=== PATIENT | female | born 1955 | race Caucasian/White ===

== ENCOUNTER 2016-04-04 18:03 | Inpatient (IN) | payer MEDICAID, OTHER ==
[2016-04-04] MEDS ORDERED: DUONEB 0.5-3 MG/3 ml Neb IH ONE ×2 (18:18→18:20)
[2016-04-04] MEDS ORDERED: solu-MEDROL 125 MG IV ONE (18:18)
--- NOTE | 2016-04-04 18:23 | ERPHSYRPT ---
- History of Present Illness Source: patient, family Timing/Duration: day(s) (few) Severity: severe Hx Tetanus, Diphtheria Vaccination/Date Given: Yes Hx Influenza Vaccination/Date Given: Yes Hx Pneumococcal Vaccination/Date Given: No <DELON JIANG - Last Filed: 04/04/16 19:21> <GARYEMANUEL BARNETTSH - Last Filed: 04/04/16 20:11> - History of Present Illness Time Seen by Provider: 04/04/16 18:12 Physician History: CC: short of air Hx: 60 y/o patient of dr Pawan Givens and Munir Benitez. She has couple day hx of increased dyspnea. Some cough. No fever or chills. She has hx of COPD. No hx of thromboembolic disease. No hx of CA or recent travel. Denies chest pain. Dyspnea worsened so came to ER. She used to use oxygen at home but no longer. 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 (DELON JIANG) Allergies/Adverse Reactions: No Known Drug Allergies Allergy (Verified 12/20/15 09:43) Home Medications: Escitalopram Oxalate 10 mg [Lexapro 10 MG] 10 mg PO DAILY 03/01/15 [History] Gabapentin 300 mg PO BID 03/01/15 [History] Simethicone 80 mg [Mylicon 80MG] 80 mg PO QID 03/01/15 [History] Amlodipine Besylate 10 mg [Norvasc 10 MG] 10 mg PO DAILY 09/26/15 [History] Budesonide/Formoterol Fumarate [Symbicort 160-4.5 Mcg Inhaler] 6 gm IH BID 09/25 [History] Ergocalciferol (Vitamin D2) [Vitamin D] 50,000 unit PO DAILY 09/26/15 [History] Ferrous Sulfate 325 mg PO BID 09/26/15 [History] Furosemide [Lasix] 40 mg PO DAILY 09/26/15 [History] Lisinopril [Zestril] 40 mg PO DAILY 09/26/15 [History] Omeprazole 20 MG [Prilosec 20 mg] 20 mg PO DAILY 09/26/15 [History] - Review of Systems Constitutional: Fatigue, Malaise, Weakness, No Fever, No Chills Eyes: No Symptoms Ears, Nose, & Throat: No Symptoms Respiratory: Cough, Dyspnea, Dyspnea on Exertion (AGARWAL) Cardiac: No Chest Pain, No Edema Abdominal/Gastrointestinal: No Abdominal Pain, No Nausea, No Vomiting Genitourinary Symptoms: No Dysuria Musculoskeletal: No Back Pain Skin: No Rash Neurological: No Headache All Other Systems: Reviewed and Negative <DELON JIANG Last Filed: 04/04/16 19:21> - Past Medical History Pertinent Past Medical History: Yes Neurological History: Seizures ENT History: No Pertinent History Cardiac History: No Pertinent History, Hypertension Respiratory History: COPD Endocrine Medical History: No Pertinent History Musculoskeletal History: Osteoarthritis GI Medical History: Gallbladder Disease, Hernia, Other History: Renal Disease Psycho-Social History: Anxiety, Depression Female Reproductive Disorders: No Pertinent History Other Medical History: PERF BOWEL 06/2013. pt states she had a seizure because she ran out of xanax, pt states she does not remember it, [facility] Pt states that her kidneys leak protein. - Past Surgical History Past Surgical History: Yes Neuro Surgical History: No Pertinent History Cardiac: No Pertinent History Respiratory: No Pertinent History Gastrointestinal: Cholecystectomy, Colon Resection Genitourinary: No Pertinent History Musculoskeletal: No Pertinent History Female Surgical History: No Pertinent History - Social History Smoking Status: Former smoker How long have you smoked: 30 Exposure to second hand smoke: No Drug Use: none Patient Lives Alone: No - Female History Hx Now: No <JIANGDELON Last Filed: 04/04/16 19:21> - Physical Exam General Appearance: alert, obese, other (dyspneic) Eye Exam: PERRL/EOMI Ears, Nose, Throat Exam: normal ENT inspection, moist mucous membranes Neck Exam: normal inspection, non-tender, supple Respiratory Exam: diminished breath sounds, wheezing (rare) Cardiovascular Exam: regular rate/rhythm, No murmur Gastrointestinal/Abdomen Exam: soft, other (ventral hernia), No tenderness, No distention Back Exam: normal inspection Extremity Exam: normal inspection, normal range of motion, No calf tenderness, No pedal edema Neurologic Exam: alert, oriented x 3, cooperative Skin Exam: warm, dry, No rash SpO2 Interpretation: hypoxic, ABG ordered, O2 applied SpO2: 77 Oxygen Delivery: Room Air <JIANGDELONDEVAUGHN - Last Filed: 04/04/16 19:21> - Course Nursing assessment & vital signs reviewed: Yes EKG Interpreted by Me: RATE (75), Sinus Rhythm, NORMAL AXIS, NORMAL INTERVALS ( QTc 331), Non-specific ST Changes <DELON JIANG - Last Filed: 04/04/16 19:21> <DELON JIANG - Last Filed: 04/04/16 19:21> - Progress Progress: improved Discussed with .: Delon Will see patient in: hospital (observation) Counseled pt/family regarding: lab results, diagnosis, need for follow-up, rad results <FREDI VEGA - Last Filed: 04/04/16 20:11> - Progress Progress Note: 04/04/16 19:21 Pt improved. She is weaning oxygen. She will have CTA to rule out PE. Cultures sent. Nebs, steroids and abtx given. Reported to Dr Vega for further care and disposition. (DELON JIANG) <DELON JIANG - Last Filed: 04/04/16 19:21> - Departure Time of Disposition: 20:09 Departure Disposition: In-patient Admission Critical Care Time: Yes Critical Care Time(excluding separately billable procedures): 30-74 minutes <FREDI VEGA - Last Filed: 04/04/16 20:11> - Departure Clinical Impression: Acute exacerbation of chronic obstructive airways disease, Acute on chronic respiratory failure with hypoxemia Pneumonia Qualifiers: Pneumonia type: due to other aerobic Gram-negative bacteria Laterality: bilateral Lung location: lower lobe of lung Qualified Code(s): J15.6 - Pneumonia due to other aerobic Gram-negative bacteria Condition: Fair Referrals: NIKKI GIVENS [Primary Care Provider] - Instructions: Chronic Obstructive Pulmonary Disease
[2016-04-04] MEDS ORDERED: solu-MEDROL 125 MG ONE (18:29)
[2016-04-04 18:33] LABS: A-aADO2 212; ALLEN TEST OK? YES; ARTERIAL BLD GAS O2 SATURATION 93.9 % (95-100); ARTERIAL BLOOD GAS FIO2 50 %; ARTERIAL BLOOD GAS PO2 66 mmHg (75-100); ARTERIAL BLOOD GAS pH 7.37 (7.35-7.45); Lactic Acid 0.8 (0.4-2.0)
[2016-04-04 18:34] LABS: Mean Cell Volume 98.3 fl (78-100); Mean Platelet Volume 9.8 fl (6-9.5); Platelet Count 395 K/mm3 (150-450); Red Cell Distribution Width 14.4 % (11.5-14.0); White Blood Count 16.2 K/mm3 (4.0-10.5)
[2016-04-04 18:40] LABS: Mean Corpuscular Hemoglobin 29.7 pg (26-32)
[2016-04-04 18:46] LABS: INR 0.98 (0.8-3.0)
[2016-04-04 18:48] LABS: PTT 31.8 SECONDS (25.3-37.0)
[2016-04-04] MEDS ORDERED: ROCEPHIN 1 Gm-D5w 50 ml Bag** 50 ML IV ONE ×2 (18:52→19:11)
[2016-04-04] MEDS ORDERED: Zithromax 500 MG/ 250 ML NaCl Premix 250 ML IV ONE ×2 (18:52→20:17)
[2016-04-04 18:57] LABS: ALBUMIN 3.2 g/dL (3.4-5.0); ALKALINE PHOSPHATASE 130 U/L (46-116); ANION GAP 6.6 MEQ/L (5-15); BILIRUBIN,TOTAL 0.4 mg/dL (0.2-1.0); BLOOD UREA NITROGEN 8 mg/dL (9-20); CHLORIDE 98 mEq/L (98-107); Carbon Dioxide 34.3 mEq/L (21-32); Glucose 150 MG/DL (70-110); Potassium 3.2 mEq/L (3.5-5.1); SGOT/AST 17 U/L (15-37); SGPT/ALT 21 U/L (12-78); SODIUM 136 mEq/L (136-145); Total Protein 7.8 gm/dL (6.4-8.2)
[2016-04-04 19:02] LABS: TROPONIN < 0.017 ng/ml (0.000-0.056)
[2016-04-04 19:12] LABS: Eosinophil 1 % (0.00-3.0); Platelet Estimate NORMAL (NORMAL); Total Cells Counted 100
--- NOTE | 2016-04-04 20:02 | XRAY ---
Indication: Dyspnea. Comparison: July 07, 2013 Portable chest again markedly limited by patient body habitus. Lungs are also less inflated accentuating the cardiopulmonary structures. Diffuse bilateral hazy opacities either infiltrates versus atelectasis that should be correlated clinically. No pneumothorax. CT may yield further information if clinically warranted.
[2016-04-04] MEDS: XANAX 1 MG PO SCH (23:28)
[2016-04-05] MEDS ORDERED: DUONEB 0.5-3 MG/3 ml Neb IH ONE (00:45)
[2016-04-05] MEDS: DUONEB 0.5-3 MG/3 ml Neb IH SCH ×4 (01:28→19:10)
[2016-04-05] MEDS: Advair Hfa 230/21 Mcg COMMON CANISTER IH SCH ×2 (07:08→19:11)
--- NOTE | 2016-04-05 08:50 | XRAY ---
Indication: Short of breath, cough, and elevated WBC. Elevated d-dimer. Multiple contiguous axial images obtained through the chest using 80 cc Isovue-370 contrast and PE protocol. Comparison: Conventional CT chest with contrast exam of February 28, 2015. There is adequate opacification of the pulmonary arteries. Evaluation for pulmonary embolus distal to the lobar branches limited due to body habitus. No filling defect or pulmonary embolus in the more central pulmonary arteries. The heart is now enlarged. No pericardial effusion/thickening. Aorta again minimally calcified without aneurysm/dissection. Again a few small mediastinal nodes, largest right subcarinal measuring 11 x 21 mm. Examination of the lung parenchyma demonstrates increasing small bilateral effusions and bibasilar dependent atelectasis. Also new diffuse infiltrates throughout the left upper and left lower lobes with lesser degree in the right upper lobe. Bony thorax intact with minimal degenerative changes throughout the spine and old right rib fractures. Limited upper abdomen again demonstrates fatty liver and 12 cm splenomegaly. Impression: 1. Pulmonary embolus evaluation limited due to body habitus. No central pulmonary embolus. 2. New cardiomegaly with bilateral pleural effusions. Rule out cardiac decompensation. 3. New bilateral infiltrates, left greater than right favoring pneumonia. 4. Stable fatty liver and splenomegaly. CTDI 23.69
[2016-04-05] MEDS: XANAX 1 MG PO SCH ×3 (09:44→21:35)
--- NOTE | 2016-04-05 09:50 | PCM.HP ---
History of Present Illness - Chief Complaint Chief Complaint: Shortness of Breath History of Present Illness: is a 60 year old female who presented with shortness of breath, she hasn't had much cough, no fever, no swelling in her extremities. She has a history of copd, ct scan showed pneumonia in ER, no PE. - Review of Systems Constitutional: No Fever, No Chills Respiratory: Short Of Breath, No Cough Cardiac: No Chest Pain, No Edema, No Syncope Abdominal/Gastrointestinal: No Abdominal Pain, No Nausea, No Vomiting, No Diarrhea All Other Systems: Reviewed and Negative Medications & Allergies Home Medications: Home Medication List Escitalopram Oxalate 10 mg [Lexapro 10 MG] 10 mg PO DAILY 03/01/15 [History Confirmed 12/20/15] Gabapentin 300 mg PO BID 03/01/15 [History Confirmed 12/20/15] Simethicone 80 mg [Mylicon 80MG] 80 mg PO QID 03/01/15 [History Confirmed 12/20/15] Alprazolam 1 mg [Xanax 1 mg] 1 mg PO TID #90 tablet 03/02/15 [Rx Confirmed 12/20/15] Amlodipine Besylate 10 mg [Norvasc 10 MG] 10 mg PO DAILY 09/26/15 [History Confirmed 12/20/15] Budesonide/Formoterol Fumarate [Symbicort 160-4.5 Mcg Inhaler] 6 gm IH BID 09/25 [History Confirmed 12/20/15] Ergocalciferol (Vitamin D2) [Vitamin D] 50,000 unit PO DAILY 09/26/15 [History Confirmed 12/20/15] Ferrous Sulfate 325 mg PO BID 09/26/15 [History Confirmed 12/20/15] Furosemide [Lasix] 40 mg PO DAILY 09/26/15 [History Confirmed 12/20/15] Lisinopril [Zestril] 40 mg PO DAILY 09/26/15 [History Confirmed 12/20/15] Omeprazole 20 MG [Prilosec 20 mg] 20 mg PO DAILY 09/26/15 [History Confirmed 08/29] Potassium Chloride 10 Meq Tab* [Klor Con 10 MEQ] 10 meq PO QID #120 [Rx Confirmed 09/26/15] Allergies/Adverse Reactions: Allergies Allergy/AdvReac Type Severity Reaction Status Date / Time No Known Drug Allergies Allergy Verified 12/20/15 09:43 - Past Medical History Past Medical History: Yes Neurological History: Seizures ENT History: No Pertinent History Cardiac History: No Pertinent History, Hypertension Respiratory History: COPD Endocrine Medical History: No Pertinent History Musculoskelatal History: Osteoarthritis GI Medical History: Gallbladder Disease, Hernia, Other History: Renal Disease Pyscho-Social History: Anxiety, Depression Reproductive Disorders: No Pertinent History Comment: PERF BOWEL 06/2013. pt states she had a seizure because she ran out of xanax, pt states she does not remember it, [facility] Pt states that her kidneys leak protein. - Female History Are you now?: No - Past Surgical History Past Surgical History: Yes Neuro Surgical History: No Pertinent History Cardiac History: No Pertinent History Respiratory Surgery: No Pertinent History GI Surgical History: Cholecystectomy, Colon Resection Genitourinary Surgical Hx: No Pertinent History Musculskeletal Surgical Hx: No Pertinent History Female Surgical History: No Pertinent History - Social History Smoking Status: Former smoker How long have you smoked: 30 Exposure to second hand smoke: No Alcohol: None Drug Use: none - Physical Exam Vital Signs: Vital Signs - 24 hr Temp Pulse Resp BP Pulse Ox 04/05/16 07:23 98.7 F 80 20 128/74 96 04/05/16 07:00 84 24 83 L 04/05/16 04:00 98.8 F 76 20 131/77 92 L 04/05/16 01:32 73 24 92 L 04/05/16 00:00 98.6 F 88 24 141/76 93 L 04/04/16 22:00 98.3 F 82 24 156/71 92 L 04/04/16 21:58 72 22 92 L 04/04/16 20:15 75 22 152/130 92 L 04/04/16 19:22 77 L 04/04/16 19:18 75 26 H 137/59 93 L 04/04/16 18:34 76 28 H 92 L 04/04/16 18:25 77 L 04/04/16 18:11 90 28 H 126/62 94 L Oxygen-Last 24 hours O2 Percentage 5 Liters = 40% O2 Percentage 5 Liters = 40% O2 Percentage 5 Liters = 40% O2 Percentage 5 Liters = 40% O2 Percentage 5 Liters = 40% O2 Percentage 35% O2 Percentage 50% O2 Percentage 50% General Appearance: no apparent distress, alert, obese Respiratory Exam: crackles/rales Cardiovascular Exam: regular rate/rhythm, normal heart sounds, normal peripheral pulses Gastrointestinal/Abdomen Exam: soft, normal bowel sounds, No tenderness, No mass Extremity Exam: normal inspection, normal range of motion, pedal edema, swelling Skin Exam: normal color, warm, dry, No rash Results - Other Procedures and Tests Respiratory Therapy 04/04/16 22:18 Oxygen NASAL CANNULA 2 lpm 04/04/16 22:19 Respiratory MDI BID 04/04/16 22:20 neb [Respiratory Nebulizer] Q6H Assessment/Plan (1) Acute exacerbation of chronic obstructive airways disease Current Visit: Yes Status: Acute Assessment & Plan: continue IV steroids and rocephin/zithromax Code(s): J44.1 - CHRONIC OBSTRUCTIVE PULMONARY DISEASE W (ACUTE) EXACERBATION (2) Pneumonia Current Visit: Yes Status: Acute Qualifiers: Pneumonia type: due to other aerobic Gram-negative bacteria Laterality: bilateral Lung location: lower lobe of lung Qualified Code(s): J15.6 - Pneumonia due to other aerobic Gram-negative bacteria Assessment & Plan: continue rocephin and zithromax Code(s): J18.9 - PNEUMONIA, UNSPECIFIED ORGANISM
[2016-04-05] MEDS: solu-MEDROL 125 MG IV SCH ×2 (10:10→16:11)
[2016-04-05] MEDS: ENOXAPARIN SODIUM SQ SCH (10:10)
[2016-04-05] MEDS: TYLENOL 325 MG PO PRN ×2 (10:10→21:35)
[2016-04-05] MEDS: NEURONTIN 300 MG PO SCH ×2 (16:10→21:35)
[2016-04-05] MEDS: NORVASC 5 MG PO SCH (16:10)
[2016-04-05] MEDS: Zestril 20 MG PO SCH (16:10)
[2016-04-05] MEDS: Lexapro 10 MG PO SCH (16:10)
[2016-04-05] MEDS: Mylicon 80MG PO SCH ×2 (16:10→21:34)
[2016-04-05] MEDS: FEOSOL 325 MG PO SCH (21:34)
[2016-04-05] MEDS: ROCEPHIN 1 Gm-D5w 50 ml Bag** 50 ML IV SCH (21:35)
[2016-04-05] MEDS: Sodium Chloride 0.9% 10 ML FLUSH Syringe IV SCH (21:36)
[2016-04-05] MEDS: Ambien 5 MG Tablet PO PRN (21:36)
[2016-04-05] MEDS ORDERED: NON-FORMULARY ITEM (Ferrous Sulfate [Ferrous Sulfate] 325 MG) PO SCH (22:00)
[2016-04-05] MEDS: Zithromax 500 MG/ 250 ML NaCl Premix 250 ML IV SCH (22:12)
[2016-04-06] MEDS: DUONEB 0.5-3 MG/3 ml Neb IH SCH ×4 (00:28→19:13)
[2016-04-06] MEDS: solu-MEDROL 125 MG IV SCH ×3 (01:01→17:07)
[2016-04-06] MEDS: Advair Hfa 230/21 Mcg COMMON CANISTER IH SCH ×2 (05:58→19:13)
[2016-04-06 06:00] LABS: Mean Cell Volume 100.6 fl (78-100); Mean Platelet Volume 9.7 fl (6-9.5); Platelet Count 401 K/mm3 (150-450); Red Blood Count 3.63 M/mm3 (4.1-5.4); Red Cell Distribution Width 14.5 % (11.5-14.0); White Blood Count 17.1 K/mm3 (4.0-10.5)
[2016-04-06 06:02] LABS: Mean Corpuscular Hemoglobin 29.4 pg (26-32)
[2016-04-06] MEDS: XANAX 1 MG PO SCH ×3 (06:13→21:30)
[2016-04-06] MEDS: Sodium Chloride 0.9% 10 ML FLUSH Syringe IV SCH ×3 (06:14→21:31)
[2016-04-06 06:25] LABS: ANION GAP 11.2 MEQ/L (5-15); Carbon Dioxide 32.1 mEq/L (21-32); Potassium 3.8 mEq/L (3.5-5.1)
--- NOTE | 2016-04-06 07:31 | PCM.NOTE ---
Date and Time: 04/06/16728 Subjective Assessment: patient feeling a little better, seems like right lung is opening up and she is bringing up more sputum. Objective Exam General Appearance: obese Skin Exam: normal color, warm, dry Respiratory Exam: prolonged expirations, crackles/rales Cardiovascular Exam: regular rate/rhythm, normal heart sounds Gastrointestinal/Abdomen Exam: soft, No tenderness, No mass Extremity Exam: normal inspection, normal range of motion OBJECTIVE DATA Vital Signs: Vital Signs - 24 hr Temp Pulse Resp BP Pulse Ox 04/06/16 07:15 97.8 F 81 22 106/58 96 04/06/16 05:59 82 24 93 L 04/06/16 04:00 97.6 F 83 26 H 123/58 95 04/06/16 00:31 80 20 94 L 04/06/16 00:00 97.8 F 80 20 100/51 97 04/05/16 20:00 98.1 F 85 22 129/73 95 04/05/16 19:00 85 22 95 04/05/16 15:44 97.8 F 70 18 118/68 94 L 04/05/16 13:00 73 18 95 04/05/16 12:18 97.7 F 78 22 115/63 96 Oxygen-Last 24 hours O2 Percentage 5 Liters = 40% O2 Percentage 5 Liters = 40% O2 Percentage 5 Liters = 40% O2 Percentage 5 Liters = 40% O2 Percentage 5 Liters = 40% Pain Assessment - Last Documented Pain Intensity 2 Pain Scale Used 0-10 Pain Scale Intake and Output: Intake & Output 04/03/16 04/04/16 04/05/16 04/06/16 11:59 11:59 11:59 11:59 Intake Total 1785 1740 Balance 1785 1740 Weight 117.843 kg Lab Results: Lab Results-Last 24 Hours 04/06/16 04/06/16 Range/Units 04:30 04:30 WBC 17.1 H (4.0-10.5) K/mm3 RBC 3.63 L (4.1-5.4) M/mm3 Hgb 10.7 L (12.0-16.0) gm/dl Hct 36.5 (35-47) % MCV 100.6 H (78-100) fl MCH 29.4 (26-32) pg MCHC 29.3 L (32-36) g/dl RDW 14.5 H (11.5-14.0) % Plt Count 401 (150-450) K/mm3 MPV 9.7 H (6-9.5) fl Sodium 138 (136-145) mEq/L Potassium 3.8 (3.5-5.1) mEq/L Chloride 98 (98-107) mEq/L Carbon Dioxide 32.1 H (21-32) mEq/L Anion Gap 11.2 (5-15) MEQ/L BUN 13 (9-20) mg/dL Creatinine 1.10 (0.55-1.30) mg/dl Estimated GFR 54 ML/MIN Glucose 332 H (70-110) MG/DL Calcium 8.5 (8.5-10.1) mg/dL NT-Pro-B Natriuret Pep 1886 H (0-125) pg/ml Multi-Disciplinary Progress Notes: Multi-Disciplinary Progress Notes 04/05/16 08:46 Case Management Note by Martha Carreon DISCHARGE PLAN REVIEWED. NORMALLY LIVES AT HOME WITH ONE GROWN CHILD IN THE HOME, INDEPENDENT OF ALL ADL'S. PT HAS A WALKER, NO OTHER DME'S. PLAN TO RETURN HOME TO PRE EPISODIC LEVEL OF FUNCTION. WILL CONTINUE TO MONITOR FOR ALL DISCHARGE NEEDS. Initialized on 04/05/16 08:46 - END OF NOTE Assessment/Plan (1) Acute exacerbation of chronic obstructive airways disease Current Visit: Yes Status: Acute Assessment & Plan: continue IV solu medrol and abx. improving at this time Code(s): J44.1 - CHRONIC OBSTRUCTIVE PULMONARY DISEASE W (ACUTE) EXACERBATION (2) Pneumonia Current Visit: Yes Status: Acute Qualifiers: Pneumonia type: due to other aerobic Gram-negative bacteria Laterality: bilateral Lung location: lower lobe of lung Qualified Code(s): J15.6 - Pneumonia due to other aerobic Gram-negative bacteria Code(s): J18.9 - PNEUMONIA, UNSPECIFIED ORGANISM
[2016-04-06] MEDS: ENOXAPARIN SODIUM SQ SCH (09:03)
[2016-04-06] MEDS: FEOSOL 325 MG PO SCH ×2 (09:04→21:30)
[2016-04-06] MEDS: NEURONTIN 300 MG PO SCH ×2 (09:04→21:30)
[2016-04-06] MEDS: Lexapro 10 MG PO SCH (09:04)
[2016-04-06] MEDS: NORVASC 5 MG PO SCH (09:04)
[2016-04-06] MEDS: Zestril 20 MG PO SCH (09:05)
[2016-04-06] MEDS: Mylicon 80MG PO SCH ×4 (09:07→21:30)
[2016-04-06 09:25] LABS: BAND 3 % (0.0-2.0); Platelet Estimate NORMAL (NORMAL); Total Cells Counted 100
[2016-04-06 09:27] LABS: Polychromasia 2+
[2016-04-06 09:28] LABS: Basophilic Stippling 2+
[2016-04-06] MEDS ORDERED: NON-FORMULARY ITEM (Amlodipine Besylate 10 Mg [Norvasc 10 Mg] 10 MG) PO SCH (10:00)
[2016-04-06] MEDS ORDERED: NON-FORMULARY ITEM (Lisinopril [Zestril] 40 MG) PO SCH (10:00)
[2016-04-06] MEDS: TYLENOL 325 MG PO PRN (19:57)
[2016-04-06] MEDS: ROCEPHIN 1 Gm-D5w 50 ml Bag** 50 ML IV SCH (21:29)
[2016-04-06] MEDS: Ambien 5 MG Tablet PO PRN (21:32)
[2016-04-06] MEDS: Zithromax 500 MG/ 250 ML NaCl Premix 250 ML IV SCH (22:08)
[2016-04-07] MEDS: solu-MEDROL 125 MG IV SCH (01:00)
[2016-04-07] MEDS: DUONEB 0.5-3 MG/3 ml Neb IH SCH ×4 (01:46→18:48)
[2016-04-07 05:48] LABS: Mean Cell Volume 101.4 fl (78-100); Mean Platelet Volume 9.8 fl (6-9.5); Platelet Count 352 K/mm3 (150-450); Red Blood Count 3.56 M/mm3 (4.1-5.4); Red Cell Distribution Width 14.7 % (11.5-14.0); White Blood Count 14.1 K/mm3 (4.0-10.5)
[2016-04-07 05:53] LABS: Mean Corpuscular Hemoglobin 29.7 pg (26-32)
[2016-04-07 06:04] LABS: ANION GAP 8.3 MEQ/L (5-15); Carbon Dioxide 35.3 mEq/L (21-32); Potassium 4.1 mEq/L (3.5-5.1)
[2016-04-07] MEDS: Advair Hfa 230/21 Mcg COMMON CANISTER IH SCH ×2 (06:17→18:48)
[2016-04-07] MEDS: Sodium Chloride 0.9% 10 ML FLUSH Syringe IV SCH ×3 (06:23→22:35)
[2016-04-07] MEDS: XANAX 1 MG PO SCH ×3 (06:24→21:34)
[2016-04-07] MEDS: TYLENOL 325 MG PO PRN ×2 (06:29→21:34)
[2016-04-07 06:38] LABS: Platelet Estimate NORMAL (NORMAL); Total Cells Counted 100
--- NOTE | 2016-04-07 08:18 | PCM.NOTE ---
Date and Time: 04/07/16812 Subjective Assessment: Very short of breath currently with just ambulating from the restroom. She reports no previous known heart disease but does state she was taking lasix prior to coming to the hospital every day. She was being treated for c. diff in the recent past as well. Objective Exam General Appearance: mild distress, obese, other (short of breath after ambulation) Neurologic Exam: alert, oriented x 3 Skin Exam: warm, dry Ears, Nose, Throat Exam: moist mucous membranes Neck Exam: non-tender, supple Respiratory Exam: other (limited by obesity no wheezing minimal rales throughout ) Cardiovascular Exam: regular rate/rhythm, other (limited by obesity) Gastrointestinal/Abdomen Exam: soft, normal bowel sounds, No tenderness Extremity Exam: No calf tenderness, No pedal edema OBJECTIVE DATA Vital Signs: Vital Signs - 24 hr Temp Pulse Resp BP Pulse Ox 04/07/16 07:15 97.7 F 76 19 99/49 96 04/07/16 06:18 84 18 93 L 04/07/16 04:00 98.4 F 86 18 115/59 93 L 04/07/16 01:46 75 22 94 L 04/06/16 23:42 98.5 F 82 24 123/58 95 04/06/16 20:00 97.8 F 78 24 136/64 94 L 04/06/16 19:14 75 18 93 L 04/06/16 16:18 98 F 70 20 132/66 96 04/06/16 12:41 97.7 F 90 20 130/60 94 L 04/06/16 11:00 88 20 97 Oxygen-Last 24 hours O2 Percentage 5 Liters = 40% O2 Percentage 5 Liters = 40% O2 Percentage 5 Liters = 40% O2 Percentage 5 Liters = 40% O2 Percentage 5 Liters = 40% O2 Percentage 5 Liters = 40% Pain Assessment - Last Documented Pain Intensity 5 Pain Scale Used FLACC Intake and Output: Intake & Output 04/04/16 04/05/16 04/06/16 04/07/16 11:59 11:59 11:59 11:59 Intake Total 1781979 1860 Output Total 200 Balance 1785 1780 1860 Weight 117.843 kg Lab Results: Lab Results-Last 24 Hours 04/06/16 04/07/16 04/07/16 Range/Units 04:30 05:40 05:40 WBC 17.1 H 14.1 H (4.0-10.5) K/mm3 RBC 3.63 L 3.56 L (4.1-5.4) M/mm3 Hgb 10.7 L 10.6 L (12.0-16.0) gm/dl Hct 36.5 36.1 (35-47) % MCV 100.6 H 101.4 H (78-100) fl MCH 29.4 29.7 (26-32) pg MCHC 29.3 L 29.4 L (32-36) g/dl RDW 14.5 H 14.7 H (11.5-14.0) % Plt Count 401 352 (150-450) K/mm3 MPV 9.7 H 9.8 H (6-9.5) fl Segmented Neutrophils 94 H 94 H (36.0-66.0) % Band Neutrophils 3 H (0.0-2.0) % Lymphocytes (Manual) 2 L 6 L (24-44) % Monocytes (Manual) 1 (0.0-12.0) % Differential Comment ABNORMAL NORMAL Platelet Estimate NORMAL NORMAL (NORMAL) Polychromasia 2+ Basophilic Stippling 2+ Sodium 138 (136-145) mEq/L Potassium 4.1 (3.5-5.1) mEq/L Chloride 98 (98-107) mEq/L Carbon Dioxide 35.3 H (21-32) mEq/L Anion Gap 8.3 (5-15) MEQ/L BUN 16 (9-20) mg/dL Creatinine 1.07 (0.55-1.30) mg/dl Estimated GFR 56 ML/MIN Glucose 370 H (70-110) MG/DL Calcium 8.2 L (8.5-10.1) mg/dL Radiology Exams: Radiology Procedures Category Date Time Status CHEST 1 VIEW (PORTABLE) Routine Exams 04/07/16 08:12 Ordered ECHO W/2D AND DOPPLER [US] Routine Exams 04/07/16 08:09 Ordered Assessment/Plan (1) Pneumonia Current Visit: Yes Status: Acute Qualifiers: Pneumonia type: due to other aerobic Gram-negative bacteria Laterality: bilateral Lung location: lower lobe of lung Qualified Code(s): J15.6 - Pneumonia due to other aerobic Gram-negative bacteria Assessment & Plan: weant the steroid add accucheck and sliding scale with the elevated sugars check echo with the cardiomegaly wean O2 as tolerated although still on 5L repeat cxr with the severe sob restart her lasix and potassium Code(s): J18.9 - PNEUMONIA, UNSPECIFIED ORGANISM (2) Acute on chronic respiratory failure with hypoxemia Current Visit: Yes Status: Acute Code(s): J96.21 - ACUTE AND CHRONIC RESPIRATORY FAILURE WITH HYPOXIA (3) Acute exacerbation of chronic obstructive airways disease Current Visit: Yes Status: Acute Code(s): J44.1 - CHRONIC OBSTRUCTIVE PULMONARY DISEASE W (ACUTE) EXACERBATION (4) Hypertension Current Visit: Yes Status: Chronic Assessment & Plan: hold amlodipine witht he lower pressures Code(s): I10 - ESSENTIAL (PRIMARY) HYPERTENSION (5) Anxiety Current Visit: Yes Status: Chronic Code(s): F41.9 - ANXIETY DISORDER, UNSPECIFIED (6) Anemia Current Visit: Yes Status: Acute Code(s): D64.9 - ANEMIA, UNSPECIFIED (7) Morbid obesity Current Visit: Yes Status: Chronic Code(s): E66.01 - MORBID (SEVERE) OBESITY DUE TO EXCESS CALORIES
[2016-04-07] MEDS: FEOSOL 325 MG PO SCH ×2 (08:33→21:34)
[2016-04-07] MEDS: ENOXAPARIN SODIUM SQ SCH (08:33)
[2016-04-07] MEDS: Lexapro 10 MG PO SCH (08:35)
[2016-04-07] MEDS: Lasix 40 MG PO SCH (08:35)
[2016-04-07] MEDS: Klor Con 10 MEQ PO SCH (08:35)
[2016-04-07] MEDS: Mylicon 80MG PO SCH ×4 (08:36→21:34)
[2016-04-07] MEDS: NEURONTIN 300 MG PO SCH ×2 (08:36→21:34)
[2016-04-07] MEDS: Zestril 20 MG PO SCH (08:36)
--- NOTE | 2016-04-07 09:03 | XRAY ---
Indication: Short of breath. Comparison: April 04, 2016 Portable chest again limited by body habitus and appears grossly unchanged with underinflated lungs, bilateral infiltrates/atelectasis/effusion, and borderline cardiomegaly. No new cardiopulmonary findings.
[2016-04-07] MEDS ORDERED: DELTASONE 20 MG PO SCH (10:00)
[2016-04-07] MEDS: NovoLOG Insulin SQ PRN ×3 (11:22→22:25)
[2016-04-07] MEDS: ROCEPHIN 1 Gm-D5w 50 ml Bag** 50 ML IV SCH (21:35)
[2016-04-07] MEDS: Ambien 5 MG Tablet PO PRN (21:43)
[2016-04-07] MEDS: Zithromax 500 MG/ 250 ML NaCl Premix 250 ML IV SCH (22:26)
[2016-04-08] MEDS: DUONEB 0.5-3 MG/3 ml Neb IH SCH ×4 (00:38→19:43)
[2016-04-08 05:47] LABS: Mean Cell Volume 99.7 fl (78-100); Mean Platelet Volume 9.7 fl (6-9.5); Platelet Count 342 K/mm3 (150-450); Red Blood Count 3.63 M/mm3 (4.1-5.4); Red Cell Distribution Width 14.6 % (11.5-14.0)
[2016-04-08 05:51] LABS: Mean Corpuscular Hemoglobin 29.4 pg (26-32)
[2016-04-08 06:09] LABS: ANION GAP 8.5 MEQ/L (5-15); Carbon Dioxide 37.9 mEq/L (21-32); Potassium 3.7 mEq/L (3.5-5.1)
[2016-04-08] MEDS: Advair Hfa 230/21 Mcg COMMON CANISTER IH SCH ×2 (06:49→19:43)
[2016-04-08] MEDS: XANAX 1 MG PO SCH ×3 (07:09→21:54)
[2016-04-08] MEDS ORDERED: Klor Con 10 MEQ PO ONE (07:41)
[2016-04-08] MEDS ORDERED: Lasix 20 MG/2 ML IV ONE (07:41)
--- NOTE | 2016-04-08 07:46 | PCM.NOTE ---
Date and Time: 04/08/1642 Subjective Assessment: still short of breath but slowly improving no new symptoms no swelling no pain Objective Exam General Appearance: obese Neurologic Exam: alert, oriented x 3, cooperative Skin Exam: warm, dry Eye Exam: No scleral icterus Ears, Nose, Throat Exam: moist mucous membranes Neck Exam: non-tender, supple Respiratory Exam: crackles/rales (bibasilar with mild rhonchi exam is limited by body habitus/extreme obesity) Cardiovascular Exam: regular rate/rhythm (distant heart sounds limited by obesity) Gastrointestinal/Abdomen Exam: soft, normal bowel sounds, No tenderness Extremity Exam: No calf tenderness, No pedal edema OBJECTIVE DATA Vital Signs: Vital Signs - 24 hr Temp Pulse Resp BP Pulse Ox 04/08/16 07:26 98.3 F 74 18 135/60 95 04/08/16 07:00 74 20 97 04/08/16 04:00 98.3 F 92 H 19 113/54 92 L 04/08/16 00:38 82 19 95 04/08/16 00:00 98.1 F 85 21 126/62 96 04/07/16 20:00 98.9 F 83 21 127/56 94 L 04/07/16 18:00 87 20 95 04/07/16 16:00 20 04/07/16 15:55 97.7 F 82 20 118/52 93 L 04/07/16 12:00 74 18 98 04/07/16 11:18 97.7 F 87 21 143/65 96 04/07/16 08:42 75 132/76 04/07/16 08:00 19 Oxygen-Last 24 hours O2 Percentage 3 Liters = 32% O2 Percentage 4 Liters = 36% O2 Percentage 4 Liters = 36% O2 Percentage 4 Liters = 36% O2 Percentage 5 Liters = 40% Pain Assessment - Last Documented Pain Intensity 5 Pain Scale Used 0-10 Pain Scale Intake and Output: Intake & Output 04/05/16 04/06/16 04/07/16 04/08/16 11:59 11:59 11:59 11:59 Intake Total 1784 1979 1859 1500 Output Total 200 Balance 1784 1779 1860 1500 Weight 117.843 kg 117.843 kg Lab Results: Accuchecks Date 04/07/16 Date 04/07/16 Date 04/07/16 Date 04/07/16 Time 16:30 Time 11:30 Time 11:22 Accucheck Value: 247 Accucheck Value: 234 Accucheck Value: 328 Accucheck Value: 328 Lab Results-Last 24 Hours 04/07/16 04/08/16 04/08/16 Range/Units 08:19 05:40 05:40 WBC 13.0 H (4.0-10.5) K/mm3 RBC 3.63 L (4.1-5.4) M/mm3 Hgb 10.7 L (12.0-16.0) gm/dl Hct 36.2 (35-47) % MCV 99.7 (78-100) fl MCH 29.4 (26-32) pg MCHC 29.6 L (32-36) g/dl RDW 14.6 H (11.5-14.0) % Plt Count 342 (150-450) K/mm3 MPV 9.7 H (6-9.5) fl Sodium 142 (136-145) mEq/L Potassium 3.7 (3.5-5.1) mEq/L Chloride 99 (98-107) mEq/L Carbon Dioxide 37.9 H (21-32) mEq/L Anion Gap 8.5 (5-15) MEQ/L BUN 19 (9-20) mg/dL Creatinine 1.08 (0.55-1.30) mg/dl Estimated GFR 55 ML/MIN Glucose 210 H (70-110) MG/DL Hemoglobin A1c 6.8 H (4.5-6.2) Calcium 8.4 L (8.5-10.1) mg/dL Radiology Exams: Radiology Procedures Category Date Time Status CHEST 1 VIEW (PORTABLE) Routine Exams 04/07/16 08:12 Completed ECHO W/2D AND DOPPLER [US] Routine Exams 04/07/16 08:09 Taken Assessment/Plan (1) Pneumonia Current Visit: Yes Status: Acute Qualifiers: Pneumonia type: due to other aerobic Gram-negative bacteria Laterality: bilateral Lung location: lower lobe of lung Qualified Code(s): J15.6 - Pneumonia due to other aerobic Gram-negative bacteria Assessment & Plan: continue the ceftriaxone/azithromycin oxygen requirement is improving was on 5L yesterday weaned to 3L today will give a dose of iv lasix with the effusions and rales. continue the po lasix per routine. wean the steroid sugar a little better on the lower dose plan for home tomorrow with or without oxygen will try to see if the requirement can wean a little more today. awaiting results of echocardiogram. Code(s): J18.9 - PNEUMONIA, UNSPECIFIED ORGANISM (2) Acute on chronic respiratory failure with hypoxemia Current Visit: Yes Status: Acute Code(s): J96.21 - ACUTE AND CHRONIC RESPIRATORY FAILURE WITH HYPOXIA (3) Acute exacerbation of chronic obstructive airways disease Current Visit: Yes Status: Acute Code(s): J44.1 - CHRONIC OBSTRUCTIVE PULMONARY DISEASE W (ACUTE) EXACERBATION (4) Hypertension Current Visit: Yes Status: Chronic Code(s): I10 - ESSENTIAL (PRIMARY) HYPERTENSION (5) Anxiety Current Visit: Yes Status: Chronic Code(s): F41.9 - ANXIETY DISORDER, UNSPECIFIED (6) Anemia Current Visit: Yes Status: Acute Code(s): D64.9 - ANEMIA, UNSPECIFIED (7) Morbid obesity Current Visit: Yes Status: Chronic Code(s): E66.01 - MORBID (SEVERE) OBESITY DUE TO EXCESS CALORIES (8) Pleural effusion Current Visit: Yes Status: Acute Code(s): J90 - PLEURAL EFFUSION, NOT ELSEWHERE CLASSIFIED
[2016-04-08] MEDS: NEURONTIN 300 MG PO SCH ×2 (08:16→21:40)
[2016-04-08] MEDS: Mylicon 80MG PO SCH ×4 (08:16→21:40)
[2016-04-08] MEDS: Lasix 40 MG PO SCH (08:16)
[2016-04-08] MEDS: Lexapro 10 MG PO SCH (08:17)
[2016-04-08] MEDS: DELTASONE 20 MG PO SCH (08:17)
[2016-04-08] MEDS: Zestril 20 MG PO SCH (08:17)
[2016-04-08] MEDS: FEOSOL 325 MG PO SCH ×2 (08:17→21:40)
[2016-04-08] MEDS: ENOXAPARIN SODIUM SQ SCH (08:18)
[2016-04-08] MEDS: Klor Con 10 MEQ PO SCH (08:18)
[2016-04-08] MEDS: Sodium Chloride 0.9% 10 ML FLUSH Syringe IV SCH ×3 (08:18→21:40)
[2016-04-08] MEDS: NovoLOG Insulin SQ PRN ×4 (08:18→21:42)
--- NOTE | 2016-04-08 12:01 | ECHO ---
Transthoracic echocardiographic examination and color Doppler was done on 04/07/2016. INDICATION: Shortness of breath, hypertension. The study is very limited because of limited acoustic window. The left ventricle was only partially visualized. The estimated global left ventricular ejection fraction is probably in the range of about 50%. The left atrium appears to be mildly dilated. The right ventricular systolic pressure is 26 mm of Mercury. The mitral, aortic, tricuspid and pulmonic valves are not well visualized. IMPRESSION: THIS IS A FAIRLY LIMITED STUDY WHICH PRECLUDES ADEQUATE ASSESSMENT OF THE INTRACARDIAC ANATOMY AND PHYSIOLOGY.
[2016-04-08] MEDS: TYLENOL 325 MG PO PRN ×2 (12:17→21:41)
[2016-04-08] MEDS: ROCEPHIN 1 Gm-D5w 50 ml Bag** 50 ML IV SCH (21:40)
[2016-04-08] MEDS: Ambien 5 MG Tablet PO PRN (21:42)
[2016-04-09] MEDS: Zithromax 500 MG/ 250 ML NaCl Premix 250 ML IV SCH (00:15)
[2016-04-09] MEDS: DUONEB 0.5-3 MG/3 ml Neb IH SCH ×4 (01:14→13:09)
[2016-04-09] MEDS: XANAX 1 MG PO SCH ×2 (06:06→13:04)
[2016-04-09] MEDS: Sodium Chloride 0.9% 10 ML FLUSH Syringe IV SCH ×2 (06:06→13:06)
[2016-04-09] MEDS: Advair Hfa 230/21 Mcg COMMON CANISTER IH SCH (07:00)
[2016-04-09] MEDS: NovoLOG Insulin SQ PRN ×3 (07:55→16:45)
--- NOTE | 2016-04-09 08:07 | PCM.DS ---
Discharge Summary Date of Admission: 04/04/16 21:19 Date of Discharge: 04/09/16 Admitting Physician: VERENICE ARREDONDO Primary Care Provider: NIKKI GIVENS Allergies Allergies No Known Drug Allergies Allergy (Verified 12/20/15 09:43) Hospital Summary - Hospital Course Hospital Course: Ms. Tavarez presented with acute COPD exacerbation with pneumonia. Her extreme obesity limits her evaluations and therapies. SHe had previously been on home oxygen. She refuses evaluation for cpap. She follows with pulmonology. She was treated with iv ceftriaxone and azithromycin and iv steroids weaned to po and tolerated this well with nebs. Her symptoms were improving. She initially had CT with no PE seen. She had echo but her obesity limited the windows available for assessment and it was felt it was at 50% for her LVEF. She was able to wean her O2 down but was qualifying for home O2 with pulmonary follow up and tapering dose of prednisone. She had hyperglycemia secondary to her steroids and was covered with insulin this improved with tapering insulin and A1c was at 6.8% and she will f/u with outpatient for discussion of further treatment of this. - Vitals & Intake/Output Vital Signs: Vital Signs Temperature 97.7 F 04/09/16 08:00 Pulse Rate 77 04/09/16 08:00 Respiratory Rate 22 04/09/16 08:00 Blood Pressure 141/63 04/09/16 08:00 O2 Sat by Pulse Oximetry 94 L 04/09/16 08:00 Oxygen-Last Documented O2 Percentage 4 Liters = 36% Intake & Output: Intake & Output 04/06/16 04/07/16 04/08/16 04/09/16 11:59 11:59 11:59 11:59 Intake Total 1980 1860 1500 2080 Output Total 200 Balance 1780 1860 1500 2080 Weight 117.843 kg - Lab Result Diagrams: 04/08/16 05:40 04/08/16 05:40 Lab Results-Last 24 Hrs: Accuchecks Date 04/08/16 Date 04/08/16 Time 16:30 Time 11:30 Accucheck Value: 180 Accucheck Value: 270 Accucheck Value: 176 Micro Results-Entire Visit: Accuchecks Date 04/08/16 Date 04/08/16 Time 16:30 Time 11:30 Accucheck Value: 180 Accucheck Value: 270 Accucheck Value: 176 - Radiology Exams Ordered Rad Exams-Entire Visit: Radiology Procedures Category Date Time Status CHEST 1 VIEW (PORTABLE) Routine Exams 04/07/16 08:12 Completed ECHO W/2D AND DOPPLER [US] Routine Exams 04/07/16 08:09 Completed Impressions Echocardiogram Ultrasound 04/07/16 08:09 IMPRESSION: THIS IS A FAIRLY LIMITED STUDY WHICH PRECLUDES ADEQUATE ASSESSMENT OF THE INTRACARDIAC ANATOMY AND PHYSIOLOGY. - Procedures and Test Procedures and Tests throughout Hospitalization: Therapy Orders & Screens 04/04/16 22:18 Oxygen NASAL CANNULA 2 lpm Comment: Diagnosis: Shortness of Breath 04/04/16 22:19 Respiratory MDI Q12H Comment: Diagnosis: Shortness of Breath 04/04/16 22:20 neb [Respiratory Nebulizer] Q6H Comment: Diagnosis: Shortness of Breath 04/04/16 22:57 RT Screen per Nursing Assess ONCE Comment: Protocol Order Physician Instructions: Greater than 3 points order RT Admission Screen Reason For Exam: Triggered on Admission Diagnosis: Shortness of Breath Diagnosis: Shortness of Breath Pneumonia: Yes Home O2: No Asthma: No CHF: No Home CPAP/BIPAP: No Home Nebs/MDI: Yes Total Points: 8 04/09/16 07:59 Qualify for Home Oxygen TODAY Comment: Diagnosis: PNEUMONIA Discharge Exam General Appearance: no apparent distress, obese Neurologic Exam: alert, oriented x 3, cooperative Skin Exam: warm, dry Eye Exam: No scleral icterus Ears, Nose, Throat Exam: dry mucous membranes Neck Exam: normal inspection, non-tender, supple Respiratory Exam: normal breath sounds, lungs clear, other (obesity limits exam) Cardiovascular Exam: regular rate/rhythm, other (obesity limits exam) Gastrointestinal/Abdomen Exam: soft, normal bowel sounds, No tenderness Extremity Exam: normal inspection, No ming's sign, No pedal edema Back Exam: normal inspection Final Diagnosis/Problem List - Final Discharge Diagnosis/Problem (1) Pneumonia Status: Acute (2) Acute on chronic respiratory failure with hypoxemia Status: Acute (3) Acute exacerbation of chronic obstructive airways disease Status: Acute (4) Hypertension Status: Chronic (5) Anxiety Status: Chronic (6) Anemia Status: Acute (7) Morbid obesity Status: Chronic (8) Pleural effusion Status: Acute - Discharge Discharge Date: 04/09/16 Disposition: Home, Self-Care Condition: Fair Prescriptions: New Prednisone 10 mg [Deltasone 10 mg] 10 mg PO DAILY #27 tablet Potassium Chloride 10 Meq Tab* [Klor Con 10 MEQ] 20 meq PO DAILY #0 tab Furosemide 40 mg [Lasix 40 MG] 40 mg PO DAILY #0 tablet Azithromycin 250 mg [Zithromax 250 MG TABLET] 250 mg PO DAILY #2 tablet Continue Gabapentin 300 mg PO BID Escitalopram Oxalate 10 mg [Lexapro 10 MG] 10 mg PO DAILY Simethicone 80 mg [Mylicon 80MG] 80 mg PO QID Alprazolam 1 mg [Xanax 1 mg] 1 mg PO TID #90 tablet Lisinopril [Zestril] 40 mg PO DAILY Ferrous Sulfate 325 mg PO BID Amlodipine Besylate 10 mg [Norvasc 10 MG] 10 mg PO DAILY Budesonide/Formoterol Fumarate [Symbicort 160-4.5 Mcg Inhaler] 6 gm IH BID Instructions: Chronic Obstructive Pulmonary Disease, Pneumonia -- Adult, Oxygen Therapy -- Adult, Perform Oxygen Therapy via Cannula Follow up with: ANANT PONCE [ACTIVE STAFF] - 04/16/16 3:30 pm ([place] office ) NIKKI GIVENS [Primary Care Provider] - 04/17/16 2:30 pm Forms: Discharge Instructions, Patient Portal Information
[2016-04-09] MEDS: Lasix 40 MG PO SCH (10:10)
[2016-04-09] MEDS: ENOXAPARIN SODIUM SQ SCH (10:10)
[2016-04-09] MEDS: FEOSOL 325 MG PO SCH (10:10)
[2016-04-09] MEDS: Lexapro 10 MG PO SCH (10:10)
[2016-04-09] MEDS: NEURONTIN 300 MG PO SCH (10:10)
[2016-04-09] MEDS: Mylicon 80MG PO SCH ×3 (10:10→16:45)
[2016-04-09] MEDS: Klor Con 10 MEQ PO SCH (10:10)
[2016-04-09] MEDS: DELTASONE 20 MG PO SCH (10:10)
[2016-04-09] MEDS: Zestril 20 MG PO SCH (10:10)
[2016-04-09 13:12] VITALS: O2SAT 95
[2016-04-09 16:29] VITALS: BP 138/63; PULSE 75
[2016-04-09] MEDS: TYLENOL 325 MG PO PRN (17:11)
== END 2016-04-09 18:00 | disposition home or self-care (01) | DRG 193 ==
LOC: ED 18:03 → MED SURG 21:19 → OBSVTOIN 21:19
PROVIDERS: ADMIT Family Medicine; ATTEND Family Medicine
DX: J18.9 Pneumonia, unspecified organism (principal); J96.21 Acute and chronic respiratory failure with hypoxia; J44.1 Chronic obstructive pulmonary disease with (acute) exacerbation; J90 Pleural effusion, not elsewhere classified; I10 Essential (primary) hypertension; F41.9 Anxiety disorder, unspecified; D64.9 Anemia, unspecified; E66.01 Morbid (severe) obesity due to excess calories; G40.909 Epilepsy, unspecified, not intractable, without status epilepticus; M19.90 Unspecified osteoarthritis, unspecified site; Z79.899 Other long term (current) drug therapy; N28.9 Disorder of kidney and ureter, unspecified; F32.9 Major depressive disorder, single episode, unspecified; Z90.49 Acquired absence of other specified parts of digestive tract
CPT/HCPCS: 36000; 36415; 36600; 71010; 71260; 80048; 80053; 82375; 82803; 82962; 83036; 83605; 83880; 84484; 85025; 85027; 85379; 85610; 85730; 87040; 93005; 93306; 94620; 94640; 94760; 96360; 96365; 96374; 99284; A9270; J0456; J0696; J1650; J1940; J2930

== ENCOUNTER 2016-04-28 13:40 | Observation (INO) | payer OTHER ==
[2016-04-28] MEDS ORDERED: Zofran 4 MG/2 ML VIAL IV PRN (14:05)
[2016-04-28 14:26] LABS: BASOPHIL % 0.4 % (0.0-0.4); Granulocytes % 84.9 % (36.0-66.0); Lymphocytes % 8.5 % (24.0-44.0); Mean Cell Volume 101.3 fl (78-100); Monocytes % 4.2 % (0.0-12.0); Platelet Count 323 K/mm3 (150-450); Red Blood Count 3.85 M/mm3 (4.1-5.4); Red Cell Distribution Width 14.2 % (11.5-14.0); White Blood Count 13.8 K/mm3 (4.0-10.5)
[2016-04-28 14:27] LABS: Mean Corpuscular Hemoglobin 29.8 pg (26-32)
[2016-04-28] MEDS: solu-MEDROL 125 MG IV SCH ×2 (14:44→21:55)
--- NOTE | 2016-04-28 14:50 | XRAY ---
Indication: Short of breath. Weakness. Comparison: April 07, 2016. PA/lateral chest again demonstrates cardiomegaly and bibasilar infiltrates/atelectasis/effusion concerning for cardiac decompensation. Superimposed pneumonia not completely excluded. No new findings.
[2016-04-28 15:02] LABS: ALBUMIN 3.1 g/dL (3.4-5.0); ALKALINE PHOSPHATASE 114 U/L (46-116); ANION GAP 9.2 MEQ/L (5-15); BILIRUBIN,TOTAL 0.4 mg/dL (0.2-1.0); BLOOD UREA NITROGEN 7 mg/dL (9-20); CHLORIDE 98 mEq/L (98-107); Carbon Dioxide 37.9 mEq/L (21-32); Glucose 157 MG/DL (70-110); Potassium 3.4 mEq/L (3.5-5.1); SGOT/AST 10 U/L (15-37); SGPT/ALT 20 U/L (12-78); SODIUM 142 mEq/L (136-145); Total Protein 7.3 gm/dL (6.4-8.2)
[2016-04-28] MEDS: NovoLOG Insulin SQ PRN ×2 (17:01→21:56)
[2016-04-28] MEDS ORDERED: PROVENTIL 2.5 MG/3 ML NEB IH PRN (18:00)
[2016-04-28] MEDS ORDERED: PROVENTIL 2.5 MG/3 ML NEB IH ONE (18:10)
[2016-04-28] MEDS ORDERED: Mylicon 80MG PO PRN (18:57)
[2016-04-28] MEDS: Advair Hfa 230/21 Mcg COMMON CANISTER IH SCH (20:00)
[2016-04-28] MEDS: TYLENOL 325 MG PO PRN (20:02)
[2016-04-28] MEDS: XANAX 1 MG PO SCH (21:55)
[2016-04-28] MEDS: Vibramycin 100 MG PO SCH (21:55)
[2016-04-28] MEDS: FEOSOL 325 MG PO SCH (21:55)
[2016-04-28] MEDS: NEURONTIN 300 MG PO SCH (21:55)
[2016-04-28] MEDS ORDERED: DUONEB 0.5-3 MG/3 ml Neb IH ONE (22:03)
[2016-04-28] MEDS ORDERED: DUONEB 0.5-3 MG/3 ml Neb IH SCH (23:28)
[2016-04-29] MEDS: TYLENOL 325 MG PO PRN ×2 (04:40→10:11)
[2016-04-29] MEDS: solu-MEDROL 125 MG IV SCH (06:23)
[2016-04-29] MEDS: DUONEB 0.5-3 MG/3 ml Neb IH SCH ×3 (07:05→14:33)
[2016-04-29] MEDS: Advair Hfa 230/21 Mcg COMMON CANISTER IH SCH (07:05)
[2016-04-29] MEDS: NovoLOG Insulin SQ PRN ×2 (07:54→11:18)
--- NOTE | 2016-04-29 08:25 | PCM.HP ---
History of Present Illness - Chief Complaint Chief Complaint: ex COPD Date: 04/29/16 History of Present Illness: is a 60 year old female. who presented for routine follow up in the clinic yesterday but had started to have increased shortness of breath for the previous 4 days she was using her home oxygen but had to increase it due to dyspnea in the waiting room form 3L to 4L despite that her sats were still in the 80 to 88 range at rest on this and she was dyspneic on this. She states he was not having any swelling so had stopped her lasix as she was using it as needed. She has not had any chest pain or palpitations and the shortness of breath is constant and worsening she was on the last day of her steroid taper. NO fevers. Since arrival her symptoms have improved markedly she is feeling much less short of breath she had no chest pain. She was given lasix and this seems to have improved her as well as the iv steroids and antibiotic and the breathing treatments. her Sats are doing well on her home O2 and she is up and active without more then her baseline shortness of breath now. - Review of Systems Constitutional: No Symptoms Eyes: No Symptoms Ears, Nose, & Throat: No Symptoms Respiratory: Cough, Short Of Breath Cardiac: No Chest Pain, No Edema, No Syncope Abdominal/Gastrointestinal: No Abdominal Pain, No Nausea, No Vomiting, No Diarrhea Genitourinary Symptoms: No Dysuria Musculoskeletal: No Back Pain, No Neck Pain Skin: No Rash Neurological: No Dizziness, No Focal Weakness, No Sensory Changes Psychological: No Symptoms Endocrine: No Symptoms Hematologic/Lymphatic: No Symptoms Immunological/Allergic: No Symptoms Medications & Allergies Home Medications: Home Medication List Escitalopram Oxalate 10 mg [Lexapro 10 MG] 10 mg PO DAILY 03/01/15 [History Confirmed 04/28/16] Gabapentin 300 mg PO BID 03/01/15 [History Confirmed 04/28/16] Simethicone 80 mg [Mylicon 80MG] 80 mg PO QID PRN 03/01/15 [History Confirmed 04/28/16] Alprazolam 1 mg [Xanax 1 mg] 1 mg PO TID #90 tablet 03/02/15 [Rx Confirmed 04/28/16] Amlodipine Besylate 10 mg [Norvasc 10 MG] 10 mg PO DAILY 09/26/15 [History Confirmed 04/28/16] Ferrous Sulfate 325 mg PO BID 09/26/15 [History Confirmed 04/28/16] Lisinopril [Zestril] 40 mg PO DAILY 09/26/15 [History Confirmed 04/28/16] Budesonide/Formoterol Fumarate [Symbicort 160-4.5 Mcg Inhaler] 6 gm IH BID 04/05 [History Confirmed 04/28/16] Furosemide 40 mg [Lasix 40 MG] 40 mg PO DAILY #0 tablet 04/09/16 [Rx Confirmed 04/28/16] Potassium Chloride 10 Meq Tab* [Klor Con 10 MEQ] 20 meq PO DAILY #0 tab 04/09 [Rx Confirmed 04/28/16] Doxycycline Hyclate 100 mg [Vibramycin 100 MG] 100 mg PO BID #10 tab 04/29 [Rx] Prednisone 20 mg [Deltasone 20 mg] 20 mg PO DAILY #5 tablet 04/29/16 [Rx] Allergies/Adverse Reactions: Allergies Allergy/AdvReac Type Severity Reaction Status Date / Time No Known Drug Allergies Allergy Verified 12/20/15 09:43 - Past Medical History Past Medical History: Yes Neurological History: Seizures ENT History: No Pertinent History Cardiac History: Hypertension Respiratory History: COPD, Pneumonia Endocrine Medical History: No Pertinent History Musculoskelatal History: Osteoarthritis GI Medical History: Gallbladder Disease, Hernia, Other History: Renal Disease Pyscho-Social History: Anxiety, Depression Reproductive Disorders: No Pertinent History Comment: PERF BOWEL 06/2013. pt states she had a seizure because she ran out of xanax, pt states she does not remember it, [facility] Pt states that her kidneys leak protein. - Female History Are you now?: No - Past Surgical History Past Surgical History: Yes Neuro Surgical History: No Pertinent History Cardiac History: No Pertinent History Respiratory Surgery: No Pertinent History GI Surgical History: Cholecystectomy, Colon Resection Genitourinary Surgical Hx: No Pertinent History Musculskeletal Surgical Hx: No Pertinent History Female Surgical History: No Pertinent History - Social History Smoking Status: Former smoker How long have you smoked: 30 Exposure to second hand smoke: No Alcohol: None Drug Use: none - Physical Exam Vital Signs: Vital Signs - 24 hr Temp Pulse Resp BP Pulse Ox 04/29/16 07:26 97.9 F 81 22 130/60 95 04/29/16 07:19 81 20 94 L 04/29/16 04:00 97.3 F 84 26 H 140/65 93 L 04/29/16 00:00 20 04/28/16 23:25 98.2 F 79 20 136/62 95 04/28/16 20:00 24 04/28/16 19:48 98.2 F 95 H 24 144/72 94 L 04/28/16 18:14 91 H 24 83 L 04/28/16 15:44 98.3 F 101 H 22 178/82 93 L 04/28/16 14:58 101 H 22 93 L 04/28/16 14:34 98.3 F 96 H 18 178/82 91 L 04/28/16 14:07 98.3 F 96 H 178/82 04/28/16 13:52 98.3 F 96 H 18 178/82 91 L Oxygen-Last 24 hours O2 Percentage 4 Liters = 36% O2 Percentage 4 Liters = 36% O2 Percentage 4 Liters = 36% O2 Percentage 4 Liters = 36% O2 Percentage 4 Liters = 36% General Appearance: no apparent distress, alert, obese Neurologic Exam: alert, oriented x 3, cooperative, normal mood/affect, nml cerebellar function, nml station & gait, sensation nml, No motor deficits Eye Exam: PERRL/EOMI, eyes nml inspection Ears, Nose, Throat Exam: normal ENT inspection, TMs normal, pharynx normal, moist mucous membranes Neck Exam: normal inspection, non-tender, supple, full range of motion Respiratory Exam: wheezing, No respiratory distress Cardiovascular Exam: regular rate/rhythm, normal heart sounds, normal peripheral pulses Gastrointestinal/Abdomen Exam: soft, normal bowel sounds, No tenderness, No mass Back Exam: normal inspection, normal range of motion, No CVA tenderness, No vertebral tenderness Extremity Exam: normal inspection, normal range of motion, pelvis stable Skin Exam: normal color, warm, dry, No rash Lymphatic Exam: No adenopathy Results - Labs Lab/Micro Results: Accuchecks Date 04/29/16 Date 04/28/16 Date 04/28/16 Time 07:30 Time 22:00 Time 17:00 Accucheck Value: 382 Accucheck Value: 345 Accucheck Value: 278 Lab Results-Last 24 Hours 04/28/16 04/28/16 Range/Units 14:21 14:21 WBC 13.8 H (4.0-10.5) K/mm3 RBC 3.85 L (4.1-5.4) M/mm3 Hgb 11.5 L (12.0-16.0) gm/dl Hct 39.0 (35-47) % MCV 101.3 H (78-100) fl MCH 29.8 (26-32) pg MCHC 29.5 L (32-36) g/dl RDW 14.2 H (11.5-14.0) % Plt Count 323 (150-450) K/mm3 MPV 9.0 (6-9.5) fl Gran % 84.9 H (36.0-66.0) % Lymphocytes % 8.5 L (24.0-44.0) % Monocytes % 4.2 (0.0-12.0) % Eosinophils % 2.0 (0.00-5.0) % Basophils % 0.4 (0.0-0.4) % Basophils # 0.06 (0-0.4) Sodium 142 (136-145) mEq/L Potassium 3.4 L (3.5-5.1) mEq/L Chloride 98 (98-107) mEq/L Carbon Dioxide 37.9 H (21-32) mEq/L Anion Gap 9.2 (5-15) MEQ/L BUN 7 L (9-20) mg/dL Creatinine 0.88 (0.55-1.30) mg/dl Estimated GFR > 60 ML/MIN Glucose 157 H (70-110) MG/DL Calcium 8.7 (8.5-10.1) mg/dL Total Bilirubin 0.4 (0.2-1.0) mg/dL AST 10 L (15-37) U/L ALT 20 (12-78) U/L Alkaline Phosphatase 114 (46-116) U/L NT-Pro-B Natriuret Pep 630 H (0-125) pg/ml Serum Total Protein 7.3 (6.4-8.2) gm/dL Albumin 3.1 L (3.4-5.0) g/dL Accuchecks Date 04/29/16 Date 04/28/16 Date 04/28/16 Time 07:30 Time 22:00 Time 17:00 Accucheck Value: 382 Accucheck Value: 345 Accucheck Value: 278 - Radiology Impressions Radiology Exams & Impressions: Radiology Procedures Category Date Time Status CHEST 2 VIEWS (PA AND LAT) Stat Exams 04/28/16 14:05 Completed - Other Procedures and Tests Respiratory Therapy 04/28/16 18:00 Respiratory Nebulizer PRN 04/28/16 19:00 Respiratory MDI BID Respiratory Nebulizer QID 04/28/16 21:37 Oxygen NASAL CANNULA 4 lpm Assessment/Plan (1) Acute exacerbation of chronic obstructive airways disease Current Visit: Yes Status: Acute Assessment & Plan: she had rapid improvement it was likely combination of persistent symptoms from previous copd exacerbation as well as some mild increased fluid that was improved with the iv steroids and the doxycycline will continue the steroid taper out an additional 5 days and finish the doxycycline and f/u with Dr. Benitez as well. Code(s): J44.1 - CHRONIC OBSTRUCTIVE PULMONARY DISEASE W (ACUTE) EXACERBATION (2) Acute on chronic respiratory failure with hypoxemia Current Visit: Yes Status: Acute Code(s): J96.21 - ACUTE AND CHRONIC RESPIRATORY FAILURE WITH HYPOXIA (3) Chronic congestive heart failure with left ventricular diastolic dysfunction Current Visit: Yes Status: Chronic Assessment & Plan: she had echo 3 weeks ago that was limited quality due to her obesity but ef was estimated at 50% restart the lasix daily with the potassium Code(s): I50.32 - CHRONIC DIASTOLIC (CONGESTIVE) HEART FAILURE (4) Hypertension Current Visit: No Status: Chronic Code(s): I10 - ESSENTIAL (PRIMARY) HYPERTENSION (5) Anxiety Current Visit: No Status: Chronic Code(s): F41.9 - ANXIETY DISORDER, UNSPECIFIED (6) Anemia Current Visit: No Status: Acute Code(s): D64.9 - ANEMIA, UNSPECIFIED (7) Morbid obesity Current Visit: No Status: Chronic Code(s): E66.01 - MORBID (SEVERE) OBESITY DUE TO EXCESS CALORIES
[2016-04-29] MEDS ORDERED: Lasix 20 MG/2 ML IV ONE (08:30)
[2016-04-29] MEDS ORDERED: Klor Con 10 MEQ PO ONE (08:30)
[2016-04-29] MEDS: FEOSOL 325 MG PO SCH (08:58)
[2016-04-29] MEDS: Vibramycin 100 MG PO SCH (08:59)
[2016-04-29] MEDS: XANAX 1 MG PO SCH ×2 (08:59→13:48)
[2016-04-29] MEDS: NEURONTIN 300 MG PO SCH (09:00)
[2016-04-29] MEDS ORDERED: NON-FORMULARY ITEM (Amlodipine Besylate 10 Mg [Norvasc 10 Mg] 10 MG) PO SCH (10:00)
[2016-04-29] MEDS ORDERED: NORVASC 5 MG PO SCH (10:00)
[2016-04-29] MEDS ORDERED: PNEUMOVAX 23 IM ONE (10:00)
[2016-04-29] MEDS ORDERED: NON-FORMULARY ITEM (Lisinopril [Zestril] 40 MG) PO SCH (10:00)
[2016-04-29] MEDS ORDERED: Lexapro 10 MG PO SCH (10:00)
[2016-04-29] MEDS ORDERED: DELTASONE 20 MG PO SCH (10:00)
[2016-04-29] MEDS ORDERED: Zestril 20 MG PO SCH (10:00)
[2016-04-29] MEDS ORDERED: Klor Con 10 MEQ PO SCH (10:00)
[2016-04-29] MEDS ORDERED: ENOXAPARIN SODIUM SQ SCH (10:00)
[2016-04-29] MEDS ORDERED: Lasix 40 MG PO SCH (10:00)
[2016-04-29 12:22] VITALS: O2SAT 94
--- NOTE | 2016-04-29 15:06 | PCM.DCORD ---
- Discharge Discharge Date: 04/29/16 Disposition: Home, Self-Care Condition: Stable Prescriptions: New Doxycycline Hyclate 100 mg [Vibramycin 100 MG] 100 mg PO BID #10 tab Continue Gabapentin 300 mg PO BID Escitalopram Oxalate 10 mg [Lexapro 10 MG] 10 mg PO DAILY Simethicone 80 mg [Mylicon 80MG] 80 mg PO QID PRN PRN Reason: Stomach Upset Alprazolam 1 mg [Xanax 1 mg] 1 mg PO TID #90 tablet Lisinopril [Zestril] 40 mg PO DAILY Ferrous Sulfate 325 mg PO BID Amlodipine Besylate 10 mg [Norvasc 10 MG] 10 mg PO DAILY Budesonide/Formoterol Fumarate [Symbicort 160-4.5 Mcg Inhaler] 6 gm IH BID Potassium Chloride 10 Meq Tab* [Klor Con 10 MEQ] 20 meq PO DAILY #0 tab Furosemide 40 mg [Lasix 40 MG] 40 mg PO DAILY #0 tablet Prednisone 20 mg [Deltasone 20 mg] 20 mg PO DAILY #5 tablet Follow up with: NIKKI GIVENS [Primary Care Provider] - 1 Week Forms: Patient Portal Information
[2016-04-29 16:17] VITALS: BP 123/58; PULSE 77
[2016-04-29] MEDS ORDERED: DUONEB 0.5-3 MG/3 ml Neb IH SCH (23:00)
== END 2016-04-29 16:35 | disposition home or self-care (01) ==
LOC: MED SURG 13:42
PROVIDERS: ADMIT Family Medicine; ATTEND Family Medicine
DX: J44.1 Chronic obstructive pulmonary disease with (acute) exacerbation (principal); J96.21 Acute and chronic respiratory failure with hypoxia; I50.32 Chronic diastolic (congestive) heart failure; I10 Essential (primary) hypertension; F41.8 Other specified anxiety disorders; D64.9 Anemia, unspecified; E66.01 Morbid (severe) obesity due to excess calories; M19.90 Unspecified osteoarthritis, unspecified site; N28.9 Disorder of kidney and ureter, unspecified; Z23 Encounter for immunization; Z79.899 Other long term (current) drug therapy
CPT/HCPCS: 36415; 71020; 80053; 82962; 83880; 85025; 90732; 93005; 94640; 94760; A9270; G0378; J1650; J1940; J2930

== ENCOUNTER 2016-05-13 19:14 | Emergency (ER) | payer OTHER ==
--- NOTE | 2016-05-13 20:49 | ERPHSYRPT ---
- History of Present Illness Time Seen by Provider: 05/13/16 20:37 Source: patient Exam Limitations: no limitations Physician History: TWO DAYS AGO PT INSERTED TOILET PAPER IN BOTH EARS AND IS HERE FOR REMOVAL; DENIES FEVER, CHILLS, VOMITING, CHEST PAIN, SORE THROAT. Allergies/Adverse Reactions: No Known Drug Allergies Allergy (Verified 05/13/16 20:44) Home Medications: Escitalopram Oxalate 10 mg [Lexapro 10 MG] 10 mg PO DAILY 03/01/15 [History] Gabapentin 300 mg PO BID 03/01/15 [History] Simethicone 80 mg [Mylicon 80MG] 80 mg PO QID PRN 03/01/15 [History] Amlodipine Besylate 10 mg [Norvasc 10 MG] 10 mg PO DAILY 09/26/15 [History] Ferrous Sulfate 325 mg PO BID 09/26/15 [History] Lisinopril [Zestril] 40 mg PO DAILY 09/26/15 [History] Budesonide/Formoterol Fumarate [Symbicort 160-4.5 Mcg Inhaler] 6 gm IH BID 04/05 [History] Hx Tetanus, Diphtheria Vaccination/Date Given: Yes Hx Influenza Vaccination/Date Given: Yes Hx Pneumococcal Vaccination/Date Given: No - Review of Systems Constitutional: No Fever Ears, Nose, & Throat: Other (TP IN BOTH EARS), No Throat Pain Respiratory: Dyspnea (CHRONIC) Cardiac: No Chest Pain Abdominal/Gastrointestinal: No Abdominal Pain, No Vomiting Endocrine: No Excessive Sweating All Other Systems: Reviewed and Negative - Past Medical History Pertinent Past Medical History: Yes Neurological History: Seizures ENT History: No Pertinent History Cardiac History: Hypertension Respiratory History: COPD, Pneumonia Endocrine Medical History: No Pertinent History Musculoskeletal History: Osteoarthritis GI Medical History: Gallbladder Disease, Hernia, Other History: Renal Disease Psycho-Social History: Anxiety, Depression Female Reproductive Disorders: No Pertinent History Other Medical History: PERF BOWEL 06/2013. pt states she had a seizure because she ran out of xanax, pt states she does not remember it, [facility] Pt states that her kidneys leak protein. - Past Surgical History Past Surgical History: Yes Neuro Surgical History: No Pertinent History Cardiac: No Pertinent History Respiratory: No Pertinent History Gastrointestinal: Cholecystectomy, Colon Resection Genitourinary: No Pertinent History Musculoskeletal: No Pertinent History Female Surgical History: No Pertinent History - Social History Smoking Status: Former smoker How long have you smoked: 30 Exposure to second hand smoke: No Drug Use: none Patient Lives Alone: No - Female History Hx Now: No - Nursing Vital Signs Nursing Vital Signs: Initial Vital Signs Temperature 98.0 F Temperature Source Oral Pulse Rate 94 Respiratory Rate 22 Blood Pressure [Right Arm] 140/73 Pain Intensity 4 - Physical Exam General Appearance: alert Eye Exam: bilateral eye: PERRL, EOMI Ear Exam: right ear: other (SMALL AMOUNT OF TOILET PAPER IN RIGHT EXTERNAL AUDITORY CANAL AND SOME CERUMEN ALSO PRESENT.), bilateral ear: TM normal Nasal Exam: normal inspection Throat Exam: pharynx normal, moist mucus membranes Neck Exam: normal inspection Cardiovascular/Respiratory Exam: normal breath sounds, heart sounds normal Neurologic Exam: alert, cooperative Skin Exam: warm, dry SpO2 Interpretation: borderline oxygenation SpO2: 91 Oxygen Delivery: Nasal Cannula - Course Nursing assessment & vital signs reviewed: Yes Ordered Tests: Active Orders 24 hr Category Date Time Status Ear Irrigation STAT Care 05/13/16 20:43 Active - Progress Progress Note: 05/13/16 21:39 F.B.(TOILET PAPER) REMOVED FROM RIGHT EAR BY IRRIGATION BY STAFF(MARI). I EXAMINED RIGHT TM POST REMOVAL AND IT IS NORMAL. - Departure Time of Disposition: 21:40 Departure Disposition: Home Clinical Impression: F.B.(TOILET PAPER) REMOVAL FROM RIGHT EAR Condition: Fair Critical Care Time: No Referrals: NIKKI GIVENS [Primary Care Provider] - Instructions: Removal of Foreign Body From Ear Additional Instructions: FOLLOW UP WITH PRIVATE DOCTOR TOMORROW.
[2016-05-13 21:56] VITALS: BP 147/70; PULSE 87; O2SAT 96
== END 2016-05-13 21:56 | disposition home or self-care (01) ==
LOC: ED 19:14
DX: T16.1XXA Foreign body in right ear, initial encounter (principal)
CPT/HCPCS: 69210; 99283

== ENCOUNTER 2017-10-03 16:49 | Inpatient (IN) | payer OTHER ==
[2017-10-03] MEDS ORDERED: DUONEB 0.5-3 MG/3 ml Neb IH ONE ×2 (16:57→17:06)
[2017-10-03] MEDS ORDERED: solu-MEDROL 125 MG IV ONE (17:06)
--- NOTE | 2017-10-03 17:07 | ERPHSYRPT ---
- History of Present Illness Time Seen by Provider: 10/03/17 17:03 Source: patient, family Exam Limitations: no limitations Patient Subjective Stated Complaint: Pt states "I have been short of breath for a week and today I cannot keep my oxygen up." Triage Nursing Assessment: Pt alert and oriented X 3, skin pwd. PT obese, with noted abdominal hernia. PT tachypneic. PT has raspy voice, speaks in two to three word sentences. Physician History: The patient is a 62-year-old obese female with her daughter complaining of increasing shortness of breath for one week. She has COPD and uses 4 L supplemental home oxygen. When she arrives to the ER her O2 saturation is 67%. Her past medical history significant for COPD, hypertension, and congestive heart failure. Timing/Duration: week(s) (1), gradual onset, worse Activities at Onset: activity Severity of Dyspnea-Max: severe Severity of Dyspnea-Current: severe Possible Cause: frequent episodes Modifying Factors: Improves With: activity, albuterol inhaler Associated Symptoms: cough, wheezing Allergies/Adverse Reactions: No Known Drug Allergies Allergy (Verified 05/13/16 20:44) Home Medications: Escitalopram Oxalate 10 mg [Lexapro 10 MG] 10 mg PO DAILY 03/01/15 [History] Gabapentin 300 mg PO BID 03/01/15 [History] Simethicone 80 mg [Mylicon 80MG] 80 mg PO QID PRN 03/01/15 [History] Amlodipine Besylate 10 mg [Norvasc 10 MG] 10 mg PO DAILY 09/26/15 [History] Ferrous Sulfate 325 mg PO BID 09/26/15 [History] Lisinopril [Zestril] 40 mg PO DAILY 09/26/15 [History] Budesonide/Formoterol Fumarate [Symbicort 160-4.5 Mcg Inhaler] 6 gm IH BID 04/05 [History] Hx Tetanus, Diphtheria Vaccination/Date Given: Yes Hx Influenza Vaccination/Date Given: Yes Hx Pneumococcal Vaccination/Date Given: No Immunizations Up to Date: Yes - Review of Systems Constitutional: No Fever, No Chills Eyes: No Symptoms Ears, Nose, & Throat: No Symptoms Respiratory: Cough, Dyspnea, Dyspnea on Exertion (AGARWAL) Cardiac: No Chest Pain, No Edema, No Syncope Abdominal/Gastrointestinal: No Abdominal Pain, No Nausea, No Vomiting, No Diarrhea Genitourinary Symptoms: No Dysuria Musculoskeletal: No Back Pain, No Neck Pain Skin: No Rash Neurological: No Dizziness, No Focal Weakness, No Sensory Changes Psychological: No Symptoms Endocrine: No Symptoms Hematologic/Lymphatic: No Symptoms Immunological/Allergic: No Symptoms All Other Systems: Reviewed and Negative - Past Medical History Pertinent Past Medical History: Yes Neurological History: Seizures ENT History: No Pertinent History Cardiac History: Hypertension Respiratory History: COPD, Pneumonia Endocrine Medical History: No Pertinent History Musculoskeletal History: Osteoarthritis GI Medical History: Gallbladder Disease, Hernia, Other History: Renal Disease Psycho-Social History: Anxiety, Depression Female Reproductive Disorders: No Pertinent History Other Medical History: PERF BOWEL 06/2013. pt states she had a seizure because she ran out of xanax, pt states she does not remember it, [facility]. Pt states that her kidneys leak protein. - Past Surgical History Past Surgical History: Yes Neuro Surgical History: No Pertinent History Cardiac: No Pertinent History Respiratory: No Pertinent History Gastrointestinal: Cholecystectomy, Colon Resection Genitourinary: No Pertinent History Musculoskeletal: No Pertinent History Female Surgical History: No Pertinent History - Social History Smoking Status: Former smoker How long have you smoked: 30 Exposure to second hand smoke: Yes Drug Use: none Patient Lives Alone: Yes - Female History Hx Now: No - Nursing Vital Signs Nursing Vital Signs: Initial Vital Signs Temperature 98.8 F 10/03/17 16:56 Pulse Rate 86 10/03/17 16:56 Respiratory Rate 26 H 10/03/17 16:56 Blood Pressure 137/66 10/03/17 16:56 O2 Sat by Pulse Oximetry 67 L 10/03/17 16:56 Pain Scale Pain Intensity 8 - Physical Exam General Appearance: moderate distress, obese Eye Exam: PERRL/EOMI Ears, Nose, Throat Exam: hearing grossly normal Neck Exam: normal inspection, supple Respiratory Exam: wheezing Cardiovascular/Chest Exam: normal heart sounds, regular rate/rhythm Abdominal/Gastrointestinal Exam: soft, No tenderness, No distention, No mass Rectal Exam: not done Extremity Exam: non-tender, normal range of motion, normal inspection, no calf tenderness, no pedal edema Neurologic Exam: alert, oriented x 3, cooperative, audit associate II-XII nml as tested, sensation nml, No motor deficits Skin Exam: normal color, warm, No dry SpO2 Interpretation: hypoxic, O2 applied SpO2: 97 Oxygen Delivery: Non-rebreather - Course EKG Interpreted by Me: RATE, Sinus Rhythm, NORMAL AXIS, NORMAL INTERVALS, NORMAL QRS, NORMAL ST-T - Radiology Exams Chest X-ray Interpretation: Interpreted by me, Infiltrates (diffuse bilateral infiltrates. comp 2v cxr 04/28/16.) Ordered Tests: Active Orders 24 hr Category Date Time Status Wool Sacker STAT Care 10/03/17 17:21 Active EKG-ER Only STAT Care 10/03/17 17:06 Active IV Insertion STAT Care 10/03/17 17:06 Active Oxygen-ED Only NON-REBREATHER 100% Care 10/03/17 17:06 Active CHEST 2 VIEWS (PA AND LAT) Routine Exams 10/03/17 18:51 Taken ARTERIAL BLOOD GASES Stat Lab 10/03/17 17:18 Completed CBC W DIFF Stat Lab 10/03/17 17:15 Completed CMP Stat Lab 10/03/17 17:15 Completed D-DIMER QUANTITATION Stat Lab 10/03/17 17:15 Completed Lactic Acid Stat Lab 10/03/17 17:18 Completed Manual Differential NC Stat Lab 10/03/17 17:15 Completed NT PRO BNP Stat Lab 10/03/17 17:15 Completed TROPONIN Q3H Lab 10/03/17 17:15 Completed TROPONIN Q3H Lab 10/03/17 20:15 Ordered TROPONIN Q3H Lab 10/03/17 23:15 Ordered TROPONIN Q3H Lab 10/04/17 02:15 Ordered TROPONIN Q3H Lab 10/04/17 05:15 Ordered Respiratory Nebulizer STAT RT 10/03/17 17:08 Completed Medication Summary Discontinued Medications Generic Name Dose Route Start Last Admin Trade Name Freq PRN Reason Stop Dose Admin Albuterol/Ipratropium Confirm 10/03/17 16:57 Duoneb 0.5-3 Mg/3 Ml Neb Administered 10/03/17 16:58 Dose 3 ml IH .STK-MED ONE Albuterol/Ipratropium 3 ml 10/03/17 17:06 10/03/17 17:05 Duoneb 0.5-3 Mg/3 Ml Neb IH 10/03/17 17:07 3 ml STAT ONE Administration Methylprednisolone Sodium Succinate 125 mg 10/03/17 17:06 10/03/17 17:19 Solu-Medrol 125 Mg IV 10/03/17 17:07 125 mg STAT ONE Administration Methylprednisolone Sodium Succinate Confirm 10/03/17 17:18 Solu-Medrol 125 Mg Administered 10/03/17 17:19 Dose 125 mg .ROUTE .STK-MED ONE Lab/Rad Data: Laboratory Result Diagrams 10/03/17 17:15 10/03/17 17:15 Laboratory Results 10/03/17 10/03/17 10/03/17 Range/Units 17:18 17:15 17:15 WBC (4.0-10.5) K/mm3 RBC (4.1-5.4) M/mm3 Hgb (12.0-16.0) gm/dl Hct (35-47) % MCV (78-100) fl MCH (26-32) pg MCHC (32-36) g/dl RDW (11.5-14.0) % Plt Count (150-450) K/mm3 MPV (6-9.5) fl Absolute Granulocytes (1.4-6.9) D-Dimer 845 H* (215-500) ng/mL Puncture Site LEFT RADIAL pCO2 67 H* (35-45) mmHg pO2 73 L (75-100) mmHg Base Excess 8.7 H (-2.0-2.0) O2 Saturation 93.8 L (94-100) g/dF ABG pH 7.34 L (7.35-7.45) ABG HCO3 36.1 H* (22-28) ABG O2 Sat (Measured) 96.9 (95-100) % Marco Test YES A-a Gradient 271 a/A Ratio 0.21 Hemoglobin 9.3 Carboxyhemoglobin 2.2 (0.0-6.9) % THgb Methemoglobin 1.0 L (1.4-1.5) % Temperature 37.0 C POC O2 Flow Rate 60 % Sodium (137-145) mmol/L Potassium 5.2 H (3.5-5.1) mmol/L Chloride (98-107) mmol/L Carbon Dioxide (22-30) mmol/L Anion Gap (5-15) MEQ/L BUN (7-17) mg/dL Creatinine (0.52-1.04) mg/dL Estimated GFR ML/MIN Glucose (74-106) mg/dL Lactic Acid 1.8 (0.4-2.0) Calcium (8.4-10.2) mg/dL Total Bilirubin (0.2-1.3) mg/dL AST (14-36) U/L ALT (0-35) U/L Alkaline Phosphatase (38-126) U/L Troponin I < 0.012 (0.000-0.034) ng/mL NT-Pro-B Natriuret Pep (0-900) pg/mL Serum Total Protein (6.3-8.2) g/dL Albumin (3.5-5.0) g/dL 10/03/17 10/03/17 Range/Units 17:15 17:15 WBC 19.2 H (4.0-10.5) K/mm3 RBC 3.10 L (4.1-5.4) M/mm3 Hgb 9.2 L (12.0-16.0) gm/dl Hct 30.6 L (35-47) % MCV 98.7 (78-100) fl MCH 29.6 (26-32) pg MCHC 30.1 L (32-36) g/dl RDW 14.9 H (11.5-14.0) % Plt Count 502 H (150-450) K/mm3 MPV 8.8 (6-9.5) fl Absolute Granulocytes 17.79 H (1.4-6.9) D-Dimer (215-500) ng/mL Puncture Site pCO2 (35-45) mmHg pO2 (75-100) mmHg Base Excess (-2.0-2.0) O2 Saturation (94-100) g/dF ABG pH (7.35-7.45) ABG HCO3 (22-28) ABG O2 Sat (Measured) (95-100) % Marco Test A-a Gradient a/A Ratio Hemoglobin Carboxyhemoglobin (0.0-6.9) % THgb Methemoglobin (1.4-1.5) % Temperature C POC O2 Flow Rate % Sodium 128 L (137-145) mmol/L Potassium 5.6 H (3.5-5.1) mmol/L Chloride 86 L (98-107) mmol/L Carbon Dioxide 33 H (22-30) mmol/L Anion Gap 13.7 (5-15) MEQ/L BUN 10 (7-17) mg/dL Creatinine 0.91 (0.52-1.04) mg/dL Estimated GFR > 60.0 ML/MIN Glucose 138 H (74-106) mg/dL Lactic Acid (0.4-2.0) Calcium 9.0 (8.4-10.2) mg/dL Total Bilirubin 0.30 (0.2-1.3) mg/dL AST 15 (14-36) U/L ALT 15 (0-35) U/L Alkaline Phosphatase 152 H (38-126) U/L Troponin I (0.000-0.034) ng/mL NT-Pro-B Natriuret Pep 1020 H (0-900) pg/mL Serum Total Protein 7.5 (6.3-8.2) g/dL Albumin 4.0 (3.5-5.0) g/dL - Progress Progress: improved Air Movement: fair Blood Culture(s) Obtained: Yes Antibiotics given: Yes Discussed with : Delon Will see patient in: hospital (full admit) Counseled pt/family regarding: lab results, diagnosis, rad results - Departure Time of Disposition: 19:40 Departure Disposition: In-patient Admission (ICU per Dr Jernigan) Clinical Impression: Dyspnea and respiratory abnormalities, Hyponatremia, Hyperkalemia Condition: Stable Critical Care Time: No Referrals: NIKKI GIVENS [Primary Care Provider] -
[2017-10-03] MEDS ORDERED: solu-MEDROL 125 MG ONE (17:18)
[2017-10-03 17:27] LABS: A-aADO2 271; ABG HEMOGLOBIN 9.3; ABG POTASSIUM 5.2 (3.5-5.1); ARTERIAL BLD GAS O2 SATURATION 96.9 % (95-100); ARTERIAL BLOOD GAS BASE EXCESS 8.7 (-2.0-2.0); ARTERIAL BLOOD GAS FIO2 60 %; ARTERIAL BLOOD GAS PCO2 67 mmHg (35-45); ARTERIAL BLOOD GAS PO2 73 mmHg (75-100); ARTERIAL BLOOD GAS pH 7.34 (7.35-7.45); CARBOXYHEMOGLOBIN 2.2 % THgb (0.0-6.9); HCO3- 36.1 (22-28); HGB O2 SAT 93.8 g/dF (94-100); Lactic Acid 1.8 (0.4-2.0); paO2 pAO1 0.21
[2017-10-03 17:28] LABS: ABG SITE LEFT RADIAL; ALLEN TEST OK? YES
[2017-10-03 17:28] LABS: Granulocyte Absolute (ANC) 17.79 (1.4-6.9); Hematocrit 30.6 % (35-47); Hemoglobin 9.2 gm/dl (12.0-16.0); Mean Cell Volume 98.7 fl (78-100); Mean Corpuscular Hemoglobin 29.6 pg (26-32); Mean Corpuscular Hgb Concent. 30.1 g/dl (32-36); Mean Platelet Volume 8.8 fl (6-9.5); Platelet Count 502 K/mm3 (150-450); Red Cell Distribution Width 14.9 % (11.5-14.0); White Blood Count 19.2 K/mm3 (4.0-10.5)
[2017-10-03 19:00] LABS: ALKALINE PHOSPHATASE 152 U/L (38-126); ANION GAP 13.7 MEQ/L (5-15); BLOOD UREA NITROGEN 10 mg/dL (7-17); CHLORIDE 86 mmol/L (98-107); Carbon Dioxide 33 mmol/L (22-30); Creatinine 1 0.91 mg/dL (0.52-1.04); Glucose 138 mg/dL (74-106); Potassium 5.6 mmol/L (3.5-5.1); SGOT/AST 15 U/L (14-36); SGPT/ALT 15 U/L (0-35); SODIUM 128 mmol/L (137-145); Total Protein 7.5 g/dL (6.3-8.2)
[2017-10-03 19:09] LABS: NT PRO BNP 1020 pg/mL (0-900)
[2017-10-03] MEDS ORDERED: ROCEPHIN 1 Gm-D5w 50 ml Bag** 1 G/50 ML IVPB IV STA (19:39)
[2017-10-03] MEDS ORDERED: ROCEPHIN 1 Gm-D5w 50 ml Bag** 1 G/50 ML IVPB IV ONE (19:48)
[2017-10-03] MEDS: Advair Hfa 230/21 Mcg COMMON CANISTER IH SCH (20:45)
[2017-10-03] MEDS ORDERED: TYLENOL 325 MG PO PRN (21:00)
[2017-10-03] MEDS ORDERED: Zofran 4 MG/2 ML VIAL IV PRN (21:00)
[2017-10-03] MEDS ORDERED: DUONEB 0.5-3 MG/3 ml Neb IH PRN (21:00)
[2017-10-03] MEDS ORDERED: PROVENTIL 2.5 MG/3 ML NEB IH PRN (21:00)
[2017-10-03] MEDS: Sodium Chloride 0.9% 1000 ML 1,000 ML IV SCH (21:06)
[2017-10-03] MEDS ORDERED: Zithromax 500 MG/ 250 ML NaCl Premix 500 MG/250 ML IVPB IV ONE (21:28)
[2017-10-03] MEDS ORDERED: Seroquel 25 MG ONE (22:52)
[2017-10-03] MEDS: XANAX 1 MG PO SCH ×2 (22:55→23:02)
[2017-10-04] MEDS ORDERED: ENOXAPARIN SODIUM SQ SCH ×2 (01:00→22:00)
[2017-10-04 06:00] LABS: A-aADO2 199; ABG HEMOGLOBIN 8.7; ABG POTASSIUM 5.9 (3.5-5.1); ARTERIAL BLD GAS O2 SATURATION 93.4 % (95-100); ARTERIAL BLOOD GAS BASE EXCESS 7.4 (-2.0-2.0); ARTERIAL BLOOD GAS FIO2 50 %; ARTERIAL BLOOD GAS PO2 63 mmHg (75-100); ARTERIAL BLOOD GAS pH 7.28 (7.35-7.45); CARBOXYHEMOGLOBIN 1.8 % THgb (0.0-6.9); HCO3- 35.7 (22-28); HGB O2 SAT 90.7 g/dF (94-100); Methhemoglobin 1.1 % (1.4-1.5); paO2 pAO1 0.24
[2017-10-04 06:01] LABS: ABG SITE RIGHT BRACHIAL; ARTERIAL BLOOD GAS PCO2 76 mmHg (35-45)
[2017-10-04 06:22] LABS: ALBUMIN 3.5 g/dL (3.5-5.0); ALKALINE PHOSPHATASE 120 U/L (38-126); ANION GAP 10.6 MEQ/L (5-15); BLOOD UREA NITROGEN 13 mg/dL (7-17); CHLORIDE 88 mmol/L (98-107); Calcium 8.2 mg/dL (8.4-10.2); Carbon Dioxide 32 mmol/L (22-30); Creatinine 1 0.91 mg/dL (0.52-1.04); Glucose 221 mg/dL (74-106); Potassium 5.8 mmol/L (3.5-5.1); SGOT/AST 9 U/L (14-36); SGPT/ALT 13 U/L (0-35); SODIUM 126 mmol/L (137-145); Total Protein 6.7 g/dL (6.3-8.2)
[2017-10-04 06:28] LABS: A-aADO2 172; ABG HEMOGLOBIN 8.9; ARTERIAL BLD GAS O2 SATURATION 96.3 % (95-100); ARTERIAL BLOOD GAS BASE EXCESS 7.7 (-2.0-2.0); ARTERIAL BLOOD GAS FIO2 50 %; ARTERIAL BLOOD GAS PCO2 86 mmHg (35-45); ARTERIAL BLOOD GAS PO2 77 mmHg (75-100); ARTERIAL BLOOD GAS VENT MODE BiPAP; ARTERIAL BLOOD GAS pH 7.24 (7.35-7.45); CARBOXYHEMOGLOBIN 2.1 % THgb (0.0-6.9); HCO3- 36.9 (22-28); HGB O2 SAT 93.4 g/dF (94-100); paO2 pAO1 0.31
[2017-10-04 06:41] LABS: ABG SITE LEFT RADIAL
[2017-10-04] MEDS: Advair Hfa 230/21 Mcg COMMON CANISTER IH SCH (07:30)
[2017-10-04 08:06] VITALS: PULSE 58
--- NOTE | 2017-10-04 08:07 | PCM.SSS ---
History of Present Illness - Chief Complaint Chief Complaint: Respiratory abnormalities, hyponatremia, high K+ History of Present Illness: is a 62 year old female who presented to the ER last night with shortness of breath, cough and low oxygen saturation. Most of the history is taken from nursing report and ER records due to her clinical condition. She had an oxygen saturation of 67% when she arrived on 4L oxygen, workup has revealed bilateral diffuse infiltrates. 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 - Review of Systems Constitutional: No Fever, No Chills Respiratory: Cough, Short Of Breath Cardiac: No Symptoms Abdominal/Gastrointestinal: No Abdominal Pain, No Nausea, No Vomiting, No Diarrhea Musculoskeletal: No Back Pain, No Neck Pain Skin: No Rash Neurological: No Dizziness, No Focal Weakness, No Sensory Changes All Other Systems: Unable due to condition Medications & Allergies Home Medications: Home Medication List Escitalopram Oxalate 10 mg [Lexapro 10 MG] 20 mg PO DAILY 03/01/15 [History Confirmed 10/03/17] Gabapentin 300 mg PO BID 03/01/15 [History Confirmed 10/03/17] Simethicone 80 mg [Mylicon 80MG] 80 mg PO QID PRN 03/01/15 [History Confirmed 10/03/17] Alprazolam 1 mg [Xanax 1 mg] 1 mg PO TID #90 tablet 03/02/15 [Rx Confirmed 10/03/17] Amlodipine Besylate 10 mg [Norvasc 10 MG] 10 mg PO DAILY 09/26/15 [History Confirmed 10/03/17] Ferrous Sulfate 325 mg PO BID 09/26/15 [History Confirmed 10/03/17] Lisinopril [Zestril] 40 mg PO DAILY 09/26/15 [History Confirmed 10/03/17] Budesonide/Formoterol Fumarate [Symbicort 160-4.5 Mcg Inhaler] 6 gm IH BID 04/05 [History Confirmed 10/03/17] Hydrochlorothiazide 25 mg [hydroDIURIL 25 MG] 25 mg PO DAILY 10/03/17 [ History Confirmed 10/03/17] Metformin HCl 500 mg [Glucophage 500 MG] 500 mg PO BID 10/03/17 [History Confirmed 10/03/17] Potassium Chloride 10 Meq Tab* [Klor Con 10 MEQ] 20 meq PO BID 10/03/17 [ History Confirmed 10/03/17] Quetiapine Fumarate 25 mg [Seroquel 25 MG] 25 mg PO HS 10/03/17 [History Confirmed 10/03/17] Ranitidine HCl [Zantac] 300 mg PO DAILY 10/03/17 [History Confirmed 10/03/17] Allergies/Adverse Reactions: Allergies Allergy/AdvReac Type Severity Reaction Status Date / Time No Known Drug Allergies Allergy Verified 05/13/16 20:44 - Past Medical History Past Medical History: Yes Neurological History: Seizures ENT History: No Pertinent History Cardiac History: Hypertension Respiratory History: COPD, Pneumonia Endocrine Medical History: No Pertinent History Musculoskelatal History: Osteoarthritis GI Medical History: Gallbladder Disease, Hernia, Other History: Renal Disease Pyscho-Social History: Anxiety, Depression Reproductive Disorders: No Pertinent History Comment: PERF BOWEL 06/2013. pt states she had a seizure because she ran out of xanax, pt states she does not remember it, [facility] Pt states that her kidneys leak protein. - Female History Are you now?: No - Past Surgical History Past Surgical History: Yes Neuro Surgical History: No Pertinent History Cardiac History: No Pertinent History Respiratory Surgery: No Pertinent History GI Surgical History: Cholecystectomy, Colon Resection Genitourinary Surgical Hx: No Pertinent History Musculskeletal Surgical Hx: No Pertinent History Female Surgical History: No Pertinent History - Social History Smoking Status: Former smoker How long have you smoked: 35 Exposure to second hand smoke: No Alcohol: None Drug Use: none - Physical Exam Vital Signs: Vital Signs - 24 hr Temp Pulse Resp BP Pulse Ox 10/04/17 07:37 97.8 F 62 20 106/56 95 10/04/17 04:00 67 17 114/58 91 L 10/04/17 00:01 78 10/04/17 00:00 98.5 F 78 20 128/56 94 L 10/03/17 23:55 93 L 10/03/17 22:00 99.0 F 76 19 127/63 96 10/03/17 20:45 81 19 97 10/03/17 19:56 80 20 152/75 95 10/03/17 19:47 97 10/03/17 18:52 86 20 128/66 94 L 10/03/17 17:52 84 24 125/68 95 10/03/17 17:43 98.6 F 84 22 136/86 89 L 10/03/17 17:08 82 24 97 10/03/17 16:56 98.8 F 86 26 H 137/66 97 Oxygen-Last 24 hours O2 Percentage 50% O2 Percentage 80% O2 Percentage 50% O2 Percentage 50% O2 Percentage 50% O2 Percentage 100% O2 Percentage 4 Liters = 36% Oxygen Flowrate (L/min)-RT 10 Oxygen Flowrate (L/min)-RT 8 General Appearance: obese, other (sleepy but arousable) Neurologic Exam: cooperative, No alert Eye Exam: PERRL/EOMI Respiratory Exam: crackles/rales, rhonchi Cardiovascular Exam: regular rate/rhythm, normal heart sounds, normal peripheral pulses Gastrointestinal/Abdomen Exam: soft, normal bowel sounds, No tenderness, No mass Extremity Exam: normal inspection, normal range of motion, pelvis stable Skin Exam: normal color, warm, dry, No rash Results - Labs Lab/Micro Results: Lab Results-Last 24 Hours 10/03/17 10/03/17 10/03/17 Range/Units 17:15 17:15 17:15 WBC 19.2 H (4.0-10.5) K/mm3 RBC 3.10 L (4.1-5.4) M/mm3 Hgb 9.2 L (12.0-16.0) gm/dl Hct 30.6 L (35-47) % MCV 98.7 (78-100) fl MCH 29.6 (26-32) pg MCHC 30.1 L (32-36) g/dl RDW 14.9 H (11.5-14.0) % Plt Count 502 H (150-450) K/mm3 MPV 8.8 (6-9.5) fl Absolute Granulocytes 17.79 H (1.4-6.9) D-Dimer 845 H* (215-500) ng/mL Puncture Site pCO2 (35-45) mmHg pO2 (75-100) mmHg Base Excess (-2.0-2.0) O2 Saturation (94-100) g/dF ABG pH (7.35-7.45) ABG HCO3 (22-28) ABG O2 Sat (Measured) (95-100) % Marco Test A-a Gradient a/A Ratio Hemoglobin Carboxyhemoglobin (0.0-6.9) % THgb Methemoglobin (1.4-1.5) % Temperature C POC O2 Flow Rate % Vent Mode Inspiratory BiPAP Expiratory BiPAP Sodium 128 L (137-145) mmol/L Potassium 5.6 H (3.5-5.1) mmol/L Chloride 86 L (98-107) mmol/L Carbon Dioxide 33 H (22-30) mmol/L Anion Gap 13.7 (5-15) MEQ/L BUN 10 (7-17) mg/dL Creatinine 0.91 (0.52-1.04) mg/dL Estimated GFR > 60.0 ML/MIN Glucose 138 H (74-106) mg/dL Lactic Acid (0.4-2.0) Calcium 9.0 (8.4-10.2) mg/dL Total Bilirubin 0.30 (0.2-1.3) mg/dL AST 15 (14-36) U/L ALT 15 (0-35) U/L Alkaline Phosphatase 152 H (38-126) U/L Troponin I (0.000-0.034) ng/mL NT-Pro-B Natriuret Pep 1020 H (0-900) pg/mL Serum Total Protein 7.5 (6.3-8.2) g/dL Albumin 4.0 (3.5-5.0) g/dL 10/03/17 10/03/17 10/03/17 Range/Units 17:15 17:18 20:15 WBC (4.0-10.5) K/mm3 RBC (4.1-5.4) M/mm3 Hgb (12.0-16.0) gm/dl Hct (35-47) % MCV (78-100) fl MCH (26-32) pg MCHC (32-36) g/dl RDW (11.5-14.0) % Plt Count (150-450) K/mm3 MPV (6-9.5) fl Absolute Granulocytes (1.4-6.9) D-Dimer (215-500) ng/mL Puncture Site LEFT RADIAL pCO2 67 H* (35-45) mmHg pO2 73 L (75-100) mmHg Base Excess 8.7 H (-2.0-2.0) O2 Saturation 93.8 L (94-100) g/dF ABG pH 7.34 L (7.35-7.45) ABG HCO3 36.1 H* (22-28) ABG O2 Sat (Measured) 96.9 (95-100) % Marco Test YES A-a Gradient 271 a/A Ratio 0.21 Hemoglobin 9.3 Carboxyhemoglobin 2.2 (0.0-6.9) % THgb Methemoglobin 1.0 L (1.4-1.5) % Temperature 37.0 C POC O2 Flow Rate 60 % Vent Mode Inspiratory BiPAP Expiratory BiPAP Sodium (137-145) mmol/L Potassium 5.2 H (3.5-5.1) mmol/L Chloride (98-107) mmol/L Carbon Dioxide (22-30) mmol/L Anion Gap (5-15) MEQ/L BUN (7-17) mg/dL Creatinine (0.52-1.04) mg/dL Estimated GFR ML/MIN Glucose (74-106) mg/dL Lactic Acid 1.8 (0.4-2.0) Calcium (8.4-10.2) mg/dL Total Bilirubin (0.2-1.3) mg/dL AST (14-36) U/L ALT (0-35) U/L Alkaline Phosphatase (38-126) U/L Troponin I < 0.012 < 0.012 (0.000-0.034) ng/mL NT-Pro-B Natriuret Pep (0-900) pg/mL Serum Total Protein (6.3-8.2) g/dL Albumin (3.5-5.0) g/dL 10/03/17 10/04/17 10/04/17 Range/Units 23:15 02:15 04:57 WBC (4.0-10.5) K/mm3 RBC (4.1-5.4) M/mm3 Hgb (12.0-16.0) gm/dl Hct (35-47) % MCV (78-100) fl MCH (26-32) pg MCHC (32-36) g/dl RDW (11.5-14.0) % Plt Count (150-450) K/mm3 MPV (6-9.5) fl Absolute Granulocytes (1.4-6.9) D-Dimer (215-500) ng/mL Puncture Site RIGHT BRACHIAL pCO2 76 H* (35-45) mmHg pO2 63 L (75-100) mmHg Base Excess 7.4 H (-2.0-2.0) O2 Saturation 90.7 L (94-100) g/dF ABG pH 7.28 L (7.35-7.45) ABG HCO3 35.7 H* (22-28) ABG O2 Sat (Measured) 93.4 L (95-100) % Marco Test NOT APPLICABLE A-a Gradient 199 a/A Ratio 0.24 Hemoglobin 8.7 Carboxyhemoglobin 1.8 (0.0-6.9) % THgb Methemoglobin 1.1 L (1.4-1.5) % Temperature 37.0 C POC O2 Flow Rate 50 % Vent Mode Inspiratory BiPAP Expiratory BiPAP Sodium (137-145) mmol/L Potassium 5.9 H (3.5-5.1) mmol/L Chloride (98-107) mmol/L Carbon Dioxide (22-30) mmol/L Anion Gap (5-15) MEQ/L BUN (7-17) mg/dL Creatinine (0.52-1.04) mg/dL Estimated GFR ML/MIN Glucose (74-106) mg/dL Lactic Acid (0.4-2.0) Calcium (8.4-10.2) mg/dL Total Bilirubin (0.2-1.3) mg/dL AST (14-36) U/L ALT (0-35) U/L Alkaline Phosphatase (38-126) U/L Troponin I < 0.012 < 0.012 (0.000-0.034) ng/mL NT-Pro-B Natriuret Pep (0-900) pg/mL Serum Total Protein (6.3-8.2) g/dL Albumin (3.5-5.0) g/dL 10/04/17 10/04/17 10/04/17 Range/Units 05:38 05:38 06:24 WBC (4.0-10.5) K/mm3 RBC (4.1-5.4) M/mm3 Hgb (12.0-16.0) gm/dl Hct (35-47) % MCV (78-100) fl MCH (26-32) pg MCHC (32-36) g/dl RDW (11.5-14.0) % Plt Count (150-450) K/mm3 MPV (6-9.5) fl Absolute Granulocytes (1.4-6.9) D-Dimer (215-500) ng/mL Puncture Site LEFT RADIAL pCO2 86 H* (35-45) mmHg pO2 77 (75-100) mmHg Base Excess 7.7 H (-2.0-2.0) O2 Saturation 93.4 L (94-100) g/dF ABG pH 7.24 L* (7.35-7.45) ABG HCO3 36.9 H* (22-28) ABG O2 Sat (Measured) 96.3 (95-100) % Marco Test NOT APPLICABLE A-a Gradient 172 a/A Ratio 0.31 Hemoglobin 8.9 Carboxyhemoglobin 2.1 (0.0-6.9) % THgb Methemoglobin 1.0 L (1.4-1.5) % Temperature 37.0 C POC O2 Flow Rate 50 % Vent Mode BiPAP Inspiratory BiPAP 14 Expiratory BiPAP 6 Sodium 126 L (137-145) mmol/L Potassium 5.8 H 6.0 H (3.5-5.1) mmol/L Chloride 88 L (98-107) mmol/L Carbon Dioxide 32 H (22-30) mmol/L Anion Gap 10.6 (5-15) MEQ/L BUN 13 (7-17) mg/dL Creatinine 0.91 (0.52-1.04) mg/dL Estimated GFR > 60.0 ML/MIN Glucose 221 H (74-106) mg/dL Lactic Acid (0.4-2.0) Calcium 8.2 L (8.4-10.2) mg/dL Total Bilirubin 0.10 L (0.2-1.3) mg/dL AST 9 L (14-36) U/L ALT 13 (0-35) U/L Alkaline Phosphatase 120 (38-126) U/L Troponin I < 0.012 (0.000-0.034) ng/mL NT-Pro-B Natriuret Pep (0-900) pg/mL Serum Total Protein 6.7 (6.3-8.2) g/dL Albumin 3.5 (3.5-5.0) g/dL - Radiology Impressions Radiology Exams & Impressions: Radiology Procedures Category Date Time Status CHEST 2 VIEWS (PA AND LAT) Routine Exams 10/03/17 18:51 Taken CHEST WITH CONTRAST [CT] Stat Exams 10/03/17 21:00 Taken - Other Procedures and Tests Respiratory Therapy 10/03/17 19:00 Respiratory MDI BID 10/03/17 21:39 Respiratory Nebulizer PRN Respiratory Nebulizer PRN 10/03/17 23:56 Oxygen OXYMIZER-LPM 9% 10/04/17 05:05 BiPap/CPAP STAT Assessment/Plan (1) Acute on chronic respiratory failure Current Visit: Yes Status: Acute Assessment & Plan: spoke with Dr Chivo Bales at [facility] hospitalist service who agrees to accept patient in transfer to [facility] ICU, will send on bipap as patient's clinical condition has improved since initiation of bipap and she is currently hemodynamically stable Code(s): J96.20 - ACUTE AND CHR RESP FAILURE, UNSP W HYPOXIA OR HYPERCAPNIA (2) Pneumonia Current Visit: No Status: Acute Qualifiers: Pneumonia type: due to other aerobic Gram-negative bacteria Laterality: bilateral Lung location: lower lobe of lung Qualified Code(s): J15.6 - Pneumonia due to other Gram-negative bacteria Code(s): J18.9 - PNEUMONIA, UNSPECIFIED ORGANISM Hospital Summary - Vitals & Intake/Output Vital Signs: Vital Signs Temperature 97.8 F 10/04/17 07:37 Pulse Rate 62 10/04/17 07:37 Respiratory Rate 20 10/04/17 07:37 Blood Pressure 106/56 10/04/17 07:37 O2 Sat by Pulse Oximetry 95 10/04/17 07:37 Oxygen-Last Documented O2 Percentage 50% Intake & Output: Intake & Output 10/01/17 10/02/17 10/03/17 10/04/17 11:59 11:59 11:59 11:59 Intake Total 1115 Balance 1115 Weight 116.8 kg - Lab Result Diagrams: 10/03/17 17:15 10/04/17 05:38 Lab Results-Last 24 Hrs: Lab Results-Last 24 Hours 10/03/17 10/03/17 10/03/17 Range/Units 17:15 17:15 17:15 WBC 19.2 H (4.0-10.5) K/mm3 RBC 3.10 L (4.1-5.4) M/mm3 Hgb 9.2 L (12.0-16.0) gm/dl Hct 30.6 L (35-47) % MCV 98.7 (78-100) fl MCH 29.6 (26-32) pg MCHC 30.1 L (32-36) g/dl RDW 14.9 H (11.5-14.0) % Plt Count 502 H (150-450) K/mm3 MPV 8.8 (6-9.5) fl Absolute Granulocytes 17.79 H (1.4-6.9) D-Dimer 845 H* (215-500) ng/mL Puncture Site pCO2 (35-45) mmHg pO2 (75-100) mmHg Base Excess (-2.0-2.0) O2 Saturation (94-100) g/dF ABG pH (7.35-7.45) ABG HCO3 (22-28) ABG O2 Sat (Measured) (95-100) % Marco Test A-a Gradient a/A Ratio Hemoglobin Carboxyhemoglobin (0.0-6.9) % THgb Methemoglobin (1.4-1.5) % Temperature C POC O2 Flow Rate % Vent Mode Inspiratory BiPAP Expiratory BiPAP Sodium 128 L (137-145) mmol/L Potassium 5.6 H (3.5-5.1) mmol/L Chloride 86 L (98-107) mmol/L Carbon Dioxide 33 H (22-30) mmol/L Anion Gap 13.7 (5-15) MEQ/L BUN 10 (7-17) mg/dL Creatinine 0.91 (0.52-1.04) mg/dL Estimated GFR > 60.0 ML/MIN Glucose 138 H (74-106) mg/dL Lactic Acid (0.4-2.0) Calcium 9.0 (8.4-10.2) mg/dL Total Bilirubin 0.30 (0.2-1.3) mg/dL AST 15 (14-36) U/L ALT 15 (0-35) U/L Alkaline Phosphatase 152 H (38-126) U/L Troponin I (0.000-0.034) ng/mL NT-Pro-B Natriuret Pep 1020 H (0-900) pg/mL Serum Total Protein 7.5 (6.3-8.2) g/dL Albumin 4.0 (3.5-5.0) g/dL 10/03/17 10/03/17 10/03/17 Range/Units 17:15 17:18 20:15 WBC (4.0-10.5) K/mm3 RBC (4.1-5.4) M/mm3 Hgb (12.0-16.0) gm/dl Hct (35-47) % MCV (78-100) fl MCH (26-32) pg MCHC (32-36) g/dl RDW (11.5-14.0) % Plt Count (150-450) K/mm3 MPV (6-9.5) fl Absolute Granulocytes (1.4-6.9) D-Dimer (215-500) ng/mL Puncture Site LEFT RADIAL pCO2 67 H* (35-45) mmHg pO2 73 L (75-100) mmHg Base Excess 8.7 H (-2.0-2.0) O2 Saturation 93.8 L (94-100) g/dF ABG pH 7.34 L (7.35-7.45) ABG HCO3 36.1 H* (22-28) ABG O2 Sat (Measured) 96.9 (95-100) % Marco Test YES A-a Gradient 271 a/A Ratio 0.21 Hemoglobin 9.3 Carboxyhemoglobin 2.2 (0.0-6.9) % THgb Methemoglobin 1.0 L (1.4-1.5) % Temperature 37.0 C POC O2 Flow Rate 60 % Vent Mode Inspiratory BiPAP Expiratory BiPAP Sodium (137-145) mmol/L Potassium 5.2 H (3.5-5.1) mmol/L Chloride (98-107) mmol/L Carbon Dioxide (22-30) mmol/L Anion Gap (5-15) MEQ/L BUN (7-17) mg/dL Creatinine (0.52-1.04) mg/dL Estimated GFR ML/MIN Glucose (74-106) mg/dL Lactic Acid 1.8 (0.4-2.0) Calcium (8.4-10.2) mg/dL Total Bilirubin (0.2-1.3) mg/dL AST (14-36) U/L ALT (0-35) U/L Alkaline Phosphatase (38-126) U/L Troponin I < 0.012 < 0.012 (0.000-0.034) ng/mL NT-Pro-B Natriuret Pep (0-900) pg/mL Serum Total Protein (6.3-8.2) g/dL Albumin (3.5-5.0) g/dL 10/03/17 10/04/17 10/04/17 Range/Units 23:15 02:15 04:57 WBC (4.0-10.5) K/mm3 RBC (4.1-5.4) M/mm3 Hgb (12.0-16.0) gm/dl Hct (35-47) % MCV (78-100) fl MCH (26-32) pg MCHC (32-36) g/dl RDW (11.5-14.0) % Plt Count (150-450) K/mm3 MPV (6-9.5) fl Absolute Granulocytes (1.4-6.9) D-Dimer (215-500) ng/mL Puncture Site RIGHT BRACHIAL pCO2 76 H* (35-45) mmHg pO2 63 L (75-100) mmHg Base Excess 7.4 H (-2.0-2.0) O2 Saturation 90.7 L (94-100) g/dF ABG pH 7.28 L (7.35-7.45) ABG HCO3 35.7 H* (22-28) ABG O2 Sat (Measured) 93.4 L (95-100) % Marco Test NOT APPLICABLE A-a Gradient 199 a/A Ratio 0.24 Hemoglobin 8.7 Carboxyhemoglobin 1.8 (0.0-6.9) % THgb Methemoglobin 1.1 L (1.4-1.5) % Temperature 37.0 C POC O2 Flow Rate 50 % Vent Mode Inspiratory BiPAP Expiratory BiPAP Sodium (137-145) mmol/L Potassium 5.9 H (3.5-5.1) mmol/L Chloride (98-107) mmol/L Carbon Dioxide (22-30) mmol/L Anion Gap (5-15) MEQ/L BUN (7-17) mg/dL Creatinine (0.52-1.04) mg/dL Estimated GFR ML/MIN Glucose (74-106) mg/dL Lactic Acid (0.4-2.0) Calcium (8.4-10.2) mg/dL Total Bilirubin (0.2-1.3) mg/dL AST (14-36) U/L ALT (0-35) U/L Alkaline Phosphatase (38-126) U/L Troponin I < 0.012 < 0.012 (0.000-0.034) ng/mL NT-Pro-B Natriuret Pep (0-900) pg/mL Serum Total Protein (6.3-8.2) g/dL Albumin (3.5-5.0) g/dL 10/04/17 10/04/17 10/04/17 Range/Units 05:38 05:38 06:24 WBC (4.0-10.5) K/mm3 RBC (4.1-5.4) M/mm3 Hgb (12.0-16.0) gm/dl Hct (35-47) % MCV (78-100) fl MCH (26-32) pg MCHC (32-36) g/dl RDW (11.5-14.0) % Plt Count (150-450) K/mm3 MPV (6-9.5) fl Absolute Granulocytes (1.4-6.9) D-Dimer (215-500) ng/mL Puncture Site LEFT RADIAL pCO2 86 H* (35-45) mmHg pO2 77 (75-100) mmHg Base Excess 7.7 H (-2.0-2.0) O2 Saturation 93.4 L (94-100) g/dF ABG pH 7.24 L* (7.35-7.45) ABG HCO3 36.9 H* (22-28) ABG O2 Sat (Measured) 96.3 (95-100) % Marco Test NOT APPLICABLE A-a Gradient 172 a/A Ratio 0.31 Hemoglobin 8.9 Carboxyhemoglobin 2.1 (0.0-6.9) % THgb Methemoglobin 1.0 L (1.4-1.5) % Temperature 37.0 C POC O2 Flow Rate 50 % Vent Mode BiPAP Inspiratory BiPAP 14 Expiratory BiPAP 6 Sodium 126 L (137-145) mmol/L Potassium 5.8 H 6.0 H (3.5-5.1) mmol/L Chloride 88 L (98-107) mmol/L Carbon Dioxide 32 H (22-30) mmol/L Anion Gap 10.6 (5-15) MEQ/L BUN 13 (7-17) mg/dL Creatinine 0.91 (0.52-1.04) mg/dL Estimated GFR > 60.0 ML/MIN Glucose 221 H (74-106) mg/dL Lactic Acid (0.4-2.0) Calcium 8.2 L (8.4-10.2) mg/dL Total Bilirubin 0.10 L (0.2-1.3) mg/dL AST 9 L (14-36) U/L ALT 13 (0-35) U/L Alkaline Phosphatase 120 (38-126) U/L Troponin I < 0.012 (0.000-0.034) ng/mL NT-Pro-B Natriuret Pep (0-900) pg/mL Serum Total Protein 6.7 (6.3-8.2) g/dL Albumin 3.5 (3.5-5.0) g/dL - Radiology Exams Ordered Rad Exams-Entire Visit: Radiology Procedures Category Date Time Status CHEST 2 VIEWS (PA AND LAT) Routine Exams 10/03/17 18:51 Taken CHEST WITH CONTRAST [CT] Stat Exams 10/03/17 21:00 Taken - Procedures and Test Procedures and Tests throughout Hospitalization: Therapy Orders & Screens 10/03/17 17:08 Respiratory Nebulizer STAT Comment: Diagnosis: Shortness of Breath 10/03/17 19:00 Respiratory MDI BID Comment: CONCHIS 2 PUFFS BID Diagnosis: Shortness of Breath 10/03/17 21:00 Oxygen OXYMASK-LPM 10% Comment: Diagnosis: Shortness of Breath 10/03/17 21:39 Respiratory Nebulizer PRN Comment: ALBUTEROL Q2PRN FOR SOB/WHEEZING Diagnosis: Shortness of Breath Respiratory Nebulizer PRN Comment: DUONEB Q4PRN FOR SOB/WHEEZING Diagnosis: Shortness of Breath 10/03/17 21:40 Oxygen OXYMASK-LPM 7% Comment: Diagnosis: Shortness of Breath Respiratory Therapy Consult ROUTINE Comment: Reason For Exam: Diagnosis: Shortness of Breath 10/03/17 23:41 RT Screen per Nursing Assess ONCE Comment: Protocol Order Physician Instructions: Greater than 3 points order RT Admission Screen Reason For Exam: Triggered on Admission Diagnosis: Respiratory abnormalities, hyponatremia, high K+ Diagnosis: Respiratory abnormalities, hyponatremia, high K+ Pneumonia: No Home O2: Yes Asthma: No CHF: No Home CPAP/BIPAP: No Home Nebs/MDI: Yes Total Points: 10 10/03/17 23:56 Oxygen OXYMIZER-LPM 9% Comment: Diagnosis: Respiratory abnormalities, hyponatremia, high K+ 10/04/17 05:05 BiPap/CPAP STAT Comment: Diagnosis: Respiratory abnormalities, hyponatremia, high K+ - Discharge Disposition: DC TO [facility] Condition: Serious Prescriptions: No Action Gabapentin 300 mg PO BID Escitalopram Oxalate 10 mg [Lexapro 10 MG] 20 mg PO DAILY Simethicone 80 mg [Mylicon 80MG] 80 mg PO QID PRN PRN Reason: Stomach Upset Alprazolam 1 mg [Xanax 1 mg] 1 mg PO TID #90 tablet Lisinopril [Zestril] 40 mg PO DAILY Ferrous Sulfate 325 mg PO BID Amlodipine Besylate 10 mg [Norvasc 10 MG] 10 mg PO DAILY Budesonide/Formoterol Fumarate [Symbicort 160-4.5 Mcg Inhaler] 6 gm IH BID Metformin HCl 500 mg [Glucophage 500 MG] 500 mg PO BID Hydrochlorothiazide 25 mg [hydroDIURIL 25 MG] 25 mg PO DAILY Quetiapine Fumarate 25 mg [Seroquel 25 MG] 25 mg PO HS Ranitidine HCl [Zantac] 300 mg PO DAILY Potassium Chloride 10 Meq Tab* [Klor Con 10 MEQ] 20 meq PO BID Follow up with: NIKKI GIVENS [Primary Care Provider] - 1 Week
[2017-10-04 08:56] VITALS: BP 108/58; O2SAT 98
[2017-10-04] MEDS: Sodium Chloride 0.9% 1000 ML 1,000 ML IV SCH (09:00)
--- NOTE | 2017-10-04 09:42 | XRAY ---
Indication: Short of breath. Comparison: April 28, 2016. PA/lateral chest again demonstrates cardiomegaly with bibasilar effusions and new hazy airspace disease, left greater than right. Bony thorax intact again with mild degenerative changes and old right rib fractures.
--- NOTE | 2017-10-04 09:45 | XRAY ---
Indication: Short of breath. Elevated d-dimer. Multiple contiguous axial images obtained through the chest using 80 cc Isovue 370 contrast and PE protocol. Comparison: April 04, 2016. There is satisfactory opacification of the pulmonary arteries. Mild respiration artifact. No filling defect or pulmonary embolus. Heart remains enlarged. Aorta minimally calcified without aneurysm/dissection. Stable small mediastinal lymph nodes again largest right subcarinal. Examination of the lung parenchyma again demonstrates small bilateral effusions and moderate bibasilar dependent atelectasis. There also remains diffuse patchy left lung hazy airspace opacities greatest in the upper lobe. Bony thorax intact again with minimal degenerative changes throughout the spine and old right rib fractures. Limited upper abdomen again demonstrates mild fatty liver and 12.5 cm splenomegaly. Impression: 1. Pulmonary embolus evaluation limited by respiration artifact. No obvious central pulmonary embolus. 2. Again recurrent left lung airspace disease with small effusion. 3. Stable cardiomegaly, bibasilar atelectasis, tiny right effusion, fatty liver, and splenomegaly. Comment: Preliminary interpretation was made by [facility]. No critical discrepancy. CTDI 28.13
[2017-10-04] MEDS ORDERED: ROCEPHIN 1 Gm-D5w 50 ml Bag** 1 G/50 ML IVPB IV SCH (20:00)
[2017-10-04] MEDS ORDERED: Zithromax 500 MG/ 250 ML NaCl Premix 500 MG/250 ML IVPB IV SCH (21:00)
[2017-10-04] MEDS ORDERED: Seroquel 25 MG PO SCH (22:00)
== END 2017-10-04 09:30 | disposition short-term general hospital (02) | DRG 189 ==
LOC: ED 16:49 → ICU 20:55
PROVIDERS: ADMIT Family Medicine; ATTEND Family Medicine
DX: J96.20 Acute and chronic respiratory failure, unspecified whether with hypoxia or hypercapnia (principal); J15.6 Pneumonia due to other Gram-negative bacteria; I10 Essential (primary) hypertension; G40.909 Epilepsy, unspecified, not intractable, without status epilepticus; J44.9 Chronic obstructive pulmonary disease, unspecified; M19.90 Unspecified osteoarthritis, unspecified site; N28.9 Disorder of kidney and ureter, unspecified; F41.8 Other specified anxiety disorders; K82.9 Disease of gallbladder, unspecified; Z87.891 Personal history of nicotine dependence; Z79.899 Other long term (current) drug therapy
CPT/HCPCS: 36000; 36415; 36600; 71046; 71260; 80048; 80053; 82375; 82803; 83605; 83880; 84484; 85025; 85379; 87040; 87086; 93005; 93041; 94002; 94640; 96365; 96374; 99285; J0456; J0696; J1650; J2930; A9270-GY

== ENCOUNTER 2017-10-31 12:19 | Emergency (ER) | payer OTHER ==
[2017-10-31 12:32] LABS: A-aADO2 159; ABG HEMOGLOBIN 8.4; ARTERIAL BLOOD GAS BASE EXCESS 13.5 (-2.0-2.0); ARTERIAL BLOOD GAS FIO2 44 %; ARTERIAL BLOOD GAS PO2 53 mmHg (75-100); ARTERIAL BLOOD GAS pH 7.32 (7.35-7.45); CARBOXYHEMOGLOBIN 2.8 % THgb (0.0-6.9); HCO3- 41.7 (22-28); HGB O2 SAT 87.3 g/dF (94-100); Lactic Acid 0.4 (0.4-2.0); Methhemoglobin 0.2 % (1.4-1.5); paO2 pAO1 0.25
[2017-10-31 12:33] LABS: ABG SITE RIGHT RADIAL; ALLEN TEST OK? YES; ARTERIAL BLOOD GAS PCO2 81 mmHg (35-45)
[2017-10-31] MEDS ORDERED: DUONEB 0.5-3 MG/3 ml Neb IH ONE ×2 (12:38→12:39)
--- NOTE | 2017-10-31 12:46 | ERPHSYRPT ---
- History of Present Illness Time Seen by Provider: 10/31/17 12:40 Source: patient, family, EMS Patient Subjective Stated Complaint: PT BROUGHT IN BY AMBULANCE FOR SOB FOR OVER A WEEK, JUST GOT OUT OF [facility] YESTERDAY FOR SAME THING, PT WAS GIVEN IN AMBUANCE A RESP TREATMENT, SOLUMEDEROL Triage Nursing Assessment: PT ALERT, RESP LABORED AT TIMES, SKIN W/D/P. DIMINISHED BREATH SOUNDS. HAS 2 + EDEMA IN LOWER LEGS. = Physician History: 62-year-old white female with history of seizures, COPD, high blood pressure, pneumonia, osteoarthritis, gallbladder disease, renal disease, anxiety, depression Patient is brought by medics with complaint that patient is short of breath Patient apparently had been at [facility] for the past 5 days she was a transferred to [facility]. Patient's daughter of requested that the patient be transferred to this hospital patient is complaining of shortness of breath the patient apparently is continuing edema to the lower extremities. Patient apparently had received Solu-Medrol 125 mg IV, albuterol treatment prior to the arrival She apparently had received 60 mg of Lasix by mouth at the correction. Patient complains of shortness of breath she denies any pain. Past medical history includes seizures, COPD, high blood pressure, pneumonia, osteoarthritis, gallbladder disease, hernia, renal disease, anxiety, depression , perforated bowel. Past surgical history includes cholecystectomy, colon resection. Patient is a former smoker. Timing/Duration: other (at [facility] past 5 days, noted to be short of breath at correction today) Activities at Onset: none Severity of Dyspnea-Max: moderate Severity of Dyspnea-Current: moderate Possible Cause: frequent episodes Modifying Factors: Improves With: albuterol inhaler Associated Symptoms: constant, edema, wheezing, ankle swelling, No intermittent , No anxiety, No cough, No chest pain/discomfort, No fever, No insomnia, No loss of appetite, No lightheadedness, No weakness, No chills, No hemoptysis, No calf pain, No dizziness, No heaviness, No lightheadedness, No leg swelling, No muscle spasms feet, No muscle spasms hands, No painful breathing, No productive cough, No sweating International travel in last 2 weeks: No Allergies/Adverse Reactions: No Known Drug Allergies Allergy (Verified 10/31/17 12:57) Home Medications: Escitalopram Oxalate 10 mg [Lexapro 10 MG] 20 mg PO DAILY 03/01/15 [History] Gabapentin 300 mg PO BID 03/01/15 [History] Simethicone 80 mg [Mylicon 80MG] 80 mg PO QID PRN 03/01/15 [History] Amlodipine Besylate 10 mg [Norvasc 10 MG] 10 mg PO DAILY 09/26/15 [History] Ferrous Sulfate 325 mg PO BID 09/26/15 [History] Lisinopril [Zestril] 40 mg PO DAILY 09/26/15 [History] Budesonide/Formoterol Fumarate [Symbicort 160-4.5 Mcg Inhaler] 6 gm IH BID 04/05 [History] Hydrochlorothiazide 25 mg [hydroDIURIL 25 MG] 25 mg PO DAILY 10/03/17 [ History] Metformin HCl 500 mg [Glucophage 500 MG] 500 mg PO BID 10/03/17 [History] Potassium Chloride 10 Meq Tab* [Klor Con 10 MEQ] 20 meq PO BID 10/03/17 [ History] Quetiapine Fumarate 25 mg [Seroquel 25 MG] 25 mg PO HS 10/03/17 [History] Ranitidine HCl [Zantac] 300 mg PO DAILY 10/03/17 [History] Hx Tetanus, Diphtheria Vaccination/Date Given: Yes Hx Influenza Vaccination/Date Given: Yes Hx Pneumococcal Vaccination/Date Given: Yes Immunizations Up to Date: Yes - Review of Systems Constitutional: No Fever, No Chills Eyes: No Symptoms Ears, Nose, & Throat: No Symptoms Respiratory: Dyspnea, Wheezing Cardiac: Edema, No Chest Pain Abdominal/Gastrointestinal: No Abdominal Pain, No Nausea, No Vomiting, No Diarrhea Genitourinary Symptoms: No Dysuria Musculoskeletal: No Back Pain, No Neck Pain Skin: No Rash Neurological: No Dizziness, No Focal Weakness, No Sensory Changes Psychological: No Symptoms Endocrine: No Symptoms All Other Systems: Reviewed and Negative - Past Medical History Pertinent Past Medical History: Yes Neurological History: Seizures ENT History: No Pertinent History Cardiac History: Hypertension Respiratory History: COPD, Pneumonia Endocrine Medical History: No Pertinent History Musculoskeletal History: Osteoarthritis GI Medical History: Gallbladder Disease, Hernia, Other History: Renal Disease Psycho-Social History: Anxiety, Depression Female Reproductive Disorders: No Pertinent History Other Medical History: PERF BOWEL 06/2013. pt states she had a seizure because she ran out of xanax, pt states she does not remember it, [facility] Pt states that her kidneys leak protein. - Past Surgical History Past Surgical History: Yes Neuro Surgical History: No Pertinent History Cardiac: No Pertinent History Respiratory: No Pertinent History Gastrointestinal: Cholecystectomy, Colon Resection Genitourinary: No Pertinent History Musculoskeletal: No Pertinent History Female Surgical History: No Pertinent History - Social History Smoking Status: Former smoker How long have you smoked: 35 Exposure to second hand smoke: No Drug Use: none Patient Lives Alone: No - Female History Hx Last Menstrual Period: POST - Nursing Vital Signs Nursing Vital Signs: Initial Vital Signs Temperature 98.2 F 10/31/17 12:20 Pulse Rate 69 10/31/17 12:20 Respiratory Rate 22 10/31/17 12:20 Blood Pressure 105/54 10/31/17 12:20 O2 Sat by Pulse Oximetry 89 L 10/31/17 12:20 Pain Scale Pain Intensity 0 - Physical Exam General Appearance: other (well-developed morbidly obese white female alert oriented person place) Eye Exam: PERRL/EOMI Ears, Nose, Throat Exam: hearing grossly normal Neck Exam: normal inspection, supple Respiratory Exam: diminished breath sounds Cardiovascular/Chest Exam: normal heart sounds, regular rate/rhythm Abdominal/Gastrointestinal Exam: soft, normal bowel sounds, distention, No tenderness Extremity Exam: non-tender, pedal edema (2+ pitting edema) Neurologic Exam: alert, oriented x 3, cooperative, 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 nml as tested, sensation nml, No motor deficits Skin Exam: normal color, warm, No dry SpO2 Interpretation: borderline oxygenation SpO2: 91 Oxygen Delivery: Nasal Cannula - Course Nursing assessment & vital signs reviewed: Yes EKG Interpreted by Me: RATE (67 bpm), Sinus Rhythm, Other (EKG: Sinus rhythm, 67 bpm, normal axis, no acute ST or T wave changes noted.) Ordered Tests: Active Orders 24 hr Category Date Time Status Classifier Tender STAT Care 10/31/17 12:25 Active Catheter-Parker Tavera STAT Care 10/31/17 12:24 Active EKG-ER Only STAT Care 10/31/17 12:24 Active IV Insertion STAT Care 10/31/17 12:24 Active Oxygen-ED Only NASAL CANNULA 6 lpm Care 10/31/17 12:24 Active Pulse Oximetry (ED) STAT Care 10/31/17 12:24 Active CHEST 1 VIEW (PORTABLE) Stat Exams 10/31/17 12:25 Taken ARTERIAL BLOOD GASES Stat Lab 10/31/17 12:24 Completed ARTERIAL BLOOD GASES Stat Lab 10/31/17 13:53 Completed BLOOD CULTURE Stat Lab 10/31/17 12:40 Received CBC W DIFF Stat Lab 10/31/17 12:40 Completed CMP Stat Lab 10/31/17 12:40 Completed D-DIMER QUANTITATION Stat Lab 10/31/17 12:40 Completed Lactic Acid Stat Lab 10/31/17 12:24 Completed Manual Differential NC Stat Lab 10/31/17 12:40 Completed NT PRO BNP Stat Lab 10/31/17 12:40 Completed PROTIME WITH INR Stat Lab 10/31/17 12:40 Completed PTT Stat Lab 10/31/17 12:40 Completed TROPONIN Q3H Lab 10/31/17 12:40 Completed TROPONIN Q3H Lab 10/31/17 15:30 Ordered TROPONIN Q3H Lab 10/31/17 18:30 Ordered TROPONIN Q3H Lab 10/31/17 21:30 Ordered TROPONIN Q3H Lab 11/01/17 00:30 Ordered UA W/RFX UR CULTURE Stat Lab 10/31/17 12:28 Received BiPap/CPAP STAT RT 10/31/17 13:02 Active Peak Expiratory Flow Rate ONCE RT 10/31/17 13:01 Active Respiratory Nebulizer STAT RT 10/31/17 12:39 Completed Respiratory Therapy Assessment DAILY RT 10/31/17 13:01 Active Medication Summary Generic Name Dose Route Start Last Admin Trade Name Freq PRN Reason Stop Dose Admin Ceftriaxone Sodium/Dextrose 1 g in 50 mls @ 100 mls/hr 10/31/17 14:34 14:38 Rocephin 1 Gm-D5w 50 Ml Bag IV 10/31/17 15:03 100 mls/hr STAT STA Administration Discontinued Medications Generic Name Dose Route Start Last Admin Trade Name Freq PRN Reason Stop Dose Admin Albuterol/Ipratropium 3 ml 10/31/17 12:38 10/31/17 12:50 Duoneb 0.5-3 Mg/3 Ml Neb IH 10/31/17 12:39 3 ml STAT ONE Administration Albuterol/Ipratropium Confirm 10/31/17 12:39 Duoneb 0.5-3 Mg/3 Ml Neb Administered 10/31/17 12:40 Dose 3 ml IH .STK-MED ONE Furosemide 40 mg 10/31/17 14:07 10/31/17 14:26 Lasix 40 Mg/4 Ml IV 10/31/17 14:08 40 mg STAT ONE Administration Furosemide Confirm 10/31/17 14:16 Lasix 40 Mg/4 Ml Administered 10/31/17 14:17 Dose 40 mg .ROUTE .STK-MED ONE Ceftriaxone Sodium/Dextrose Confirm 10/31/17 14:35 Rocephin 1 Gm-D5w 50 Ml Bag Administered 10/31/17 14:36 Dose 1 g in 50 mls @ ud IV .STK-MED ONE Lab/Rad Data: Laboratory Result Diagrams 10/31/17 12:40 10/31/17 12:40 Laboratory Results 10/31/17 10/31/17 10/31/17 Range/Units 13:53 12:40 12:40 WBC (4.0-10.5) K/mm3 RBC (4.1-5.4) M/mm3 Hgb (12.0-16.0) gm/dl Hct (35-47) % MCV (78-100) fl MCH (26-32) pg MCHC (32-36) g/dl RDW (11.5-14.0) % Plt Count (150-450) K/mm3 MPV (6-9.5) fl Absolute Granulocytes (1.4-6.9) Segmented Neutrophils (36.0-66.0) % Lymphocytes (Manual) (24-44) % Monocytes (Manual) (0.0-12.0) % Platelet Estimate (NORMAL) RBC Morphology Polychromasia Poikilocytosis Basophilic Stippling PT 12.4 H (9.95-12.35) SECONDS INR 1.07 (0.8-3.0) APTT 40.0 H (25.3-37.0) SECONDS D-Dimer 846 H* (215-500) ng/mL Puncture Site LEFT RADIAL pCO2 85 H* (35-45) mmHg pO2 80 (75-100) mmHg Base Excess 13.1 H (-2.0-2.0) O2 Saturation 93.8 L (94-100) g/dF ABG pH 7.30 L (7.35-7.45) ABG HCO3 41.8 H* (22-28) ABG O2 Sat (Measured) 97.3 (95-100) % Marco Test YES A-a Gradient 170 a/A Ratio 0.32 Hemoglobin 8.8 Carboxyhemoglobin 2.2 (0.0-6.9) % THgb Methemoglobin 1.4 (1.4-1.5) % Potassium 5.4 H (3.5-5.1) Temperature 37.0 C POC O2 Flow Rate 50 % Vent Mode BiPAP Inspiratory BiPAP 14 Expiratory BiPAP 6 Sodium (137-145) mmol/L Chloride (98-107) mmol/L Carbon Dioxide (22-30) mmol/L Anion Gap (5-15) MEQ/L BUN (7-17) mg/dL Creatinine (0.52-1.04) mg/dL Estimated GFR ML/MIN Glucose (74-106) mg/dL Lactic Acid (0.4-2.0) Calcium (8.4-10.2) mg/dL Total Bilirubin (0.2-1.3) mg/dL AST (14-36) U/L ALT (0-35) U/L Alkaline Phosphatase (38-126) U/L Troponin I < 0.012 (0.000-0.034) ng/mL NT-Pro-B Natriuret Pep (0-900) pg/mL Serum Total Protein (6.3-8.2) g/dL Albumin (3.5-5.0) g/dL 10/31/17 10/31/17 10/31/17 Range/Units 12:40 12:40 12:24 WBC 9.6 (4.0-10.5) K/mm3 RBC 2.84 L (4.1-5.4) M/mm3 Hgb 8.5 L (12.0-16.0) gm/dl Hct 28.6 L (35-47) % MCV 100.7 H (78-100) fl MCH 29.9 (26-32) pg MCHC 29.7 L (32-36) g/dl RDW 14.7 H (11.5-14.0) % Plt Count 544 H (150-450) K/mm3 MPV 8.5 (6-9.5) fl Absolute Granulocytes 8.04 H (1.4-6.9) Segmented Neutrophils 81 H (36.0-66.0) % Lymphocytes (Manual) 15 L (24-44) % Monocytes (Manual) 4 (0.0-12.0) % Platelet Estimate INCREASED (NORMAL) RBC Morphology ABNORMAL Polychromasia 1+ Poikilocytosis 1+ Basophilic Stippling 1+ PT (9.95-12.35) SECONDS INR (0.8-3.0) APTT (25.3-37.0) SECONDS D-Dimer (215-500) ng/mL Puncture Site RIGHT RADIAL pCO2 81 H* (35-45) mmHg pO2 53 L (75-100) mmHg Base Excess 13.5 H (-2.0-2.0) O2 Saturation 87.3 L (94-100) g/dF ABG pH 7.32 L (7.35-7.45) ABG HCO3 41.7 H* (22-28) ABG O2 Sat (Measured) 90.0 L (95-100) % Marco Test YES A-a Gradient 159 a/A Ratio 0.25 Hemoglobin 8.4 Carboxyhemoglobin 2.8 (0.0-6.9) % THgb Methemoglobin 0.2 L (1.4-1.5) % Potassium 5.1 5.0 (3.5-5.1) Temperature 37.0 C POC O2 Flow Rate 44 % Vent Mode Inspiratory BiPAP Expiratory BiPAP Sodium 136 L (137-145) mmol/L Chloride 89 L (98-107) mmol/L Carbon Dioxide 40 H (22-30) mmol/L Anion Gap 11.7 (5-15) MEQ/L BUN 15 (7-17) mg/dL Creatinine 0.76 (0.52-1.04) mg/dL Estimated GFR > 60.0 ML/MIN Glucose 127 H (74-106) mg/dL Lactic Acid 0.4 (0.4-2.0) Calcium 8.7 (8.4-10.2) mg/dL Total Bilirubin 0.30 (0.2-1.3) mg/dL AST 9 L (14-36) U/L ALT 11 (0-35) U/L Alkaline Phosphatase 92 (38-126) U/L Troponin I (0.000-0.034) ng/mL NT-Pro-B Natriuret Pep 2220 H (0-900) pg/mL Serum Total Protein 6.3 (6.3-8.2) g/dL Albumin 3.6 (3.5-5.0) g/dL - Progress Progress: improved Air Movement: fair Progress Note: 10/31/17 12:47 62-year-old white female with history of COPD high blood pressure, pneumonia, osteoarthritis, renal disease. Brought by medics from [facility]. Patient apparently had been transferred there today after being at [facility] for the past 5 days. Patient's daughter states that she noticed that the patient had continuing edema of her lower legs in the patient was short of breath. On arrival patient is alert she has diminished breath sounds she has 2+ pitting edema. She denies any chest pain she does state she is short of breath. Patient had been given 60 mg of Lasix by the correction this morning she had also received 125 mg of Solu-Medrol and an albuterol treatment by medics prior to arrival. Tavera catheter is placed with a large amount of urine production. Patient is noted to have ABGs showing pH 7.32 PCO2 81 by mouth to 53 bicarbonate 41.7 90% sat on 6 L Patient with EKG that shows normal sinus rhythm 67 bpm normal axis no acute ST or T wave changes Will await patient's chest x-ray chemistry d-dimer troponin. the patient is recieving a Duoneb treatment. 10/31/17 14:38 Patient improving with BiPAP unfortunately, patient's PCO2 increased 85 Patient's O2 sat is 97.3 Patient is awake asking to have the BiPAP removed of told her she needs to be having on at this point in time Patient's chemistry is remarkable for a BNP of 2220 sodium 136 potassium 5.1 chloride 89 bicarbonate 40 glucose is 127 BUN and creatinine were 15 and 0.76 respectively patient's troponin within normal limits d-dimer was elevated at 846 CBC White blood cell 9.6 hemoglobin 8.5 hematocrit 28.6 platelets 544 Patient is given Lasix 40 mg IV and Rocephin 1 g IV. I've discussed the patient's case with Dr. Barnett at [facility]. Patient will be transferred to [facility]. She'll be continued on BiPAP, kept on telemetry. Albuterol treatments 0.5 ml/ 3 mils normal saline if needed. - Departure Time of Disposition: 14:36 Departure Disposition: Transfer ([facility] Dr Barnett) Clinical Impression: hypercapnea, Shortness of breath CHF (congestive heart failure) Qualifiers: Heart failure type: unspecified Heart failure chronicity: acute on chronic Qualified Code(s): I50.9 - Heart failure, unspecified COPD (chronic obstructive pulmonary disease) Qualifiers: COPD type: COPD with acute exacerbation Qualified Code(s): J44.1 - Chronic obstructive pulmonary disease with (acute) exacerbation Condition: Fair Critical Care Time: Yes Critical Care Time(excluding separately billable procedures): 30-74 minutes Referrals: NIKKI GIVENS [Primary Care Provider] - Instructions: Heart Failure, Chronic Obstructive Pulmonary Disease
[2017-10-31 13:07] LABS: Granulocyte Absolute (ANC) 8.04 (1.4-6.9); Hematocrit 28.6 % (35-47); Hemoglobin 8.5 gm/dl (12.0-16.0); Mean Cell Volume 100.7 fl (78-100); Mean Corpuscular Hemoglobin 29.9 pg (26-32); Mean Corpuscular Hgb Concent. 29.7 g/dl (32-36); Mean Platelet Volume 8.5 fl (6-9.5); Platelet Count 544 K/mm3 (150-450); Red Blood Count 2.84 M/mm3 (4.1-5.4); Red Cell Distribution Width 14.7 % (11.5-14.0); White Blood Count 9.6 K/mm3 (4.0-10.5)
[2017-10-31 13:19] LABS: INR 1.07 (0.8-3.0)
[2017-10-31 13:33] LABS: ALBUMIN 3.6 g/dL (3.5-5.0); ALKALINE PHOSPHATASE 92 U/L (38-126); ANION GAP 11.7 MEQ/L (5-15); BLOOD UREA NITROGEN 15 mg/dL (7-17); CHLORIDE 89 mmol/L (98-107); Calcium 8.7 mg/dL (8.4-10.2); Carbon Dioxide 40 mmol/L (22-30); Creatinine 1 0.76 mg/dL (0.52-1.04); Glucose 127 mg/dL (74-106); NT PRO BNP 2220 pg/mL (0-900); Potassium 5.1 mmol/L (3.5-5.1); SGOT/AST 9 U/L (14-36); SGPT/ALT 11 U/L (0-35); SODIUM 136 mmol/L (137-145); Total Protein 6.3 g/dL (6.3-8.2)
[2017-10-31 13:55] LABS: A-aADO2 170; ABG HEMOGLOBIN 8.8; ABG POTASSIUM 5.4 (3.5-5.1); ABG SITE LEFT RADIAL; ALLEN TEST OK? YES; ARTERIAL BLD GAS O2 SATURATION 97.3 % (95-100); ARTERIAL BLOOD GAS BASE EXCESS 13.1 (-2.0-2.0); ARTERIAL BLOOD GAS FIO2 50 %; ARTERIAL BLOOD GAS PCO2 85 mmHg (35-45); ARTERIAL BLOOD GAS PO2 80 mmHg (75-100); ARTERIAL BLOOD GAS VENT MODE BiPAP; CARBOXYHEMOGLOBIN 2.2 % THgb (0.0-6.9); HCO3- 41.8 (22-28); HGB O2 SAT 93.8 g/dF (94-100); Methhemoglobin 1.4 % (1.4-1.5); paO2 pAO1 0.32
[2017-10-31] MEDS ORDERED: Lasix 40 MG/4 ML IV ONE (14:07)
[2017-10-31] MEDS ORDERED: Lasix 40 MG/4 ML ONE (14:16)
[2017-10-31] MEDS ORDERED: ROCEPHIN 1 Gm-D5w 50 ml Bag** 1 G/50 ML IVPB IV STA (14:34)
[2017-10-31] MEDS ORDERED: ROCEPHIN 1 Gm-D5w 50 ml Bag** 1 G/50 ML IVPB IV ONE (14:35)
[2017-10-31 14:42] LABS: Lymphocytes 15 % (24-44); Monocyte 4 % (0.0-12.0); Neutrophils 81 % (36.0-66.0); Total Cells Counted 100
[2017-10-31 14:43] LABS: Basophilic Stippling 1+; Poikilocytosis 1+; Polychromasia 1+
[2017-10-31 14:44] LABS: Platelet Estimate INCREASED (NORMAL)
[2017-10-31 15:00] VITALS: BP 137/66; PULSE 72; O2SAT 94
[2017-10-31 15:29] LABS: Appearance CLEAR (CLEAR); Bilirubin NEGATIVE (NEGATIVE); Blood NEGATIVE Ery/ul (0-5); Glucose NEGATIVE (NEGATIVE); Ketones NEGATIVE (NEGATIVE); Leukocyte Esterase NEGATIVE (NEGATIVE); Nitrite NEGATIVE (NEGATIVE); Protein,Urine Dip NEGATIVE (Negative); Urobilinogen NORMAL mg/dL (0-1)
--- NOTE | 2017-10-31 21:30 | XRAY ---
Indication: Short of breath. Comparison: October 03, 2017. Portable chest again demonstrates diffuse bilateral hazy airspace disease slightly improved on the left. Stable small bilateral effusions and cardiomegaly. No new cardiopulmonary abnormalities.
== END 2017-10-31 15:50 | disposition short-term general hospital (02) ==
LOC: ED 12:19
DX: R06.89 Other abnormalities of breathing (principal); R06.02 Shortness of breath; I50.9 Heart failure, unspecified; J44.1 Chronic obstructive pulmonary disease with (acute) exacerbation; I10 Essential (primary) hypertension; M19.90 Unspecified osteoarthritis, unspecified site; N28.9 Disorder of kidney and ureter, unspecified; F41.8 Other specified anxiety disorders; Z90.49 Acquired absence of other specified parts of digestive tract; Z79.899 Other long term (current) drug therapy; Z72.0 Tobacco use
CPT/HCPCS: 36000; 36415; 36600; 51702; 71045; 80053; 81002; 82375; 82803; 83605; 83880; 84484; 85025; 85379; 85610; 85730; 87040; 93005; 93041; 94002; 94640; 96365; 96374; 99285; 99291; J0696; J1940; A9270-GY

== ENCOUNTER 2018-02-10 11:18 | Emergency (ER) | payer MEDICAID ==
--- NOTE | 2018-02-10 11:37 | ERPHSYRPT ---
- History of Present Illness Time Seen by Provider: 02/10/18 11:25 Historian: patient Exam Limitations: no limitations Physician History: 62 y/o obese, diabetic white female with h/o htn presents with sharp substernal cp. has been intermittent for 2 months. pt has had a cholecystectomy in the past. pt was on the commode at home this am and experienced the symptoms. she had associated diaphoresis. pt nearly gone now. no soa and no abd pain. pt did not take any asa or nitroglycerin. Timing/Duration: week(s) (8 weeks. worse this am), intermittent, worse (this am) Quality: sharpness Location: substernal Chest Pain Radiation: back Severity of Pain-Max: mild Severity of Pain-Current: mild Modifying Factors: Improves With: nothing Associated Symptoms: diaphoresis, No nausea, No vomiting, No palpitations, No heartburn, No abdominal pain, No shortness of breath, No cough, No hurts to breathe, No chills, No fever, No fatigue, No weakness, No swelling/lump in chest , No syncope Aspirin Treatment Today: no aspirin today Allergies/Adverse Reactions: No Known Drug Allergies Allergy (Verified 02/10/18 11:21) Home Medications: Escitalopram Oxalate 10 mg [Lexapro 10 MG] 20 mg PO DAILY 03/01/15 [History] Gabapentin 300 mg PO BID 03/01/15 [History] Simethicone 80 mg [Mylicon 80MG] 80 mg PO QID PRN 03/01/15 [History] Amlodipine Besylate 10 mg [Norvasc 10 MG] 10 mg PO DAILY 09/26/15 [History] Ferrous Sulfate 325 mg PO BID 09/26/15 [History] Lisinopril [Zestril] 40 mg PO DAILY 09/26/15 [History] Budesonide/Formoterol Fumarate [Symbicort 160-4.5 Mcg Inhaler] 6 gm IH BID 04/05 [History] Hydrochlorothiazide 25 mg [hydroDIURIL 25 MG] 25 mg PO DAILY 10/03/17 [ History] Metformin HCl 500 mg [Glucophage 500 MG] 500 mg PO BID 10/03/17 [History] Potassium Chloride 10 Meq Tab* [Klor Con 10 MEQ] 20 meq PO BID 10/03/17 [ History] Quetiapine Fumarate 25 mg [Seroquel 25 MG] 25 mg PO HS 10/03/17 [History] Ranitidine HCl [Zantac] 300 mg PO DAILY 10/03/17 [History] Hx Tetanus, Diphtheria Vaccination/Date Given: Yes Hx Influenza Vaccination/Date Given: Yes Hx Pneumococcal Vaccination/Date Given: Yes - Review of Systems Constitutional: No Symptoms Eyes: No Symptoms Ears, Nose, & Throat: No Symptoms Respiratory: No Symptoms, No Cough, No Dyspnea, No Stridor, No Wheezing Cardiac: Chest Pain, No Palpitations, No Syncope Abdominal/Gastrointestinal: No Symptoms, No Abdominal Pain, No Nausea, No Vomiting, No Diarrhea Genitourinary Symptoms: No Symptoms, No Dysuria, No Frequency, No Hematuria Musculoskeletal: No Symptoms, No Back Pain, No Neck Pain, No Deformity, No Injury Skin: No Symptoms Neurological: No Symptoms Psychological: No Symptoms Endocrine: No Symptoms Hematologic/Lymphatic: No Symptoms Immunological/Allergic: No Symptoms All Other Systems: Reviewed and Negative - Past Medical History Pertinent Past Medical History: Yes Neurological History: Seizures ENT History: No Pertinent History Cardiac History: Hypertension Respiratory History: COPD, Pneumonia Endocrine Medical History: No Pertinent History Musculoskeletal History: Osteoarthritis GI Medical History: Gallbladder Disease, Hernia, Other History: Renal Disease Psycho-Social History: Anxiety, Depression Female Reproductive Disorders: No Pertinent History Other Medical History: PERF BOWEL 06/2013. pt states she had a seizure because she ran out of xanax, pt states she does not remember it, [facility] Pt states that her kidneys leak protein. - Past Surgical History Past Surgical History: Yes Neuro Surgical History: No Pertinent History Cardiac: No Pertinent History Respiratory: No Pertinent History Gastrointestinal: Cholecystectomy, Colon Resection Genitourinary: No Pertinent History Musculoskeletal: No Pertinent History Female Surgical History: No Pertinent History - Social History Smoking Status: Former smoker How long have you smoked: 35 Exposure to second hand smoke: No Drug Use: none Patient Lives Alone: No - Nursing Vital Signs Nursing Vital Signs: Initial Vital Signs Temperature 97.7 F 02/10/18 11:23 Pulse Rate 62 02/10/18 11:23 Blood Pressure 154/84 02/10/18 11:23 O2 Sat by Pulse Oximetry 100 02/10/18 11:23 Pain Scale Pain Intensity 0 - Physical Exam General Appearance: no apparent distress, alert, anxiety Eye Exam: PERRL/EOMI Ears, Nose, Throat Exam: normal ENT inspection, moist mucous membranes Neck Exam: normal inspection, non-tender, supple, full range of motion Respiratory Exam: normal breath sounds, chest tenderness (mild), lungs clear, airway intact, No respiratory distress, No accessory muscle use, No rhonchi, No wheezing, No stridor Cardiovascular Exam: regular rate/rhythm, normal heart sounds, normal peripheral pulses Gastrointestinal/Abdomen Exam: soft, normal bowel sounds, rebound, No tenderness , No guarding Pelvic Exam: not done Rectal Exam: not done Back Exam: normal inspection, normal range of motion, No CVA tenderness, No vertebral tenderness Extremity Exam: normal inspection, normal range of motion, pelvis stable Neurologic Exam: alert, oriented x 3, cooperative, production solderer II-XII nml as tested Skin Exam: normal color, warm, dry Lymphatic Exam: No adenopathy SpO2 Interpretation: normal Oxygen Delivery: Room Air - Course Nursing assessment & vital signs reviewed: Yes EKG Interpreted by Me: RATE (65), Sinus Rhythm, NORMAL AXIS, NORMAL INTERVALS, NORMAL QRS, NORMAL ST-T, Other (no change whend compared to ekg dated 10/31/17) Ordered Tests: Active Orders 24 hr Category Date Time Status Hotel Office Manager STAT Care 02/10/18 11:40 Active EKG-ER Only STAT Care 02/10/18 11:39 Active IV Insertion STAT Care 02/10/18 11:39 Active CHEST 1 VIEW (PORTABLE) Stat Exams 02/10/18 11:40 Completed CBC W DIFF Stat Lab 02/10/18 11:39 Completed CMP Stat Lab 02/10/18 11:39 Completed D-DIMER QUANTITATION Stat Lab 02/10/18 11:39 Completed TROPONIN Q3H Lab 02/10/18 11:45 Completed TROPONIN Q3H Lab 02/10/18 14:45 Ordered TROPONIN Q3H Lab 02/10/18 17:45 Ordered TROPONIN Q3H Lab 02/10/18 20:45 Ordered TROPONIN Q3H Lab 02/10/18 23:45 Ordered Medication Summary Generic Name Dose Route Start Last Admin Trade Name Freq PRN Reason Stop Dose Admin Sodium Chloride 1,000 mls @ 100 mls/hr 02/10/18 11:45 02/10/18 12:03 Sodium Chloride 0.9% 1000 Ml IV 03/12/18 11:44 100 mls/hr .Q10H MONTEZ Administration Discontinued Medications Generic Name Dose Route Start Last Admin Trade Name Whit PRN Reason Stop Dose Admin Aspirin 324 mg 02/10/18 11:39 02/10/18 12:04 Baby Aspirin 81 Mg Chew PO 02/10/18 11:40 324 mg STAT ONE Administration Aspirin Confirm 02/10/18 12:01 Baby Aspirin 81 Mg Chew Administered 02/10/18 12:02 Dose 324 mg .ROUTE .STK-MED ONE Nitroglycerin 0.4 mg 02/10/18 11:39 02/10/18 12:03 Nitrostat 0.4 Mg (Ed) SL 02/10/18 11:40 Not Given STAT ONE Nitroglycerin Confirm 02/10/18 12:01 Nitrostat 0.4 Mg (Ed) Administered 02/10/18 12:02 Dose 0.4 mg SL .STK-MED ONE Lab/Rad Data: Laboratory Result Diagrams 02/10/18 11:39 02/10/18 11:39 Laboratory Results 02/10/18 02/10/18 02/10/18 Range/Units 11:45 11:39 11:39 WBC (4.0-10.5) K/mm3 RBC (4.1-5.4) M/mm3 Hgb (12.0-16.0) gm/dl Hct (35-47) % MCV (78-100) fl MCH (26-32) pg MCHC (32-36) g/dl RDW (11.5-14.0) % Plt Count (150-450) K/mm3 MPV (6-9.5) fl Gran % (36.0-66.0) % Eos # (Auto) (0-0.5) Absolute Lymphs (auto) (1.0-4.6) Absolute Monos (auto) (0.0-1.3) Lymphocytes % (24.0-44.0) % Monocytes % (0.0-12.0) % Eosinophils % (0.00-5.0) % Basophils % (0.0-0.4) % Absolute Granulocytes (1.4-6.9) Basophils # (0-0.4) D-Dimer 391 (215-500) ng/mL Sodium 141 (137-145) mmol/L Potassium 3.8 (3.5-5.1) mmol/L Chloride 92 L (98-107) mmol/L Carbon Dioxide 37 H (22-30) mmol/L Anion Gap 15.4 H (5-15) MEQ/L BUN 24 H (7-17) mg/dL Creatinine 1.00 (0.52-1.04) mg/dL Estimated GFR > 60.0 ML/MIN Glucose 120 H (74-106) mg/dL Calcium 8.9 (8.4-10.2) mg/dL Total Bilirubin 0.30 (0.2-1.3) mg/dL AST 16 (14-36) U/L ALT 13 (0-35) U/L Alkaline Phosphatase 95 (38-126) U/L Troponin I < 0.012 (0.000-0.034) ng/mL Serum Total Protein 6.9 (6.3-8.2) g/dL Albumin 4.0 (3.5-5.0) g/dL 02/10/18 Range/Units 11:39 WBC 14.8 H (4.0-10.5) K/mm3 RBC 3.38 L (4.1-5.4) M/mm3 Hgb 10.2 L (12.0-16.0) gm/dl Hct 32.8 L (35-47) % MCV 97.0 (78-100) fl MCH 30.1 (26-32) pg MCHC 31.1 L (32-36) g/dl RDW 13.9 (11.5-14.0) % Plt Count 409 (150-450) K/mm3 MPV 9.1 (6-9.5) fl Gran % 81.9 H (36.0-66.0) % Eos # (Auto) 0.54 H (0-0.5) Absolute Lymphs (auto) 1.27 (1.0-4.6) Absolute Monos (auto) 0.83 (0.0-1.3) Lymphocytes % 8.6 L (24.0-44.0) % Monocytes % 5.6 (0.0-12.0) % Eosinophils % 3.7 (0.00-5.0) % Basophils % 0.2 (0.0-0.4) % Absolute Granulocytes 12.10 H (1.4-6.9) Basophils # 0.03 (0-0.4) D-Dimer (215-500) ng/mL Sodium (137-145) mmol/L Potassium (3.5-5.1) mmol/L Chloride (98-107) mmol/L Carbon Dioxide (22-30) mmol/L Anion Gap (5-15) MEQ/L BUN (7-17) mg/dL Creatinine (0.52-1.04) mg/dL Estimated GFR ML/MIN Glucose (74-106) mg/dL Calcium (8.4-10.2) mg/dL Total Bilirubin (0.2-1.3) mg/dL AST (14-36) U/L ALT (0-35) U/L Alkaline Phosphatase (38-126) U/L Troponin I (0.000-0.034) ng/mL Serum Total Protein (6.3-8.2) g/dL Albumin (3.5-5.0) g/dL - Progress Progress: improved, re-examined Progress Note: 02/10/18 14:55 pt states she is feeling better. no cp cxr-? right infiltrate 02/10/18 14:57 Blood Culture(s) Obtained: No Antibiotics given: Yes (rx for home) Counseled pt/family regarding: lab results, diagnosis, need for follow-up, rad results - Departure Time of Disposition: 14:57 Departure Disposition: Home Clinical Impression: Right pulmonary infiltrate on CXR, Leukocytosis Condition: Stable Critical Care Time: No Referrals: NIKKI GIVENS [Primary Care Provider] - Additional Instructions: drink plenty of fluids. follow up with primary doctor for further management Prescriptions: Cefdinir 300 mg PO BID 7 Days #14 capsule Hydrocodone Bit/Acetaminophen [Hydrocodone-Acetaminophen Soln] 10 ml PO Q6H # 120 ml
[2018-02-10] MEDS ORDERED: BABY ASPIRIN 81 MG CHEW PO ONE (11:39)
[2018-02-10] MEDS ORDERED: Nitrostat 0.4 MG (ED) SL ONE ×2 (11:39→12:01)
[2018-02-10] MEDS ORDERED: Sodium Chloride 0.9% 1000 ML 1,000 ML IV SCH (11:45)
[2018-02-10] MEDS ORDERED: Sodium Chloride 0.9% 1000 ML 1,000 ML ONE (12:01)
[2018-02-10] MEDS ORDERED: BABY ASPIRIN 81 MG CHEW ONE (12:01)
[2018-02-10 12:32] LABS: BASOPHIL % 0.2 % (0.0-0.4); Basophil (Absolute #) 0.03 (0-0.4); Eosinophil % 3.7 % (0.00-5.0); Eosinophil (Absolute #) 0.54 (0-0.5); Granulocytes % 81.9 % (36.0-66.0); Hematocrit 32.8 % (35-47); Hemoglobin 10.2 gm/dl (12.0-16.0); Lymphocyte (Absolute #) 1.27 (1.0-4.6); Lymphocytes % 8.6 % (24.0-44.0); Mean Corpuscular Hgb Concent. 31.1 g/dl (32-36); Mean Platelet Volume 9.1 fl (6-9.5); Monocyte (Absolute #) 0.83 (0.0-1.3); Monocytes % 5.6 % (0.0-12.0); Platelet Count 409 K/mm3 (150-450); Red Blood Count 3.38 M/mm3 (4.1-5.4); Red Cell Distribution Width 13.9 % (11.5-14.0); White Blood Count 14.8 K/mm3 (4.0-10.5)
[2018-02-10 12:35] LABS: Mean Corpuscular Hemoglobin 30.1 pg (26-32)
[2018-02-10 12:44] LABS: ALKALINE PHOSPHATASE 95 U/L (38-126); ANION GAP 15.4 MEQ/L (5-15); BLOOD UREA NITROGEN 24 mg/dL (7-17); CHLORIDE 92 mmol/L (98-107); Calcium 8.9 mg/dL (8.4-10.2); Carbon Dioxide 37 mmol/L (22-30); Glucose 120 mg/dL (74-106); Potassium 3.8 mmol/L (3.5-5.1); SGOT/AST 16 U/L (14-36); SGPT/ALT 13 U/L (0-35); SODIUM 141 mmol/L (137-145); Total Protein 6.9 g/dL (6.3-8.2)
--- NOTE | 2018-02-10 12:58 | XRAY ---
Exam: AP upright portable chest film from 02/10/2018. Comparison: AP portable chest film from 10/31/2017. Indication: Chest pain times several months, shortness of breath, patient is on oxygen, no history of prior surgery. Findings: The exam was obtained in a lordotic projection. The heart size is mildly enlarged representing no change. The right paratracheal stripe appears somewhat prominent, but is unchanged. No significant abnormality was seen in this projection on the CT of the chest from 10/03/2017. No central pulmonary vascular congestion or pulmonary vascular redistribution to the upper lung field is seen. No pneumothorax is seen. The left lung appears clear. Within the right lung, there is minimal airspace opacity at the lateral right lung base which may reflect scarring, chronic infiltrate, atelectasis, or pleural thickening. There is also mild blunting of the right costophrenic angle tip consistent with minimal pleural thickening/fluid. The right upper lung field appears clear. No acute osseous process is seen. EKG leads are seen in place. Impression: 1. Chronic mild cardiomegaly without evidence of acute heart failure or pulmonary edema. 2. Mild asymmetric airspace opacity is seen within the peripheral right lung base. This could be due to mild chronic infiltrate, atelectasis, or scarring/pleural thickening in this projection. I believe this is mildly improved as compared 10/31/2017. 3. The right costophrenic angle tip is also blunted suggesting minimal pleural fluid or pleural thickening. 4. The remainder of the right upper lung field and left lung field appears clear.
[2018-02-10 14:01] VITALS: O2SAT 100
[2018-02-10 15:03] VITALS: BP 129/66; PULSE 67
== END 2018-02-10 15:10 | disposition home or self-care (01) ==
LOC: ED 11:18
DX: R91.8 Other nonspecific abnormal finding of lung field (principal); D72.829 Elevated white blood cell count, unspecified; Z79.899 Other long term (current) drug therapy; R61 Generalized hyperhidrosis; I10 Essential (primary) hypertension; E11.9 Type 2 diabetes mellitus without complications; Z79.84 Long term (current) use of oral hypoglycemic drugs
CPT/HCPCS: 36000; 36415; 71045; 80053; 84484; 85025; 85379; 93005; 93041; 96360; 96361; 99284; A9270-GY

== ENCOUNTER 2018-12-28 06:07 | Day surgery (SDC) | payer OTHER ==
[2018-12-28] MEDS ORDERED: Lactated Ringers 1,000 ML IV SCH (06:30)
[2018-12-28] MEDS ORDERED: TETRACAINE 0.5% STERI-UNIT SOL OP ONE ×2 (06:30)
[2018-12-28] MEDS ORDERED: Ak-Dilate OPHTHALMIC*** 1.065 ML, Cyclogyl 1% OPHTH SOL 5 ML 1.065 ML, GATIFLOXACIN 0.5... OP ONE ×4 (06:30)
[2018-12-28] MEDS ORDERED: Lactated Ringers 1,000 ML IV ONE (06:56)
[2018-12-28] MEDS ORDERED: Valium 5 MG PO ONE (07:15)
[2018-12-28] MEDS ORDERED: Versed 2 MG/2 ML Injection ONE (08:05)
[2018-12-28] MEDS ORDERED: Zofran 4 MG/2 ML VIAL IV PRN (09:00)
[2018-12-28] MEDS ORDERED: LIDOCAINE HCL 1% AMPUL 5 ML IJ ONE (09:00)
[2018-12-28] MEDS ORDERED: ACETAZOLAMIDE 250 MG TABLET PO ONE (09:00)
[2018-12-28] MEDS ORDERED: BSS 500 ML, Fortaz/Tazicef 1 GM** 0.2 G IO ONE ×2 (09:00)
[2018-12-28] MEDS ORDERED: Epinephrine Preservative Free 1 MG/ML INTRAOP ONE (09:00)
[2018-12-28] MEDS ORDERED: BETADINE 5% OPHTHALMIC 30 ML OP ONE (09:00)
[2018-12-28 10:13] VITALS: O2SAT 98
[2018-12-28 10:21] VITALS: BP 148/82; PULSE 72
--- NOTE | 2018-12-29 07:37 | OP ---
DATE/TIME OF OPERATION: 12/28/2018 0929 TIME DICTATED: 1437 PREOPERATIVE DIAGNOSIS: Senile cataract of left eye. POSTOPERATIVE DIAGNOSIS: Senile cataract of left eye. SURGEON: Joann Bland MD COLOR WEIGHER: None. OPERATION: Cataract extraction of left eye with an intraocular lens implant. STANDARD __X__ COMPLEX ANESTHESIA: Local. Monitored anesthesia care in combination with topical and intra-cameral anesthesia (because of the established specific risk of reflux, arrhythmias, or an anxiety attack associated with ocular manipulation as well as difficulty of the senior commissions analyst to manage such potentially catastrophic events while simultaneously attempting to complete the surgical procedure, it was deemed necessary for the patient's safety to have an anesthesiologist or a nurse vamp stitcher present during the procedure whenever possible. The anesthesiologist or the nurse vamp stitcher was utilized to monitor and regulate the intravenous sedation of the patient, so the patient was cooperative, relaxed, and comfortable). Topical anesthesia using Tetracaine eye drops together with intra cameral anesthesia using Lidocaine 1% MPF. The nurse was utilized to monitor the patient. ANESTHESIA PROVIDER: Devin Lindo CRNA. COMPLICATIONS: None. BLOOD LOSS: None. INDICATIONS: The patient is undergoing cataract surgery in the hopes of eliminating the visual complaints and difficulty. PROCEDURE: After arriving at the facility's outpatient surgery area, an IV was started; the patient was given 5 mg of p.o. Versed. (If an anesthesia provider was not monitoring the patient) The patient was then given topical anesthetic Tetracaine eye drops. A cotton pellet was soaked into a solution of a combination of Zymaxid 0.5%, Santhosh-Synephrine 2.5% and Ocufen (other drops might have been substituted referenced in the patient's record). The pellet was inserted by the RN into the lower conjunctival cul-de-sac with a sterile forceps and left for 20 minutes. The pellet was then removed by the RN with a sterile forceps before taking the patient to the operating room. The preoperative area nurse identified the patient and marked the correct eye to be operated on. I identified the correct eye to be operated on and marked it appropriately in the outpatient surgery area. The patient was then taken into the operating room. Tetracaine eye drops were installed again in the correct eye. The eyelids and the lashes and the lid margins were scrubbed with Betadine solution. One drop of the diluted Betadine solution was placed in the conjunctival cul-de-sac for 45 seconds and then was irrigated. A drop of Tetracaine Gel was placed in the conjunctival cul-de-sac. The patient's forehead was taped to secure it during the procedure. The patient was monitored. The patient was then draped in the usual way for this procedure. An eye speculum was used to separate the eyelids. The eye was then fixated and a temporal 2.5 mm incision was made in the clear cornea temporally at the limbus. Through the incision, 0.25 cc of 1% non-preserved lidocaine was injected into the anterior chamber for intracameral anesthesia. The anterior chamber was then filled with viscoelastic. The pupil was small. I felt that it would be safer to mechanically dilate the pupil. A Malyugin ring was used at this point which dilated the pupil. That was removed at the end of the procedure prior to aspiration of the viscoelastic from the anterior chamber and posterior to the intraocular lens implant. The cataract had a great amount of cortical changes. That rendered seeing the anterior capsule difficult for a safe performance of an anterior capsulotomy. I injected an air bubble into the anterior chamber. I then injected 1 ML of vision blue solution into the anterior chamber. The vision blue solution was irrigated from the anterior chamber after 30 seconds. The anterior capsule was stained which facilitated performing the anterior capsulotomy safely. After that was completed, a cystotome was introduced into the anterior chamber and a round anterior capsulotomy was performed. The capsule was removed by a forceps. Hydrodissection was next carried utilizing a 25-gauge cannula and balanced salt solution to delineate the cortical material from the capsule and the nucleus from the cortical material. The nucleus was rotated freely into the capsular bag with no difficulty. The phaco tip of the [employer] Phacoemulsifier was introduced into the anterior chamber and two grooves were made into the nucleus 90 degrees apart. Using two spatulas resulted into the nucleus being fractured into four quadrants. The phaco tip was then used to remove each quadrant of the nucleus. Viscoelastic was used during this process to protect the corneal endothelium. Once the entire nucleus was removed, the phaco tip then was removed and the irrigation tip was introduced into the eye and the cortex was removed. The posterior capsule was polished. It was noticed that there was a tear into the posterior capsule with few vitreous strands into the pupil plan. An anterior vitrectomy was performed. A 21.50 diopter, [id number], posterior chamber lens implant, was inspected and found to be grossly normal. The implant was inserted into the implant injector cartridge; Viscoelastic again was introduced into the anterior chamber, which filled the capsular bag. The implant injector's cartridge tip was placed at the limbal wound and the posterior chamber implant was released into the capsular bag and rotated appropriately. The implant was found to be into the capsular bag and it was centered. 0.2 ml of Tri-Moxi was introduced via 27 gauge cannula into the vitreous cavity through the ciliary processes. Viscoelastic was aspirated from the anterior chamber and posterior to the intraocular lens implant from the capsular bag using the irrigating tip. The anterior chamber was irrigated and filled with 5 cc antibiotic solution (500 cc of BSS plus 2 ml of Fortaz 100 mg/ml) ( if patient was not allergic to the medication). The lips of the corneal incision were hydrated using BSS solution. The anterior chamber was checked and found to be water tight. __X__ One drop each of antibiotic, steroid and NSAID drops (refer to chart for drops used) were placed in the conjunctival cul-de-sac of the operated eye. Patient tolerated the procedure quite well and left the operating room in satisfactory condition. DISCHARGE SUMMARY: The patient was released in stable condition. The patient and those with the patient were given an instruction sheet as of how to care for the eye after surgery as well as counseling on any abnormal laboratory studies by the postoperative RN. The patient was also given an appointment card for follow-up in the office and is to call immediately for any difficulties including but not limited to pain in the eye, decreased vision, discharge from the eye, headache and or fever. DISCHARGE DIAGNOSIS: Pseudophakia of left eye.
== END 2018-12-28 10:20 | disposition home or self-care (01) ==
LOC: SDC 06:07
PROVIDERS: ATTEND Ophthalmology
DX: H25.812 Combined forms of age-related cataract, left eye (principal); E11.9 Type 2 diabetes mellitus without complications; I10 Essential (primary) hypertension; J44.9 Chronic obstructive pulmonary disease, unspecified; F41.8 Other specified anxiety disorders; Z79.899 Other long term (current) drug therapy
CPT/HCPCS: 36415; 80061; 82962; 83036; 83721; C1780; J0171; J2250; A9270-GY

== ENCOUNTER 2019-02-01 07:16 | Day surgery (SDC) | payer OTHER ==
[~2019-02-01 07:16] MED LIST: Ak-Dilate OPHTHALMIC*** 1.065 ML, Cyclogyl 1% OPHTH SOL 5 ML 1.065 ML, GATIFLOXACIN 0.5... OP ONE; Lactated Ringers 1,000 ML IV ONE; Lactated Ringers 1,000 ML IV SCH; TETRACAINE 0.5% STERI-UNIT SOL OP ONE
[2019-02-01 08:20] LABS: Risk Ratio 3.4
[2019-02-01] MEDS ORDERED: ACETAZOLAMIDE 250 MG TABLET PO ONE (09:00)
[2019-02-01] MEDS ORDERED: LIDOCAINE HCL 1% AMPUL 5 ML IJ ONE (09:00)
[2019-02-01] MEDS ORDERED: BETADINE 5% OPHTHALMIC 30 ML OP ONE (09:00)
[2019-02-01] MEDS ORDERED: BSS 500 ML, Fortaz/Tazicef 1 GM** 0.2 G IO ONE ×2 (09:00)
[2019-02-01] MEDS ORDERED: Zofran 4 MG/2 ML VIAL IV PRN (09:00)
[2019-02-01] MEDS ORDERED: Epinephrine Preservative Free 1 MG/ML INTRAOP ONE (09:00)
[2019-02-01] MEDS ORDERED: DIPRIVAN 200 MG/20 ML IV ONE (09:48)
[2019-02-01] MEDS ORDERED: Versed 2 MG/2 ML Injection ONE (09:51)
[2019-02-01 11:00] VITALS: BP 147/74; PULSE 72; O2SAT 95
--- NOTE | 2019-02-02 09:07 | OP ---
DATE/TIME OF OPERATION: 02/01/2019 0917 TIME DICTATED: 1302 PREOPERATIVE DIAGNOSIS: Senile cataract of right eye. POSTOPERATIVE DIAGNOSIS: Senile cataract of right eye. SURGEON: Joann Bland MD HUMAN RESOURCE ADVISER: None. OPERATION: Cataract extraction of right eye with an intraocular lens implant. STANDARD __X__ COMPLEX ANESTHESIA: MAC. ___X__ Monitored anesthesia care in combination with topical and intra-cameral anesthesia (because of the established specific risk of reflux, arrhythmias, or an anxiety attack associated with ocular manipulation as well as difficulty of the manager consumer to manage such potentially catastrophic events while simultaneously attempting to complete the surgical procedure, it was deemed necessary for the patient's safety to have an anesthesiologist or a nurse control systems eng present during the procedure whenever possible. The anesthesiologist or the nurse control systems eng was utilized to monitor and regulate the intravenous sedation of the patient, so the patient was cooperative, relaxed, and comfortable). Topical anesthesia using Tetracaine eye drops together with intra cameral anesthesia using Lidocaine 1% MPF. The nurse was utilized to monitor the patient. ANESTHESIA PROVIDER: Parminder Obando CRNA. COMPLICATIONS: None. BLOOD LOSS: None. INDICATIONS: The patient is undergoing cataract surgery in the hopes of eliminating the visual complaints and difficulty. PROCEDURE: After arriving at the facility's outpatient surgery area, an IV was started; the patient was given 5 mg of p.o. Versed. (If an anesthesia provider was not monitoring the patient) The patient was then given topical anesthetic Tetracaine eye drops. A cotton pellet was soaked into a solution of a combination of Zymaxid 0.5%, Santhosh-Synephrine 2.5% and Ocufen (other drops might have been substituted referenced in the patient's record). The pellet was inserted by the RN into the lower conjunctival cul-de-sac with a sterile forceps and left for 20 minutes. The pellet was then removed by the RN with a sterile forceps before taking the patient to the operating room. The preoperative area nurse identified the patient and marked the correct eye to be operated on. I identified the correct eye to be operated on and marked it appropriately in the outpatient surgery area. The patient was then taken into the operating room. Tetracaine eye drops were installed again in the correct eye. The eyelids and the lashes and the lid margins were scrubbed with Betadine solution. One drop of the diluted Betadine solution was placed in the conjunctival cul-de-sac for 45 seconds and then was irrigated. A drop of Tetracaine Gel was placed in the conjunctival cul-de-sac. The patient's forehead was taped to secure it during the procedure. The patient was monitored. The patient was then draped in the usual way for this procedure. An eye speculum was used to separate the eyelids. The eye was then fixated and a temporal 2.5 mm incision was made in the clear cornea temporally at the limbus. Through the incision, 0.25 cc of 1% non-preserved lidocaine was injected into the anterior chamber for intracameral anesthesia. The anterior chamber was then filled with viscoelastic. The pupil was small. I felt that it would be safer to mechanically dilate the pupil. A Malyugin ring was used at this point which dilated the pupil. That was removed at the end of the procedure prior to aspiration of the viscoelastic from the anterior chamber and posterior to the intraocular lens implant. The cataract had a great amount of cortical changes. That rendered seeing the anterior capsule difficult for a safe performance of an anterior capsulotomy. I injected an air bubble into the anterior chamber. I then injected 1 ML of vision blue solution into the anterior chamber. The vision blue solution was irrigated from the anterior chamber after 30 seconds. The anterior capsule was stained which facilitated performing the anterior capsulotomy safely. After that was completed, a cystotome was introduced into the anterior chamber and a round anterior capsulotomy was performed. The capsule was removed by a forceps. Hydrodissection was next carried utilizing a 25-gauge cannula and balanced salt solution to delineate the cortical material from the capsule and the nucleus from the cortical material. The nucleus was rotated freely into the capsular bag with no difficulty. The phaco tip of the [facility] Phacoemulsifier was introduced into the anterior chamber and two grooves were made into the nucleus 90 degrees apart. Using two spatulas resulted into the nucleus being fractured into four quadrants. The phaco tip was then used to remove each quadrant of the nucleus. Viscoelastic was used during this process to protect the corneal endothelium. Once the entire nucleus was removed, the phaco tip then was removed and the irrigation tip was introduced into the eye and the cortex was removed. The posterior capsule was polished. It was noticed that there was a tear into the posterior capsule with few vitreous strands into the pupil plan. An anterior vitrectomy was performed. A 21.00 diopter, [id number], posterior chamber lens implant, was inspected and found to be grossly normal. The implant was inserted into the implant injector cartridge; Viscoelastic again was introduced into the anterior chamber, which filled the capsular bag. The implant injector's cartridge tip was placed at the limbal wound and the posterior chamber implant was released into the capsular bag and rotated appropriately. The implant was found to be into the capsular bag and it was centered. 0.2 ml of Tri-Moxi was introduced via 27 gauge cannula into the vitreous cavity through the ciliary processes. Viscoelastic was aspirated from the anterior chamber and posterior to the intraocular lens implant from the capsular bag using the irrigating tip. The anterior chamber was irrigated and filled with 5 cc antibiotic solution (500 cc of BSS plus 2 ml of Fortaz 100 mg/ml) ( if patient was not allergic to the medication). The lips of the corneal incision were hydrated using BSS solution. The anterior chamber was checked and found to be water tight. __X__ One drop each of antibiotic, steroid and NSAID drops (refer to chart for drops used) were placed in the conjunctival cul-de-sac of the operated eye. Patient tolerated the procedure quite well and left the operating room in satisfactory condition. DISCHARGE SUMMARY: The patient was released in stable condition. The patient and those with the patient were given an instruction sheet as of how to care for the eye after surgery as well as counseling on any abnormal laboratory studies by the postoperative RN. The patient was also given an appointment card for follow-up in the office and is to call immediately for any difficulties including but not limited to pain in the eye, decreased vision, discharge from the eye, headache and or fever. DISCHARGE DIAGNOSIS: Pseudophakia of right eye.
== END 2019-02-01 11:00 | disposition home or self-care (01) ==
LOC: SDC 07:16
PROVIDERS: ATTEND Ophthalmology
DX: H25.811 Combined forms of age-related cataract, right eye (principal); E11.9 Type 2 diabetes mellitus without complications; K21.9 Gastro-esophageal reflux disease without esophagitis; I10 Essential (primary) hypertension; J44.9 Chronic obstructive pulmonary disease, unspecified; F41.8 Other specified anxiety disorders; Z79.899 Other long term (current) drug therapy
CPT/HCPCS: 36415; 80061; 82962; 83721; 84450; C1780; J0171; J2250; J2704; A9270-GY

== ENCOUNTER 2019-02-05 22:20 | Emergency (ER) | payer OTHER ==
[2019-02-05] MEDS ORDERED: DUONEB 0.5-3 MG/3 ml Neb IH ONE ×2 (22:32→22:40)
[2019-02-05] MEDS ORDERED: Sodium Chloride 0.9% 1000 ML 1,000 ML ONE (22:40)
--- NOTE | 2019-02-05 22:40 | ERPHSYRPT ---
- History of Present Illness Time Seen by Provider: 02/05/19 22:37 Source: patient, family Exam Limitations: no limitations Patient Subjective Stated Complaint: pt states she has had a fever and and has been short of breath, unknown when it statred. pt's daughter states she was well on thursday. also states pt has been taking too much xanax since last refill Triage Nursing Assessment: pt awake and alert, answers questions, pt to room per wheelchair, transfers to stretcher per self with steady gait noted. skin warm and dry. respirations nonlabored, lungs cta. pt restless in bed. Physician History: pt states she has had a fever and and has been short of breath, unknown when it started. patient's daughter states she was well on Thursday. also states pt has been taking too much xanax since last refill Timing/Duration: day(s) Severity of Dyspnea-Max: mild Severity of Dyspnea-Current: mild Associated Symptoms: fever, wheezing International travel in last 2 weeks: No Allergies/Adverse Reactions: No Known Drug Allergies Allergy (Verified 02/01/19 08:03) Home Medications: Escitalopram Oxalate 10 mg [Lexapro 10 MG] 20 mg PO DAILY 03/01/15 [History] Gabapentin 300 mg PO BID 03/01/15 [History] Ferrous Sulfate 325 mg PO BID 09/26/15 [History] Budesonide/Formoterol Fumarate [Symbicort 160-4.5 Mcg Inhaler] 6 gm IH BID 04/05 [History] Potassium Chloride 10 Meq Tab* [Klor Con 10 MEQ] 20 meq PO BID 10/03/17 [ History] Alprazolam 1 mg [Xanax 1 mg] 0.5 mg PO TID 12/21/18 [History] Carvedilol 12.5 mg [Coreg 12.5 mg] 12.5 mg PO BID 12/21/18 [History] Furosemide [Lasix] 40 mg PO BID 12/21/18 [History] Hydralazine HCl 10 mg PO BID 12/21/18 [History] Trazodone HCl 50 mg [Desyrel 50 mg] 150 mg PO HS 12/21/18 [History] Polyethylene Glycol 3350 17 gm [Miralax Powder 17GM PACKET] 17 gm PO DAILY [History] Simvastatin 10 mg [Zocor 10MG] 10 mg PO QPM 02/01/19 [History] Famotidine [Pepcid] 40 mg PO DAILY 02/06/19 [History] Hx Tetanus, Diphtheria Vaccination/Date Given: Yes Hx Influenza Vaccination/Date Given: No Hx Pneumococcal Vaccination/Date Given: Yes Immunizations Up to Date: Yes - Review of Systems Constitutional: Fever, No Chills Eyes: No Symptoms Ears, Nose, & Throat: No Symptoms Respiratory: Cough, Dyspnea, Dyspnea on Exertion (AGARWAL), Wheezing Cardiac: No Chest Pain, No Edema, No Syncope Abdominal/Gastrointestinal: No Abdominal Pain, No Nausea, No Vomiting, No Diarrhea Genitourinary Symptoms: No Dysuria Musculoskeletal: No Back Pain, No Neck Pain Skin: No Rash Neurological: No Dizziness, No Focal Weakness, No Sensory Changes Psychological: No Symptoms Endocrine: No Symptoms All Other Systems: Reviewed and Negative - Past Medical History Pertinent Past Medical History: Yes Neurological History: Seizures ENT History: No Pertinent History Cardiac History: Hypertension Respiratory History: COPD, Pneumonia Endocrine Medical History: No Pertinent History Musculoskeletal History: Osteoarthritis GI Medical History: Gallbladder Disease, Hernia, Other History: Renal Disease Psycho-Social History: Anxiety, Depression Female Reproductive Disorders: No Pertinent History Other Medical History: PERF BOWEL 06/2013. pt states she had a seizure because she ran out of xanax, pt states she does not remember it, [facility] Pt states that her kidneys leak protein. - Past Surgical History Past Surgical History: Yes Neuro Surgical History: No Pertinent History Cardiac: No Pertinent History Respiratory: No Pertinent History Gastrointestinal: Cholecystectomy, Colon Resection Genitourinary: No Pertinent History Musculoskeletal: No Pertinent History Female Surgical History: No Pertinent History - Social History Smoking Status: Former smoker How long have you smoked: 35 Exposure to second hand smoke: No Drug Use: none Patient Lives Alone: Yes - Nursing Vital Signs Nursing Vital Signs: Initial Vital Signs Temperature 102.5 F 02/05/19 22:21 Pulse Rate 97 H 02/05/19 22:21 Respiratory Rate 22 02/05/19 22:21 Blood Pressure 166/72 02/05/19 22:21 O2 Sat by Pulse Oximetry 96 02/05/19 22:21 Pain Scale Pain Intensity 7 - Physical Exam General Appearance: no apparent distress, alert Eye Exam: PERRL/EOMI Neck Exam: normal inspection, supple Respiratory Exam: diminished breath sounds, rhonchi, wheezing Cardiovascular/Chest Exam: normal heart sounds, regular rate/rhythm Abdominal/Gastrointestinal Exam: soft, No tenderness, No distention, No mass Extremity Exam: non-tender, normal range of motion, normal inspection, no calf tenderness, no pedal edema Neurologic Exam: alert, oriented x 3, cooperative, flatwork presser II-XII nml as tested, sensation nml, No motor deficits Skin Exam: normal color, warm, No dry SpO2 Interpretation: normal SpO2: 96 - Course Nursing assessment & vital signs reviewed: Yes EKG Interpreted by Me: Sinus Rhythm - Radiology Exams Chest X-ray Interpretation: Reviewed by me (COPD changes) Ordered Tests: Active Orders 24 hr Category Date Time Status Numerical Control Operator STAT Care 02/05/19 22:39 Active EKG-ER Only STAT Care 02/05/19 22:32 Active [place] [Catheter-[place] Tavera] STAT Care 02/05/19 22:53 Active IV Insertion STAT Care 02/05/19 22:39 Active Oxygen-ED Only Nasal Cannula 2 lpm Care 02/05/19 22:32 Active Pulse Oximetry (ED) STAT Care 02/05/19 22:41 Active CHEST 1 VIEW (PORTABLE) Stat Exams 02/05/19 22:33 Taken CBC W DIFF Stat Lab 02/05/19 22:32 Completed CMP Stat Lab 02/05/19 22:32 Completed CULTURE,SPUTUM Stat Lab 02/05/19 22:51 Ordered CULTURE,URINE Stat Lab 02/05/19 23:38 Received Lactic Acid Stat Lab 02/05/19 22:32 Ordered MAGNESIUM Stat Lab 02/05/19 22:32 Completed NT PRO BNP Stat Lab 02/05/19 22:32 Completed TROPONIN Q3H Lab 02/05/19 22:45 Completed TROPONIN Q3H Lab 02/06/19 01:45 Ordered TROPONIN Q3H Lab 02/06/19 04:45 Ordered TROPONIN Q3H Lab 02/06/19 07:45 Ordered TROPONIN Q3H Lab 02/06/19 10:45 Ordered UA W/RFX UR CULTURE Stat Lab 02/05/19 23:38 Completed Respiratory Therapy Assessment DAILY RT 02/05/19 22:42 Completed Medication Summary Generic Name Dose Route Start Last Admin Trade Name Freq PRN Reason Stop Dose Admin Sodium Chloride 1,000 mls @ 50 mls/hr 02/05/19 22:45 02/05/19 22:41 Sodium Chloride 0.9% 1000 Ml IV 03/07/19 22:44 50 mls/hr .Q20H MONTEZ Administration Discontinued Medications Generic Name Dose Route Start Last Admin Trade Name Whit PRN Reason Stop Dose Admin Albuterol/Ipratropium 3 ml 02/05/19 22:32 02/05/19 22:46 Duoneb 0.5-3 Mg/3 Ml Neb IH 02/05/19 22:33 3 ml STAT ONE Administration Albuterol/Ipratropium Confirm 02/05/19 22:40 Duoneb 0.5-3 Mg/3 Ml Neb Administered 02/05/19 22:41 Dose 3 ml IH .STK-MED ONE Ibuprofen 600 mg 02/05/19 23:03 02/05/19 23:05 Motrin 600 Mg PO 02/05/19 23:04 600 mg STAT ONE Administration Ibuprofen Confirm 02/05/19 23:04 Motrin 600 Mg Administered 02/05/19 23:05 Dose 600 mg .ROUTE .STK-MED ONE Lab/Rad Data: Laboratory Result Diagrams 02/05/19 22:32 02/05/19 22:32 Laboratory Results 02/05/19 02/05/19 02/05/19 Range/Units 23:38 22:45 22:32 WBC (4.0-10.5) K/mm3 RBC (4.1-5.4) M/mm3 Hgb (12.0-16.0) gm/dl Hct (35-47) % MCV (78-100) fl MCH (26-32) pg MCHC (32-36) g/dl RDW (11.5-14.0) % Plt Count (150-450) K/mm3 MPV (6-9.5) fl Gran % (36.0-66.0) % Eos # (Auto) (0-0.5) Absolute Lymphs (auto) (1.0-4.6) Absolute Monos (auto) (0.0-1.3) Lymphocytes % (24.0-44.0) % Monocytes % (0.0-12.0) % Eosinophils % (0.00-5.0) % Basophils % (0.0-0.4) % Absolute Granulocytes (1.4-6.9) Basophils # (0-0.4) Sodium 137 (137-145) mmol/L Potassium 3.9 (3.5-5.1) mmol/L Chloride 94 L (98-107) mmol/L Carbon Dioxide 33 H (22-30) mmol/L Anion Gap 13.1 (5-15) MEQ/L BUN 10 (7-17) mg/dL Creatinine 0.97 (0.52-1.04) mg/dL Estimated GFR > 60.0 ML/MIN Glucose 162 H (74-106) mg/dL Calcium 8.7 (8.4-10.2) mg/dL Magnesium 1.6 (1.6-2.3) mg/dL Total Bilirubin 0.40 (0.2-1.3) mg/dL AST 26 (14-36) U/L ALT 29 (0-35) U/L Alkaline Phosphatase 92 (38-126) U/L Troponin I < 0.012 (0.000-0.034) ng/mL NT-Pro-B Natriuret Pep 1030 H (0-900) pg/mL Serum Total Protein 6.9 (6.3-8.2) g/dL Albumin 3.5 (3.5-5.0) g/dL Urine Color YELLOW (YELLOW) Urine Appearance CLEAR (CLEAR) Urine pH 5.0 (5-6) Ur Specific [place] 1.009 (1.005-1.025) Urine Protein NEGATIVE (Negative) Urine Ketones NEGATIVE (NEGATIVE) Urine Blood NEGATIVE (0-5) Matt/ul Urine Nitrite NEGATIVE (NEGATIVE) Urine Bilirubin NEGATIVE (NEGATIVE) Urine Urobilinogen NEGATIVE (0-1) mg/dL Ur Leukocyte Esterase NEGATIVE (NEGATIVE) Urine WBC (Auto) NONE (0-5) /HPF Urine RBC (Auto) NONE (0-2) /HPF U Epithel Cells (Auto) NONE (FEW) /HPF Urine Bacteria (Auto) NONE (NEGATIVE) /HPF Urine Culture Reflexed ORDERED SEPARATELY (NO) Urine Glucose NEGATIVE (NEGATIVE) mg/dL 02/05/19 Range/Units 22:32 WBC 10.0 (4.0-10.5) K/mm3 RBC 3.46 L (4.1-5.4) M/mm3 Hgb 10.6 L (12.0-16.0) gm/dl Hct 33.0 L (35-47) % MCV 95.4 (78-100) fl MCH 30.6 (26-32) pg MCHC 32.1 (32-36) g/dl RDW 13.8 (11.5-14.0) % Plt Count 283 (150-450) K/mm3 MPV 9.3 (6-9.5) fl Gran % 81.7 H (36.0-66.0) % Eos # (Auto) 0.19 (0-0.5) Absolute Lymphs (auto) 0.80 L (1.0-4.6) Absolute Monos (auto) 0.82 (0.0-1.3) Lymphocytes % 8.0 L (24.0-44.0) % Monocytes % 8.2 (0.0-12.0) % Eosinophils % 1.9 (0.00-5.0) % Basophils % 0.2 (0.0-0.4) % Absolute Granulocytes 8.21 H (1.4-6.9) Basophils # 0.02 (0-0.4) Sodium (137-145) mmol/L Potassium (3.5-5.1) mmol/L Chloride (98-107) mmol/L Carbon Dioxide (22-30) mmol/L Anion Gap (5-15) MEQ/L BUN (7-17) mg/dL Creatinine (0.52-1.04) mg/dL Estimated GFR ML/MIN Glucose (74-106) mg/dL Calcium (8.4-10.2) mg/dL Magnesium (1.6-2.3) mg/dL Total Bilirubin (0.2-1.3) mg/dL AST (14-36) U/L ALT (0-35) U/L Alkaline Phosphatase (38-126) U/L Troponin I (0.000-0.034) ng/mL NT-Pro-B Natriuret Pep (0-900) pg/mL Serum Total Protein (6.3-8.2) g/dL Albumin (3.5-5.0) g/dL Urine Color (YELLOW) Urine Appearance (CLEAR) Urine pH (5-6) Ur Specific [place] (1.005-1.025) Urine Protein (Negative) Urine Ketones (NEGATIVE) Urine Blood (0-5) Matt/ul Urine Nitrite (NEGATIVE) Urine Bilirubin (NEGATIVE) Urine Urobilinogen (0-1) mg/dL Ur Leukocyte Esterase (NEGATIVE) Urine WBC (Auto) (0-5) /HPF Urine RBC (Auto) (0-2) /HPF U Epithel Cells (Auto) (FEW) /HPF Urine Bacteria (Auto) (NEGATIVE) /HPF Urine Culture Reflexed (NO) Urine Glucose (NEGATIVE) mg/dL - Progress Progress: improved Air Movement: good Blood Culture(s) Obtained: No Antibiotics given: No Counseled pt/family regarding: drug and/or alcohol abuse, lab results, diagnosis , need for follow-up, rad results, smoking cessation - Departure Departure Disposition: Home Clinical Impression: Fever Qualifiers: Fever type: unspecified Qualified Code(s): R50.9 - Fever, unspecified CHF (congestive heart failure) Qualifiers: Heart failure type: right-sided Heart failure chronicity: chronic Qualified Code(s): I50.812 - Chronic right heart failure COPD (chronic obstructive pulmonary disease) Qualifiers: COPD type: unspecified COPD Qualified Code(s): J44.9 - Chronic obstructive pulmonary disease, unspecified Condition: Stable Critical Care Time: No Referrals: VALENCIA LOPEZ [Primary Care Provider] - Instructions: Heart Failure, Chronic Obstructive Pulmonary Disease, Shortness of Breath (Dyspnea) (DC), Exacerbation of COPD (DC) Additional Instructions: Discharge/Care Plan GUIDO JOHNSON was seen on 02/06/19 in the Emergency Room. The patient was counseled regarding Diagnosis,Lab results, Imaging studies, need for follow up and when to return to the Emergency Room. Prescriptions given: Discharge Note I have spoken with the patient and/or caregivers. I have explained the patient' s condition, diagnosis and treatment plan based on the information available to me at this time. I have answered the patient's and/or caregiver's questions and addressed any concerns. The patient and/or caregivers have as good understanding of the patient's diagnosis, condition and treatment plan as can be expected at this point. The vital signs have been stable. The patient's condition is stable and appropriate for discharge from the emergency department. The patient will pursue further outpatient evaluation with the primary care physician or other designated or consulting physician as outlined in the discharge instructions. The patient and/or caregivers are agreeable to this plan of care and follow-up instructions have been explained in detail. The patient and/or caregivers have received these instruction. The patient/and or caregivers are aware that any significant change in condition or worsening of symptoms should prompt an immediate return to this or the closest emergency department or call 911. GUIDO JOHNSON was seen on 02/06/19 n the Emergency Room. At that time you were treated for an emergent condition, during your visit Laboratory, Radiology and/or other procedures may have been ordered. It is very important that you follow-up with your Primary Care Physician VALENCIA LOPEZ within the next 24-48 hours to review your Emergency Room visit and the final results of testing that was ordered. Some test results such as Urine Cultures, Blood Cultures, and other cultures if ordered will not be finalized for 24-48 hours. If you do not have a Primary Care Provider please call the medical records department at [phone] ext [phone] to obtain a copy of your results or you may sign into our patient portal to obtain these results by visiting us @ [email or web address] and completing the following steps: 1. Click on the Patient Portal link 2. Click the Patient Self Enrollment Link to complete the enrollment form and entering your 3. Once the enrollment form is completed you will receive an email with a temporary ID and password at the email address you provided. 4. Next choose a user name and password. Your user name must be at least 4 characters long and your password must be at least 4 characters long. 5. Choose a security question from the list and provide your answer to the question. If you already have signed into the Health Portal you may access your Health Care Information 06/10 by the following steps: 1. Login to our website @ [email or web address] 2. Enter your original user name and password. FAQS The [facility] Health Portal is an online tool that contains your Lab Results, Radiology Reports, Visit History, Discharge Instructions and Health Summary Lab and Radiology Results will not be available for 72 hours on the portal. The Portal is a secure site, passwords are encryted and URLs are re-written so they cannot be copied and pasted. You and authorized family members are the only ones who can access your Portal. Also there is a timeout feature that protects your information if you leave the Portal page open. If you have technical difficulty please use the Contact Us link on the page this will allow you to submit any questions you have regarding the Portal or you may contact the Medical Record Department at [phone] ext [phone].
[2019-02-05] MEDS ORDERED: Sodium Chloride 0.9% 1000 ML 1,000 ML IV SCH (22:45)
[2019-02-05] MEDS ORDERED: MOTRIN 600 MG PO ONE (23:03)
[2019-02-05] MEDS ORDERED: MOTRIN 600 MG ONE (23:04)
[2019-02-05 23:42] LABS: Appearance CLEAR (CLEAR); Bilirubin NEGATIVE (NEGATIVE); Blood NEGATIVE Ery/ul (0-5); Glucose NEGATIVE (NEGATIVE); Ketones NEGATIVE (NEGATIVE); Leukocyte Esterase NEGATIVE (NEGATIVE); Nitrite NEGATIVE (NEGATIVE); Protein,Urine Dip NEGATIVE (Negative); Specific Gravity 1.009 (1.005-1.025); Urobilinogen NEGATIVE mg/dL (0-1)
[2019-02-05 23:53] LABS: Absolute Neutrophil Ct (ANC) 8.21 (1.4-6.9); BASOPHIL % 0.2 % (0.0-0.4); Basophil (Absolute #) 0.02 (0-0.4); Eosinophil % 1.9 % (0.00-5.0); Eosinophil (Absolute #) 0.19 (0-0.5); Hemoglobin 10.6 gm/dl (12.0-16.0); Mean Cell Volume 95.4 fl (78-100); Mean Corpuscular Hemoglobin 30.6 pg (26-32); Mean Corpuscular Hgb Concent. 32.1 g/dl (32-36); Mean Platelet Volume 9.3 fl (6-9.5); Monocyte (Absolute #) 0.82 (0.0-1.3); Monocytes % 8.2 % (0.0-12.0); Neutrophil % 81.7 % (36.0-66.0); Platelet Count 283 K/mm3 (150-450); Red Blood Count 3.46 M/mm3 (4.1-5.4); Red Cell Distribution Width 13.8 % (11.5-14.0)
[2019-02-06 00:08] VITALS: BP 129/50; PULSE 87; O2SAT 96
[2019-02-06 00:15] LABS: ALBUMIN 3.5 g/dL (3.5-5.0); ALKALINE PHOSPHATASE 92 U/L (38-126); ANION GAP 13.1 MEQ/L (5-15); BLOOD UREA NITROGEN 10 mg/dL (7-17); CHLORIDE 94 mmol/L (98-107); Calcium 8.7 mg/dL (8.4-10.2); Carbon Dioxide 33 mmol/L (22-30); Creatinine 1 0.97 mg/dL (0.52-1.04); Glucose 162 mg/dL (74-106); MAGNESIUM 1.6 mg/dL (1.6-2.3); NT PRO BNP 1030 pg/mL (0-900); Potassium 3.9 mmol/L (3.5-5.1); SGOT/AST 26 U/L (14-36); SGPT/ALT 29 U/L (0-35); SODIUM 137 mmol/L (137-145); Total Protein 6.9 g/dL (6.3-8.2)
--- NOTE | 2019-02-06 10:29 | XRAY ---
Indication: Short of breath. Comparison: February 10, 2018. Portable apical lordotic chest less inflated accentuating cardiopulmonary structures. Stable right costophrenic angle blunting and cardiomegaly. No new cardiopulmonary abnormalities. Bony thorax intact.
== END 2019-02-06 01:37 | disposition home or self-care (01) ==
LOC: ED 22:20
DX: R50.9 Fever, unspecified (principal); I50.812 Chronic right heart failure; J44.9 Chronic obstructive pulmonary disease, unspecified; Z79.899 Other long term (current) drug therapy
CPT/HCPCS: 36000; 36415; 51702; 71045; 80053; 81001; 83735; 83880; 84484; 85025; 87070; 87077; 87086; 87186; 93005; 93041; 94640; 94760; 96360; 96361; 99284; A9270-GY

== ENCOUNTER 2019-03-09 16:43 | Inpatient (IN) | payer OTHER ==
[2019-03-09] MEDS ORDERED: MORPHINE SULFATE 2 MG INJ IV ONE (17:16)
[2019-03-09] MEDS ORDERED: Zofran 4 MG/2 ML VIAL IV ONE (17:16)
[2019-03-09] MEDS ORDERED: Sodium Chloride 0.9% 1000 ML 1,000 ML IV STA (17:16)
--- NOTE | 2019-03-09 17:16 | ERPHSYRPT ---
- History of Present Illness Time Seen by Provider: 03/09/19 17:00 Historian: patient Exam Limitations: no limitations Physician History: abdominal pain and nausea vomiting started today. Patient has a large ventral hernia since her cholecystectomy in 2013. Patient states that normally when she lies down the hernia goes back down but today certainly that down. Patient had a bowel movement today. Timing/Duration: today Activities at Onset: none Quality: sharpness, stabbing Abdominal Pain Onset Location: generalized abdomen Pain Radiation: no radiation Severity of Pain-Max: severe Severity of Pain-Current: severe Modifying Factors: Improves With: nothing Associated Symptoms: nausea, vomiting, No chest pain, No diaphoresis, No diarrhea, No fever/chills, No fatigue, No headache, No heartburn, No loss of appetite, No neck pain, No rash, No shortness of breath, No syncope Previous symptoms: different symptoms Allergies/Adverse Reactions: No Known Drug Allergies Allergy (Verified 03/09/19 16:58) Home Medications: Escitalopram Oxalate 10 mg [Lexapro 10 MG] 20 mg PO DAILY 03/01/15 [History] Gabapentin 300 mg PO BID 03/01/15 [History] Ferrous Sulfate 325 mg PO BID 09/26/15 [History] Budesonide/Formoterol Fumarate [Symbicort 160-4.5 Mcg Inhaler] 6 gm IH BID 04/05 [History] Potassium Chloride 10 Meq Tab* [Klor Con 10 MEQ] 20 meq PO BID 10/03/17 [ History] Alprazolam 1 mg [Xanax 1 mg] 0.5 mg PO TID 12/21/18 [History] Carvedilol 12.5 mg [Coreg 12.5 mg] 12.5 mg PO BID 12/21/18 [History] Furosemide [Lasix] 40 mg PO BID 12/21/18 [History] Hydralazine HCl 10 mg PO BID 12/21/18 [History] Trazodone HCl 50 mg [Desyrel 50 mg] 150 mg PO HS 12/21/18 [History] Polyethylene Glycol 3350 17 gm [Miralax Powder 17GM PACKET] 17 gm PO DAILY [History] Simvastatin 10 mg [Zocor 10MG] 10 mg PO QPM 02/01/19 [History] Famotidine [Pepcid] 40 mg PO DAILY 02/06/19 [History] Hx Tetanus, Diphtheria Vaccination/Date Given: Yes Hx Influenza Vaccination/Date Given: No Hx Pneumococcal Vaccination/Date Given: Yes - Review of Systems Constitutional: No Fever, No Chills Eyes: No Symptoms Ears, Nose, & Throat: No Symptoms Respiratory: No Cough, No Dyspnea Cardiac: No Chest Pain, No Edema, No Syncope Abdominal/Gastrointestinal: Abdominal Pain, Nausea, Vomiting, Constipation, No Diarrhea Genitourinary Symptoms: No Dysuria Musculoskeletal: No Back Pain, No Neck Pain Skin: No Rash Neurological: No Dizziness, No Focal Weakness, No Sensory Changes Psychological: No Symptoms Endocrine: No Symptoms All Other Systems: Reviewed and Negative - Past Medical History Pertinent Past Medical History: Yes Neurological History: Seizures ENT History: No Pertinent History Cardiac History: Hypertension Respiratory History: COPD, Pneumonia Endocrine Medical History: No Pertinent History Musculoskeletal History: Osteoarthritis GI Medical History: Gallbladder Disease, Hernia, Other History: Renal Disease Psycho-Social History: Anxiety, Depression Female Reproductive Disorders: No Pertinent History Other Medical History: PERF BOWEL 06/2013. pt states she had a seizure because she ran out of xanax, pt states she does not remember it, [facility] Pt states that her kidneys leak protein. - Past Surgical History Past Surgical History: Yes Neuro Surgical History: No Pertinent History Cardiac: No Pertinent History Respiratory: No Pertinent History Gastrointestinal: Cholecystectomy, Colon Resection Genitourinary: No Pertinent History Musculoskeletal: No Pertinent History Female Surgical History: No Pertinent History - Social History Smoking Status: Former smoker How long have you smoked: 35 Exposure to second hand smoke: No Drug Use: none Patient Lives Alone: Yes - Nursing Vital Signs Nursing Vital Signs: Initial Vital Signs Temperature 98.5 F 03/09/19 16:45 Pulse Rate 73 03/09/19 16:45 Respiratory Rate 20 03/09/19 16:45 Blood Pressure 100/79 03/09/19 16:45 O2 Sat by Pulse Oximetry 95 03/09/19 16:45 Pain Scale Pain Intensity 9 - Physical Exam General Appearance: no apparent distress, alert Eye Exam: PERRL/EOMI, eyes nml inspection Ears, Nose, Throat Exam: normal ENT inspection, pharynx normal, moist mucous membranes Neck Exam: normal inspection, non-tender, supple, full range of motion Respiratory Exam: normal breath sounds, lungs clear, No respiratory distress Cardiovascular Exam: regular rate/rhythm, normal heart sounds Gastrointestinal/Abdomen Exam: soft, tenderness (diffuse tenderness,), distention (diffuse), hernia, No mass, No guarding, No pulsatile mass, No rebound, No hepatomegaly, No organomegaly Back Exam: normal inspection, normal range of motion, No CVA tenderness, No vertebral tenderness Extremity Exam: normal inspection, normal range of motion, pelvis stable Neurologic Exam: alert, oriented x 3, cooperative, normal mood/affect, nml cerebellar function, sensation nml, No motor deficits Skin Exam: normal color, warm, dry - Course Nursing assessment & vital signs reviewed: Yes Ordered Tests: Active Orders 24 hr Category Date Time Status IV Insertion STAT Care 03/09/19 17:16 Active NG to Suction (Insertion) ROUTINE Care 03/09/19 18:56 Ordered ABDOMEN AND PELVIS W CONTRAST [CT] Stat Exams 03/09/19 17:17 Taken CBC W DIFF Stat Lab 03/09/19 17:40 Completed CMP Stat Lab 03/09/19 17:40 Completed LIPASE Stat Lab 03/09/19 17:40 Completed UA W/RFX UR CULTURE Stat Lab 03/09/19 17:16 Uncollected Medication Summary Discontinued Medications Generic Name Dose Route Start Last Admin Trade Name Whit PRN Reason Stop Dose Admin Hydromorphone HCl 1 mg 03/09/19 18:42 03/09/19 18:53 Hydromorphone 1 Mg/Ml Ampule IV 03/09/19 18:43 1 mg STAT ONE Administration Hydromorphone HCl Confirm 03/09/19 18:52 Hydromorphone 1 Mg/Ml Ampule Administered 03/09/19 18:53 Dose 1 mg .ROUTE .STK-MED ONE Sodium Chloride 1,000 mls @ 999 mls/hr 03/09/19 17:16 03/09/19 18:26 Sodium Chloride 0.9% 1000 Ml IV 03/09/19 18:16 Infused .Q1H1M STA Infusion Sodium Chloride Confirm 03/09/19 17:23 Sodium Chloride 0.9% 1000 Ml Administered 03/09/19 17:24 Dose 1,000 mls @ ud .ROUTE .STK-MED ONE Morphine Sulfate 2 mg 03/09/19 17:16 03/09/19 17:25 Morphine Sulfate 2 Mg Inj IV 03/09/19 17:17 2 mg STAT ONE Administration Morphine Sulfate Confirm 03/09/19 17:23 Morphine Sulfate 2 Mg Inj Administered 03/09/19 17:24 Dose 2 mg .ROUTE .STK-MED ONE Ondansetron HCl 4 mg 03/09/19 17:16 03/09/19 17:25 Zofran 4 Mg/2 Ml Vial IV 03/09/19 17:17 4 mg STAT ONE Administration Ondansetron HCl Confirm 03/09/19 17:17 Zofran 4 Mg/2 Ml Vial Administered 03/09/19 17:18 Dose 4 mg .ROUTE .STK-MED ONE Lab/Rad Data: Laboratory Result Diagrams 03/09/19 17:40 03/09/19 17:40 Laboratory Results 03/09/19 03/09/19 Range/Units 17:40 17:40 WBC 12.9 H (4.0-10.5) K/mm3 RBC 3.67 L (4.1-5.4) M/mm3 Hgb 11.2 L (12.0-16.0) gm/dl Hct 36.1 (35-47) % MCV 98.4 (78-100) fl MCH 30.5 (26-32) pg MCHC 31.0 L (32-36) g/dl RDW 13.8 (11.5-14.0) % Plt Count 278 (150-450) K/mm3 MPV 10.1 H (6-9.5) fl Gran % 73.4 H (36.0-66.0) % Eos # (Auto) 0.72 H (0-0.5) Absolute Lymphs (auto) 1.89 (1.0-4.6) Absolute Monos (auto) 0.79 (0.0-1.3) Lymphocytes % 14.7 L (24.0-44.0) % Monocytes % 6.1 (0.0-12.0) % Eosinophils % 5.6 H (0.00-5.0) % Basophils % 0.2 (0.0-0.4) % Absolute Granulocytes 9.43 H (1.4-6.9) Basophils # 0.02 (0-0.4) Sodium 141 (137-145) mmol/L Potassium 3.8 (3.5-5.1) mmol/L Chloride 94 L (98-107) mmol/L Carbon Dioxide 39 H (22-30) mmol/L Anion Gap 11.4 (5-15) MEQ/L BUN 13 (7-17) mg/dL Creatinine 1.03 (0.52-1.04) mg/dL Estimated GFR 57.9 ML/MIN Glucose 99 (74-106) mg/dL Calcium 9.5 (8.4-10.2) mg/dL Total Bilirubin 0.30 (0.2-1.3) mg/dL AST 18 (14-36) U/L ALT 19 (0-35) U/L Alkaline Phosphatase 91 (38-126) U/L Serum Total Protein 7.8 (6.3-8.2) g/dL Albumin 4.3 (3.5-5.0) g/dL Lipase 60 (23-300) U/L - Progress Progress: unchanged Progress Note: 03/09/19 18:51 as per the radiologist, patient has a partial small bowel obstruction. Discussed with : Melody Will see patient in: hospital (full admit), other (he told made to admit the patient under Dr. Arias.) Counseled pt/family regarding: diagnosis - Departure Departure Disposition: In-patient Admission Clinical Impression: Small bowel obstruction Condition: Stable Critical Care Time: No Referrals: VALENCIA ARIAS [Primary Care Provider] -
[2019-03-09] MEDS ORDERED: Zofran 4 MG/2 ML VIAL ONE (17:17)
[2019-03-09] MEDS ORDERED: MORPHINE SULFATE 2 MG INJ ONE (17:23)
[2019-03-09] MEDS ORDERED: Sodium Chloride 0.9% 1000 ML 1,000 ML ONE (17:23)
[2019-03-09 17:40] LABS: Absolute Neutrophil Ct (ANC) 9.43 (1.4-6.9); BASOPHIL % 0.2 % (0.0-0.4); Basophil (Absolute #) 0.02 (0-0.4); Eosinophil % 5.6 % (0.00-5.0); Eosinophil (Absolute #) 0.72 (0-0.5); Hematocrit 36.1 % (35-47); Hemoglobin 11.2 gm/dl (12.0-16.0); Lymphocyte (Absolute #) 1.89 (1.0-4.6); Lymphocytes % 14.7 % (24.0-44.0); Mean Cell Volume 98.4 fl (78-100); Mean Corpuscular Hemoglobin 30.5 pg (26-32); Mean Platelet Volume 10.1 fl (6-9.5); Monocyte (Absolute #) 0.79 (0.0-1.3); Monocytes % 6.1 % (0.0-12.0); Neutrophil % 73.4 % (36.0-66.0); Platelet Count 278 K/mm3 (150-450); Red Blood Count 3.67 M/mm3 (4.1-5.4); Red Cell Distribution Width 13.8 % (11.5-14.0); White Blood Count 12.9 K/mm3 (4.0-10.5)
[2019-03-09 17:50] LABS: ALBUMIN 4.3 g/dL (3.5-5.0); ANION GAP 11.4 MEQ/L (5-15); BILIRUBIN,TOTAL 0.3 mg/dL (0.2-1.3); Calcium 9.5 mg/dL (8.4-10.2); Creatinine 1 1.03 mg/dL (0.52-1.04); Potassium 3.8 mmol/L (3.5-5.1); Total Protein 7.8 g/dL (6.3-8.2)
[2019-03-09] MEDS ORDERED: Hydromorphone 1 mg/ml Ampule IV ONE (18:42)
[2019-03-09] MEDS ORDERED: Hydromorphone 1 mg/ml Ampule ONE (18:52)
[2019-03-09] MEDS ORDERED: Zofran 4 MG/2 ML VIAL IV PRN (20:54)
[2019-03-09] MEDS ORDERED: DILAUDID 2 MG INJECTION IV PRN (20:54)
--- NOTE | 2019-03-09 21:47 | XRAY ---
Indication: Abdomen pain. Multiple contiguous axial images obtained through the abdomen and pelvis using 80 cc of Isovue-370 contrast only. Comparison: September 26, 2015. Lung bases again demonstrates bibasilar dependent atelectasis, right greater than left. Heart is not enlarged. New small hiatal hernia. Stomach is distended with food/fluid. Stable [place] midline ventral hernia again with herniated small/large loops. Small bowel loops are now uniformly fluid distended up to 3 cm with fluid leveling, ileus versus enteritis. There is distal colonic bowel gas. Normal appendix. Again previous cholecystectomy. Stable left renal scarring with cyst. No free fluid/air. Remaining liver, pancreas, spleen, adrenal glands, kidneys, ureters, bladder, and uterus appear unremarkable. Stable scattered aortoiliac calcifications. No AAA or pathologic retroperitoneal lymphadenopathy. 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 Impression: 1. Stable [place] ventral hernia with herniated small/large loops without obstruction/incarceration. 2. New uniformly fluid distended small bowel loops with fluid leveling, ileus versus enteritis. 3. New small hiatal hernia. 4. Stable left renal scarring with cyst. Comment: Preliminary interpretation was made by [facility]. No critical discrepancy. CTDI 19.23
[2019-03-10] MEDS ORDERED: DUONEB 0.5-3 MG/3 ml Neb IH PRN (00:01)
[2019-03-10] MEDS: Sodium Chloride 0.9% 1000 ML 1,000 ML IV SCH ×3 (00:30→22:22)
[2019-03-10] MEDS: NEURONTIN 300 MG PO SCH ×3 (00:34→22:15)
[2019-03-10] MEDS: Klor Con 10 MEQ PO SCH ×3 (00:34→22:15)
[2019-03-10] MEDS: Zocor 10MG PO SCH ×2 (00:35→22:15)
[2019-03-10] MEDS: FEOSOL 325 MG PO SCH ×3 (00:35→22:14)
[2019-03-10] MEDS: Desyrel 150 MG PO SCH ×2 (00:35→22:15)
[2019-03-10] MEDS: xanAX 0.5 MG PO SCH ×4 (00:35→22:15)
[2019-03-10] MEDS: COREG 12.5 MG PO SCH ×3 (00:35→22:15)
[2019-03-10] MEDS: Lasix 40 MG PO SCH ×3 (00:53→17:16)
[2019-03-10] MEDS: Advair Hfa 230/21 Mcg COMMON CANISTER IH SCH ×2 (07:11→17:10)
[2019-03-10] MEDS ORDERED: DILAUDID 2 MG INJECTION IV PRN (07:15)
[2019-03-10] MEDS: Miralax Powder 17GM PACKET PO SCH (09:32)
[2019-03-10] MEDS: Lexapro 10 MG PO SCH (09:33)
[2019-03-10] MEDS: Pepcid 20 MG PO SCH (09:33)
[2019-03-10] MEDS: Apresoline 25 MG TABLET PO SCH ×2 (09:34→22:14)
[2019-03-10] MEDS ORDERED: NON-FORMULARY ITEM (Hydralazine Hcl [Hydralazine Hcl] 10 MG) PO SCH (10:00)
[2019-03-10] MEDS ORDERED: NON-FORMULARY ITEM (Famotidine [Pepcid] 40 MG) PO SCH (10:00)
[2019-03-10] MEDS: DILAUDID 2 MG INJECTION IV PRN ×3 (11:28→20:08)
[2019-03-11] MEDS: DILAUDID 2 MG INJECTION IV PRN ×6 (00:11→21:21)
[2019-03-11 04:45] LABS: Absolute Neutrophil Ct (ANC) 9.62 (1.4-6.9); BASOPHIL % 0.2 % (0.0-0.4); Basophil (Absolute #) 0.02 (0-0.4); Eosinophil % 3.2 % (0.00-5.0); Eosinophil (Absolute #) 0.39 (0-0.5); Hemoglobin 10.3 gm/dl (12.0-16.0); Lymphocyte (Absolute #) 1.18 (1.0-4.6); Lymphocytes % 9.6 % (24.0-44.0); Mean Cell Volume 100.3 fl (78-100); Mean Corpuscular Hemoglobin 30.4 pg (26-32); Mean Corpuscular Hgb Concent. 30.3 g/dl (32-36); Mean Platelet Volume 9.5 fl (6-9.5); Monocyte (Absolute #) 1.07 (0.0-1.3); Monocytes % 8.7 % (0.0-12.0); Neutrophil % 78.3 % (36.0-66.0); Platelet Count 231 K/mm3 (150-450); Red Blood Count 3.39 M/mm3 (4.1-5.4); White Blood Count 12.3 K/mm3 (4.0-10.5)
[2019-03-11 04:54] LABS: ALBUMIN 3.4 g/dL (3.5-5.0); ALKALINE PHOSPHATASE 86 U/L (38-126); ANION GAP 8.6 MEQ/L (5-15); BLOOD UREA NITROGEN 10 mg/dL (7-17); CHLORIDE 101 mmol/L (98-107); Calcium 8.3 mg/dL (8.4-10.2); Carbon Dioxide 34 mmol/L (22-30); Creatinine 1 0.82 mg/dL (0.52-1.04); Glucose 127 mg/dL (74-106); SGOT/AST 20 U/L (14-36); SGPT/ALT 18 U/L (0-35); SODIUM 139 mmol/L (137-145); Total Protein 6.4 g/dL (6.3-8.2)
[2019-03-11] MEDS ORDERED: Dulcolax 10 MG SUPP PR ONE (07:30)
[2019-03-11] MEDS: Sodium Chloride 0.9% 1000 ML 1,000 ML IV SCH ×2 (08:39→19:55)
--- NOTE | 2019-03-11 09:46 | CONS ---
CONSULT DATE: 03/10/19 REASON FOR CONSULTATION: Possible bowel obstruction. HISTORY OF PRESENT ILLNESS: Patient is morbidly obese and she has medical conditions including hypoxemia on oxygen. She is an extremely high medical risk. She has a questionable small bowel obstruction vs ileus vs incarceration. She does have ventral hernia right upper quadrant, fairly large. It is incarcerated, but it is not strangulated. It feels fairly soft. She is passing a little bit of air. IMPRESSION: I BELIEVE SHE HAS INCARCERATED HERNIA WHICH MAYBE HAS BEEN BLOCKED. IT SHOULD OPEN UP ON ITS OWN. IT HAS GOT A FAIRLY LARGE NECK TO THE HERNIA SAC AND IT IS NOT TIGHT AT THIS TIME. SHE IS AN EXTREME MEDICAL RISK. WOULD NOT START BY OPERATING ON THIS PATIENT. PLAN: She has already pulled out her nasogastric tube. We will continue NPO and IV fluids. Hopefully, this will resolve.
[2019-03-11] MEDS: Miralax Powder 17GM PACKET PO SCH (09:55)
[2019-03-11] MEDS: Apresoline 25 MG TABLET PO SCH ×2 (09:55→21:21)
[2019-03-11] MEDS: Lexapro 10 MG PO SCH (09:56)
[2019-03-11] MEDS: Klor Con 10 MEQ PO SCH ×2 (09:56→21:21)
[2019-03-11] MEDS: Pepcid 20 MG PO SCH (09:56)
[2019-03-11] MEDS: COREG 12.5 MG PO SCH ×2 (09:56→21:21)
[2019-03-11] MEDS: xanAX 0.5 MG PO SCH ×3 (09:56→21:21)
[2019-03-11] MEDS: Lasix 40 MG PO SCH ×2 (09:56→18:08)
[2019-03-11] MEDS: NEURONTIN 300 MG PO SCH ×2 (09:56→21:20)
[2019-03-11] MEDS: FEOSOL 325 MG PO SCH ×2 (09:57→21:21)
[2019-03-11] MEDS: Advair Hfa 230/21 Mcg COMMON CANISTER IH SCH ×2 (10:10→19:55)
[2019-03-11] MEDS ORDERED: CITROMA 296 ML PO ONE (11:30)
[2019-03-11] MEDS: Desyrel 150 MG PO SCH (21:21)
[2019-03-11] MEDS: Zocor 10MG PO SCH (21:21)
[2019-03-12] MEDS: DILAUDID 2 MG INJECTION IV PRN ×5 (03:58→22:03)
[2019-03-12] MEDS: Sodium Chloride 0.9% 1000 ML 1,000 ML IV SCH ×2 (05:39→17:43)
[2019-03-12 05:55] LABS: BASOPHIL % 0.1 % (0.0-0.4); Basophil (Absolute #) 0.01 (0-0.4); Eosinophil % 4.4 % (0.00-5.0); Eosinophil (Absolute #) 0.43 (0-0.5); Hematocrit 30.9 % (35-47); Lymphocyte (Absolute #) 1.23 (1.0-4.6); Lymphocytes % 12.5 % (24.0-44.0); Mean Cell Volume 102.7 fl (78-100); Mean Corpuscular Hemoglobin 29.9 pg (26-32); Mean Corpuscular Hgb Concent. 29.1 g/dl (32-36); Mean Platelet Volume 9.6 fl (6-9.5); Monocyte (Absolute #) 0.67 (0.0-1.3); Monocytes % 6.8 % (0.0-12.0); Neutrophil % 76.2 % (36.0-66.0); Platelet Count 224 K/mm3 (150-450); Red Blood Count 3.01 M/mm3 (4.1-5.4); Red Cell Distribution Width 13.8 % (11.5-14.0); White Blood Count 9.8 K/mm3 (4.0-10.5)
[2019-03-12 06:04] LABS: ALBUMIN 2.8 g/dL (3.5-5.0); ALKALINE PHOSPHATASE 73 U/L (38-126); BLOOD UREA NITROGEN 9 mg/dL (7-17); CHLORIDE 103 mmol/L (98-107); Carbon Dioxide 35 mmol/L (22-30); Creatinine 1 0.83 mg/dL (0.52-1.04); Glucose 90 mg/dL (74-106); Potassium 3.9 mmol/L (3.5-5.1); SGOT/AST 16 U/L (14-36); SGPT/ALT 14 U/L (0-35); SODIUM 143 mmol/L (137-145); Total Protein 5.7 g/dL (6.3-8.2)
[2019-03-12] MEDS: Pepcid 20 MG PO SCH (10:17)
[2019-03-12] MEDS: Klor Con 10 MEQ PO SCH ×2 (10:17→21:27)
[2019-03-12] MEDS: FEOSOL 325 MG PO SCH ×2 (10:18→21:28)
[2019-03-12] MEDS: Apresoline 25 MG TABLET PO SCH ×2 (10:18→21:27)
[2019-03-12] MEDS: xanAX 0.5 MG PO SCH ×3 (10:18→21:29)
[2019-03-12] MEDS: Lasix 40 MG PO SCH ×2 (10:19→17:01)
[2019-03-12] MEDS: Lexapro 10 MG PO SCH (10:20)
[2019-03-12] MEDS: COREG 12.5 MG PO SCH ×2 (10:20→21:28)
[2019-03-12] MEDS: Miralax Powder 17GM PACKET PO SCH (10:21)
[2019-03-12] MEDS: NEURONTIN 300 MG PO SCH ×2 (10:21→21:29)
--- NOTE | 2019-03-12 10:29 | PCM.NOTE ---
Date and Time: 03/12/19 1027 Subjective Assessment: bowels have moved, still has some pain in the abdomen but feels thirsty. Passing flatus Objective Exam General Appearance: no apparent distress, obese Skin Exam: normal color, warm, dry Respiratory Exam: normal breath sounds, lungs clear, No respiratory distress Cardiovascular Exam: regular rate/rhythm, normal heart sounds Gastrointestinal/Abdomen Exam: soft, normal bowel sounds, other (large reducible incisional hernia to the right of the midline), No guarding, No rebound Extremity Exam: normal inspection, normal range of motion OBJECTIVE DATA Vital Signs: Vital Signs - 24 hr Temp Pulse Resp BP Pulse Ox 03/12/19 07:05 98.1 F 60 20 101/51 97 03/12/19 04:00 98.3 F 63 22 140/64 97 03/12/19 00:45 100/65 03/12/19 00:00 97.8 F 60 14 88/44 97 03/11/19 20:00 98.2 F 64 20 101/50 98 03/11/19 19:58 68 18 99 03/11/19 16:00 98.4 F 65 18 101/57 97 03/11/19 12:00 98 F 67 20 103/52 97 Oxygen-Last 24 hours O2 Percentage 3 Liters = 32% O2 Percentage 3 Liters = 32% O2 Percentage 3 Liters = 32% O2 Percentage 3 Liters = 32% O2 Percentage 3 Liters = 32% O2 Percentage 3 Liters = 32% Pain Assessment - Last Documented Pain Intensity 9 Pain Scale Used 0-10 Pain Scale Intake and Output: Intake & Output 03/09/19 03/10/19 03/11/19 03/12/19 11:59 11:59 11:59 11:59 Intake Total 2405 2759 Output Total 850 Balance -850 2405 2759 Weight 95.5 kg 95.5 kg Lab Results: Lab Results-Last 24 Hours 03/12/19 03/12/19 Range/Units 05:32 05:32 WBC 9.8 (4.0-10.5) K/mm3 RBC 3.01 L (4.1-5.4) M/mm3 Hgb 9.0 L (12.0-16.0) gm/dl Hct 30.9 L (35-47) % MCV 102.7 H (78-100) fl MCH 29.9 (26-32) pg MCHC 29.1 L (32-36) g/dl RDW 13.8 (11.5-14.0) % Plt Count 224 (150-450) K/mm3 MPV 9.6 H (6-9.5) fl Gran % 76.2 H (36.0-66.0) % Eos # (Auto) 0.43 (0-0.5) Absolute Lymphs (auto) 1.23 (1.0-4.6) Absolute Monos (auto) 0.67 (0.0-1.3) Lymphocytes % 12.5 L (24.0-44.0) % Monocytes % 6.8 (0.0-12.0) % Eosinophils % 4.4 (0.00-5.0) % Basophils % 0.1 (0.0-0.4) % Absolute Granulocytes 7.50 H (1.4-6.9) Basophils # 0.01 (0-0.4) Sodium 143 (137-145) mmol/L Potassium 3.9 (3.5-5.1) mmol/L Chloride 103 (98-107) mmol/L Carbon Dioxide 35 H (22-30) mmol/L Anion Gap 9.0 (5-15) MEQ/L BUN 9 (7-17) mg/dL Creatinine 0.83 (0.52-1.04) mg/dL Estimated GFR > 60.0 ML/MIN Glucose 90 (74-106) mg/dL Calcium 8.0 L (8.4-10.2) mg/dL Total Bilirubin 0.30 (0.2-1.3) mg/dL AST 16 (14-36) U/L ALT 14 (0-35) U/L Alkaline Phosphatase 73 (38-126) U/L Serum Total Protein 5.7 L (6.3-8.2) g/dL Albumin 2.8 L (3.5-5.0) g/dL Multi-Disciplinary Progress Notes: Multi-Disciplinary Progress Notes 03/11/19 13:09 Case Management Note by Miriam Urbano DISCHARGE PLAN REVIEWED, CONTINUES TO PLAN TO RETURN HOME TO PRE EPISODIC LEVEL OF [facility]. ALL EQUIP AT HOME IN WORKING CONDITION. CASE MANAGEMENT WILL FOLLOW FOR ALL DC NEEDS. Initialized on 03/11/19 13:09 - END OF NOTE Assessment/Plan (1) Small bowel obstruction Current Visit: Yes Status: Acute Assessment & Plan: appears to be resolving, will start clear liquids and advance as tolerated Code(s): K56.609 - UNSP INTESTNL OBST, UNSP TO PARTIAL VERSUS COMPLETE OBST (2) CHF (congestive heart failure) Current Visit: No Status: Acute Code(s): I50.9 - HEART FAILURE, UNSPECIFIED (3) COPD (chronic obstructive pulmonary disease) Current Visit: No Status: Acute
[2019-03-12] MEDS: Advair Hfa 230/21 Mcg COMMON CANISTER IH SCH ×2 (14:12→19:08)
[2019-03-12] MEDS: Zocor 10MG PO SCH (21:28)
[2019-03-12] MEDS: Desyrel 150 MG PO SCH (21:29)
[2019-03-13] MEDS: DILAUDID 2 MG INJECTION IV PRN ×2 (02:44→07:30)
[2019-03-13] MEDS: Sodium Chloride 0.9% 1000 ML 1,000 ML IV SCH (04:38)
[2019-03-13 06:31] LABS: Absolute Neutrophil Ct (ANC) 5.62 (1.4-6.9); BASOPHIL % 0.2 % (0.0-0.4); Basophil (Absolute #) 0.02 (0-0.4); Eosinophil (Absolute #) 0.41 (0-0.5); Hematocrit 30.9 % (35-47); Hemoglobin 9.3 gm/dl (12.0-16.0); Lymphocyte (Absolute #) 1.55 (1.0-4.6); Lymphocytes % 18.8 % (24.0-44.0); Mean Cell Volume 101.3 fl (78-100); Mean Corpuscular Hemoglobin 30.5 pg (26-32); Mean Corpuscular Hgb Concent. 30.1 g/dl (32-36); Mean Platelet Volume 9.7 fl (6-9.5); Monocyte (Absolute #) 0.63 (0.0-1.3); Monocytes % 7.7 % (0.0-12.0); Neutrophil % 68.3 % (36.0-66.0); Platelet Count 236 K/mm3 (150-450); Red Blood Count 3.05 M/mm3 (4.1-5.4); Red Cell Distribution Width 13.7 % (11.5-14.0); White Blood Count 8.2 K/mm3 (4.0-10.5)
[2019-03-13 06:44] LABS: ALBUMIN 3.1 g/dL (3.5-5.0); ALKALINE PHOSPHATASE 68 U/L (38-126); ANION GAP 7.4 MEQ/L (5-15); BLOOD UREA NITROGEN 7 mg/dL (7-17); CHLORIDE 100 mmol/L (98-107); Calcium 8.6 mg/dL (8.4-10.2); Carbon Dioxide 37 mmol/L (22-30); Creatinine 1 0.81 mg/dL (0.52-1.04); Glucose 104 mg/dL (74-106); Potassium 3.8 mmol/L (3.5-5.1); SGOT/AST 11 U/L (14-36); SGPT/ALT 12 U/L (0-35); SODIUM 140 mmol/L (137-145); Total Protein 5.8 g/dL (6.3-8.2)
[2019-03-13] MEDS: Advair Hfa 230/21 Mcg COMMON CANISTER IH SCH (07:41)
--- NOTE | 2019-03-13 09:23 | PCM.DS ---
Discharge Summary Date of Admission: 03/09/19 20:12 Admitting Physician: VALENCIA LOPEZ Consults: Consults on Case 03/09/19 20:54 Consult Surgery ROUTINE Primary Care Provider: VALENCIA LOPEZ Allergies Allergies No Known Drug Allergies Allergy (Verified 03/09/19 16:58) Hospital Summary - Hospital Course Hospital Course: patient was admitted with abdominal pain and nausea, partial SBO. resolved with no intervention, she has a very large incisional/ventral hernia but is a poor surgical candidate. she is tolerating po intake normally, no vomiting, pain is controlled and she has had flatus and a bowel movement and seems back to her baseline at this time. - Vitals & Intake/Output Vital Signs: Vital Signs Temperature 97.8 F 03/13/19 07:20 Pulse Rate 68 03/13/19 07:41 Respiratory Rate 16 03/13/19 07:41 Blood Pressure 130/58 03/13/19 07:20 O2 Sat by Pulse Oximetry 98 03/13/19 07:41 Oxygen-Last Documented O2 Percentage 3 Liters = 32% Intake & Output: Intake & Output 03/10/19 03/11/19 03/12/19 03/13/19 11:59 11:59 11:59 11:59 Intake Total 2405 2759 4453 Output Total 850 3850 Balance -850 2405 2759 603 Weight 95.5 kg 95.5 kg - Lab Result Diagrams: 03/13/19 05:53 03/13/19 05:53 Lab Results-Last 24 Hrs: Lab Results-Last 24 Hours 03/13/19 03/13/19 Range/Units 05:53 05:53 WBC 8.2 (4.0-10.5) K/mm3 RBC 3.05 L (4.1-5.4) M/mm3 Hgb 9.3 L (12.0-16.0) gm/dl Hct 30.9 L (35-47) % MCV 101.3 H (78-100) fl MCH 30.5 (26-32) pg MCHC 30.1 L (32-36) g/dl RDW 13.7 (11.5-14.0) % Plt Count 236 (150-450) K/mm3 MPV 9.7 H (6-9.5) fl Gran % 68.3 H (36.0-66.0) % Eos # (Auto) 0.41 (0-0.5) Absolute Lymphs (auto) 1.55 (1.0-4.6) Absolute Monos (auto) 0.63 (0.0-1.3) Lymphocytes % 18.8 L (24.0-44.0) % Monocytes % 7.7 (0.0-12.0) % Eosinophils % 5.0 (0.00-5.0) % Basophils % 0.2 (0.0-0.4) % Absolute Granulocytes 5.62 (1.4-6.9) Basophils # 0.02 (0-0.4) Sodium 140 (137-145) mmol/L Potassium 3.8 (3.5-5.1) mmol/L Chloride 100 (98-107) mmol/L Carbon Dioxide 37 H (22-30) mmol/L Anion Gap 7.4 (5-15) MEQ/L BUN 7 (7-17) mg/dL Creatinine 0.81 (0.52-1.04) mg/dL Estimated GFR > 60.0 ML/MIN Glucose 104 (74-106) mg/dL Calcium 8.6 (8.4-10.2) mg/dL Total Bilirubin 0.20 (0.2-1.3) mg/dL AST 11 L (14-36) U/L ALT 12 (0-35) U/L Alkaline Phosphatase 68 (38-126) U/L Serum Total Protein 5.8 L (6.3-8.2) g/dL Albumin 3.1 L (3.5-5.0) g/dL - Procedures and Test Procedures and Tests throughout Hospitalization: Therapy Orders & Screens 03/09/19 22:10 RT Screen per Nursing Assess ONCE Comment: Protocol Order Physician Instructions: Greater than 3 points order RT Admission Screen Reason For Exam: Triggered on Admission Diagnosis: SBO Diagnosis: SBO Pneumonia: No Home O2: Yes Asthma: No CHF: No Home CPAP/BIPAP: No Home Nebs/MDI: Yes Total Points: 10 03/09/19 23:10 Smoking Cessation Education ONCE Comment: Diagnosis: SBO Smoking Status: Current every day smoker How long have you smoked: 35 Have you smoked in the past 12 months: No Approximately how many cigarettes per day: 40 Do you dip or chew tobacco: No If,Former Smoker,when did you quit: 201303/09/19 23:51 Oxygen Nasal Cannula 3 lpm Comment: Diagnosis: SBO 03/10/19 00:01 Respiratory Therapy Assessment DAILY Comment: Diagnosis: SBO Discharge Exam General Appearance: no apparent distress, obese Neurologic Exam: alert, oriented x 3, cooperative Respiratory Exam: normal breath sounds, lungs clear, No respiratory distress Cardiovascular Exam: regular rate/rhythm, normal heart sounds Gastrointestinal/Abdomen Exam: soft, normal bowel sounds, other (large, soft reducible ventral/incision hernia) Final Diagnosis/Problem List - Final Discharge Diagnosis/Problem (1) Small bowel obstruction Current Visit: Yes Status: Acute Code(s): K56.609 - UNSP INTESTNL OBST, UNSP TO PARTIAL VERSUS COMPLETE OBST (2) CHF (congestive heart failure) Current Visit: No Status: Acute Code(s): I50.9 - HEART FAILURE, UNSPECIFIED (3) COPD (chronic obstructive pulmonary disease) Current Visit: No Status: Acute - Discharge Disposition: Home, Self-Care Condition: Stable Prescriptions: New Hydrocodone/APAP 5-325 Tab^^^ [[place] 5-325 Tablet^^^] 1 tab PO Q6HPRN PRN # 20 tablet MDD 6 PRN Reason: Pain Continue Gabapentin 300 mg PO BID Escitalopram Oxalate 10 mg [Lexapro 10 MG] 20 mg PO DAILY Ferrous Sulfate 325 mg PO BID Budesonide/Formoterol Fumarate [Symbicort 160-4.5 Mcg Inhaler] 6 gm IH BID Potassium Chloride 10 Meq Tab* [Klor Con 10 MEQ] 20 meq PO BID Furosemide [Lasix] 40 mg PO BID Carvedilol 12.5 mg [Coreg 12.5 mg] 12.5 mg PO BID Hydralazine HCl 10 mg PO BID Trazodone HCl 50 mg [Desyrel 50 mg] 150 mg PO HS Alprazolam 1 mg [Xanax 1 mg] 0.5 mg PO TID Polyethylene Glycol 3350 17 gm [Miralax Powder 17GM PACKET] 17 gm PO DAILY Simvastatin 10 mg [Zocor 10MG] 10 mg PO QPM Famotidine [Pepcid] 40 mg PO DAILY Follow up with: VALENCIA LOPEZ [Primary Care Provider] - 03/25/19 10:00 am
[2019-03-13] MEDS: Klor Con 10 MEQ PO SCH (10:12)
[2019-03-13] MEDS: Miralax Powder 17GM PACKET PO SCH (10:12)
[2019-03-13] MEDS: Lexapro 10 MG PO SCH (10:13)
[2019-03-13] MEDS: NEURONTIN 300 MG PO SCH (10:14)
[2019-03-13] MEDS: FEOSOL 325 MG PO SCH (10:14)
[2019-03-13] MEDS: xanAX 0.5 MG PO SCH (10:14)
[2019-03-13] MEDS: Lasix 40 MG PO SCH (10:15)
[2019-03-13] MEDS: Apresoline 25 MG TABLET PO SCH (10:15)
[2019-03-13] MEDS: Pepcid 20 MG PO SCH (10:15)
[2019-03-13] MEDS: COREG 12.5 MG PO SCH (10:15)
[2019-03-13 12:54] VITALS: BP 152/70; PULSE 73; O2SAT 95
[2019-03-14 11:37] LABS: Source: Feces
[2019-03-14 14:13] LABS: Giardia Antigen EIA Negative (Negative)
== END 2019-03-13 13:10 | disposition home or self-care (01) | DRG 390 ==
LOC: ED 16:43 → MED SURG 20:12
PROVIDERS: ADMIT Family Medicine; ATTEND Family Medicine
DX: K56.600 Partial intestinal obstruction, unspecified as to cause (principal); K43.2 Incisional hernia without obstruction or gangrene; I50.9 Heart failure, unspecified; J44.9 Chronic obstructive pulmonary disease, unspecified; Z79.899 Other long term (current) drug therapy; R09.02 Hypoxemia; Z99.81 Dependence on supplemental oxygen
CPT/HCPCS: 36000; 36415; 74177; 80053; 83690; 85025; 87177; 87209; 94640; 94760; 96360; 96374; 96375; 99285; J1170; J2270; J2405; A9270-GY

== ENCOUNTER 2021-11-15 16:25 | Emergency (ER) | payer OTHER ==
[2021-11-15] MEDS ORDERED: PERCOCET TABLET 5/325MG PO STA (17:14)
[2021-11-15] MEDS ORDERED: PERCOCET TABLET 5/325MG ONE (17:26)
[2021-11-15 17:28] VITALS: BP 137/63; PULSE 116; O2SAT 97
--- NOTE | 2021-11-15 18:02 | ERPHSYRPT ---
- History of Present Illness Time Seen by Provider: 11/15/21 16:41 Source: patient Exam Limitations: no limitations Patient Subjective Stated Complaint: Left foot injury Triage Nursing Assessment: Patient brought back to ED per w/c and transferred to bed with assist of 1. Patient A+O x3. Patient's skin pink, warm and dry. Patient complains of left foot/ankle pain after falling today on uneven pavement. Patient complains of left foot pain /. Left foot noted to be bruised and swollen. Physician History: 66 years old female presented in the ER after she tripped and bent her left ankle/foot. She is complaining of severe sharp shooting pain with swelling on dorsum of foot. Minimal movement produced severe pain and no significant relieving factors. also have some abrasion on the right elbow and knee but no p ain. Up-to-date with tetanus. Did not hit her head or loss of consciousness. Method of Injury: fell, twisted Occurred: this afternoon Quality: sharpness Severity of Pain-Max: severe Severity of Pain-Current: severe Lower Extremities Pain: foot: left, ankle: left Modifying Factors: Improves With: immobilization. Worsens With: movement Associated Symptoms: unable to bear weight Allergies/Adverse Reactions: No Known Drug Allergies Allergy (Verified 11/15/21 17:20) Home Medications: Escitalopram Oxalate [Lexapro] 20 mg PO DAILY 03/01/15 [History] Gabapentin 300 mg PO BID 03/01/15 [History] Ferrous Sulfate 325 mg PO BID 09/26/15 [History] Budesonide/Formoterol Fumarate [Symbicort 160-4.5 Mcg Inhaler] 6 gm IH BID 04/05/16 [History] Potassium Chloride Tab* [Klor Con] 20 meq PO BID 10/03/17 [History] ALPRAZolam 1 MG [Xanax 1 mg] 0.5 mg PO TID 12/21/18 [History] Carvedilol 12.5 mg [Coreg 12.5 mg] 12.5 mg PO BID 12/21/18 [History] Furosemide [Lasix] 40 mg PO BID 12/21/18 [History] Hydralazine HCl 10 mg PO BID 12/21/18 [History] Trazodone HCl 50 mg [Desyrel 50 mg] 150 mg PO HS 12/21/18 [History] Polyethylene Glycol 3350 17 gm [Miralax Powder 17GM PACKET] 17 gm PO DAILY 02/01/19 [History] Simvastatin 10 mg [Zocor 10MG] 10 mg PO QPM 02/01/19 [History] Famotidine [Pepcid] 40 mg PO DAILY 02/06/19 [History] Hx Tetanus, Diphtheria Vaccination/Date Given: Yes Hx Influenza Vaccination/Date Given: No Hx Pneumococcal Vaccination/Date Given: Yes Immunizations Up to Date: Yes Travel Risk - International Travel Have you traveled outside of the country in past 3 weeks: No - Coronavirus Screening Are you exhibiting any of the following symptoms?: No Close contact with a COVID-19 positive Pt in past 14-21 Days: No - Vaccine Status Have you recieved a Covid-19 vaccination: No - Review of Systems Constitutional: No Symptoms Eyes: No Symptoms Ears, Nose, & Throat: No Symptoms Respiratory: No Symptoms Cardiac: No Symptoms Abdominal/Gastrointestinal: No Symptoms Genitourinary Symptoms: No Symptoms Musculoskeletal: Fall, Injury, Joint Pain, Joint Swelling Skin: No Symptoms Neurological: No Symptoms Endocrine: No Symptoms Hematologic/Lymphatic: No Symptoms - Past Medical History Pertinent Past Medical History: Yes Neurological History: Seizures ENT History: No Pertinent History Cardiac History: Hypertension Respiratory History: COPD, Pneumonia Endocrine Medical History: No Pertinent History Musculoskeletal History: Osteoarthritis GI Medical History: Gallbladder Disease, Hernia, Other History: Renal Disease Psycho-Social History: Anxiety, Depression Female Reproductive Disorders: No Pertinent History Other Medical History: PERF BOWEL 06/2013. pt states she had a seizure because she ran out of xanax, pt states she does not remember it, [facility] Pt states that her kidneys leak protein. - Past Surgical History Past Surgical History: Yes Neuro Surgical History: No Pertinent History Cardiac: No Pertinent History Respiratory: No Pertinent History Gastrointestinal: Cholecystectomy, Colon Resection Genitourinary: No Pertinent History Musculoskeletal: No Pertinent History Female Surgical History: No Pertinent History Other Surgical History: colon resection in 2013 - Social History Smoking Status: Former smoker How long have you smoked: 35 Exposure to second hand smoke: No Drug Use: none Patient Lives Alone: No - Nursing Vital Signs Nursing Vital Signs: Initial Vital Signs Temperature 97.8 F 11/15/21 17:20 Pulse Rate 116 H 11/15/21 17:20 Respiratory Rate 18 11/15/21 17:20 Blood Pressure 137/63 11/15/21 17:20 O2 Sat by Pulse Oximetry 97 11/15/21 17:20 Pain Scale Pain Intensity 10 - Physical Exam General Appearance: no apparent distress, alert Eyes, Ears, Nose, Throat Exam: normal ENT inspection Neck Exam: normal inspection, full range of motion Cardiovascular/Respiratory Exam: chest non-tender, normal breath sounds, regular rate/rhythm Back Exam: normal inspection, normal range of motion Hips Exam: bilateral: non-tender, normal inspection, normal range of motion Legs Exam: bilateral leg: non-tender, normal inspection, normal range of motion Knees Exam: right knee: soft tissue tenderness (Abrasion) Ankle Exam: left ankle: pain, soft tissue tenderness, swelling Foot Exam: left foot: bone tenderness, pain, soft tissue tenderness, swelling (Dorsum of foot) Neuro/Tendon Exam: normal sensation, normal motor functions, normal tendon functions Mental Status Exam: alert, oriented x 3, cooperative Skin Exam: normal color SpO2 Interpretation: normal SpO2: 97 O2 Delivery: Room Air Ordered Tests: Active Orders 24 hr Category Date Time Status ANKLE (3 VIEWS) Stat Exams 11/15/21 17:10 Taken FOOT (MINIMUM 3 VIEWS) Stat Exams 11/15/21 17:10 Taken Medication Summary Discontinued Medications Generic Name Dose Route Start Last Admin Trade Name Tanoq PRN Reason Stop Dose Admin Oxycodone/Acetaminophen 1 tab 11/15/21 17:14 11/15/21 17:28 Oxycodone Hcl/Apap 5 Mg/325 Mg Tablet PO 11/15/21 17:15 1 tab STAT STA Administration Oxycodone/Acetaminophen Confirm 11/15/21 17:26 Oxycodone Hcl/Apap 5 Mg/325 Mg Tablet Administered 11/15/21 17:27 Dose 1 tab .ROUTE .STK-MED ONE - Progress Progress: improved, pain not gone completely Progress Note: 11/15/21 18:04 She is given Percocet for symptomatic relief, on reevaluation feeling better. Has fracture fifth metatarsal base. Placed in posterior splint Ortho-Glass by RN. Nonweightbearing and outpatient follow-up with podiatry for reevaluation. Counseled pt/family regarding: diagnosis, need for follow-up, rad results - Departure Departure Disposition: Home Clinical Impression: Foot fracture, left, Fall Condition: Stable Critical Care Time: No Referrals: VALENCIA LOPEZ [Primary Care Provider] - Follow Up with PCP/3 days GENARO CORLEY DPM [ACTIVE STAFF] - Follow up/PCP as directed (In 3 days for reevaluation) Instructions: Foot Fracture (DC), Foot Sprain (DC) Additional Instructions: Take pain medications as needed. Nonweightbearing. Follow-up with podiatry for reevaluation. Intermittent ice application. Return to ER for any worsening. Prescriptions: Hydrocodone/Acetaminophen [Hydrocodone-Acetamin 5-325 mg] 1 tab PO Q6HPRN PRN 3 Days #12 tablet MDD 4 PRN Reason: Pain
--- NOTE | 2021-11-15 22:22 | XRAY ---
Indication: Pain and swelling following fall. Comparison: None 3 nonweightbearing views left foot demonstrates nondisplaced cortical fracture base 5th metatarsal with soft tissue swelling. Incidental osteopenia. Remaining foot unremarkable.
--- NOTE | 2021-11-15 22:22 | XRAY ---
Indication: Pain and swelling following fall. Comparison: None 3 view left ankle demonstrates mild osteopenia. No other bony, articular, or soft tissue abnormalities.
== END 2021-11-15 18:30 | disposition home or self-care (01) ==
LOC: ED 16:25
DX: S92.352A Displaced fracture of fifth metatarsal bone, left foot, initial encounter for closed fracture (principal); W01.0XXA Fall on same level from slipping, tripping and stumbling without subsequent striking against object, initial encounter; M79.672 Pain in left foot; I10 Essential (primary) hypertension; J44.9 Chronic obstructive pulmonary disease, unspecified; Z79.899 Other long term (current) drug therapy; Z28.310 Unvaccinated for COVID-19; Z79.891 Long term (current) use of opiate analgesic
CPT/HCPCS: 29515; 73610; 73630; 99283; A9270-GY

== ENCOUNTER 2024-04-25 18:38 | Emergency (ER) | payer MEDICARE, OTHER ==
--- NOTE | 2024-04-25 19:47 | ERPHSYRPT ---
- History of Present Illness Time Seen by Provider: 04/25/24 19:40 Source: patient, family Exam Limitations: clinical condition Physician History: This is a 68-year-old white female patient brought to the emergency department by family member by private vehicle. Patient's primary care provider is Dr. Arias. Patient's primary complaint is shortness of breath. Patient also ran out of home oxygen and her tank. Patient has a history of COPD and ordinarily wears 5 L of oxygen via nasal cannula. Here in the emergency department tonight, her oxygen saturation levels 98% on 3 L of oxygen via nasal cannula. Patient has no chest pain. Patient also has a productive cough of thick yellowish sputum. Patient has not felt well over the last week. Patient smokes a half a pack of tobacco cigarettes a day. Patient has a history of pseudoseizures, hypertension, osteoarthritis, anxiety/depression, hyperlipidemia and chronic renal disease. Timing/Duration: week(s) (1), worse Possible Cause: occasional episodes Modifying Factors: Improves With: coughing, oxygen, rest Associated Symptoms: anxiety, cough, No chest pain/discomfort Allergies/Adverse Reactions: No Known Drug Allergies Allergy (Verified 04/25/24 19:49) Home Medications: Escitalopram Oxalate [Lexapro] 20 mg PO DAILY 03/01/15 [History] Gabapentin 300 mg PO BID 03/01/15 [History] Ferrous Sulfate 325 mg PO BID 09/26/15 [History] Budesonide/Formoterol Fumarate [Symbicort 160-4.5 Mcg Inhaler] 6 gm IH BID 04/05/16 [History] Potassium Chloride Tab* [Klor Con] 20 meq PO BID 10/03/17 [History] ALPRAZolam 1 MG [Xanax 1 mg] 0.5 mg PO TID 12/21/18 [History] Carvedilol 12.5 mg [Coreg 12.5 mg] 12.5 mg PO BID 12/21/18 [History] Furosemide [Lasix] 40 mg PO BID 12/21/18 [History] Hydralazine HCl 10 mg PO BID 12/21/18 [History] Trazodone HCl 50 mg [Desyrel 50 mg] 150 mg PO HS 12/21/18 [History] Polyethylene Glycol 3350 17 gm [Miralax Powder 17GM PACKET] 17 gm PO DAILY 02/01/19 [History] Simvastatin 10 mg [Zocor 10MG] 10 mg PO QPM 02/01/19 [History] Famotidine [Pepcid] 40 mg PO DAILY 02/06/19 [History] Hx Tetanus, Diphtheria Vaccination/Date Given: Yes Hx Influenza Vaccination/Date Given: No Hx Pneumococcal Vaccination/Date Given: Yes Travel Risk - International Travel Have you traveled outside of the country in past 3 weeks: No - Emerging Infectious Disease Are you exhibiting symptoms associated with any current EIDs: Yes Symptoms: Cough: New Onset, Shortness of Breath - Review of Systems Constitutional: No Symptoms Eyes: No Symptoms Ears, Nose, & Throat: No Symptoms Respiratory: Cough, Dyspnea Cardiac: No Symptoms Abdominal/Gastrointestinal: No Symptoms Genitourinary Symptoms: No Symptoms Musculoskeletal: No Symptoms Skin: No Symptoms Neurological: No Symptoms Psychological: No Symptoms Endocrine: No Symptoms Hematologic/Lymphatic: No Symptoms Immunological/Allergic: No Symptoms All Other Systems: Reviewed and Negative - Past Medical History Pertinent Past Medical History: Yes Neurological History: Seizures ENT History: No Pertinent History Cardiac History: Hypertension Respiratory History: COPD, Pneumonia Endocrine Medical History: No Pertinent History Musculoskeletal History: Osteoarthritis GI Medical History: Gallbladder Disease, Hernia, Other History: Renal Disease Psycho-Social History: Anxiety, Depression Female Reproductive Disorders: No Pertinent History Other Medical History: PERF BOWEL 06/2013. pt states she had a seizure because she ran out of xanax, pt states she does not remember it, [facility] Pt states that her kidneys leak protein. - Past Surgical History Past Surgical History: Yes Neuro Surgical History: No Pertinent History Cardiac: No Pertinent History Respiratory: No Pertinent History Gastrointestinal: Cholecystectomy, Colon Resection Genitourinary: No Pertinent History Musculoskeletal: No Pertinent History Female Surgical History: No Pertinent History Other Surgical History: colon resection in 2013 - Social History Smoking Status: Former smoker How long have you smoked: 35 Exposure to second hand smoke: No Drug Use: none Patient Lives Alone: No - Nursing Vital Signs Nursing Vital Signs: Initial Vital Signs Temperature 98.3 F 04/25/24 19:34 Pulse Rate 62 04/25/24 19:34 Respiratory Rate 25 H 04/25/24 19:34 Blood Pressure 151/92 04/25/24 19:34 O2 Sat by Pulse Oximetry 98 04/25/24 19:34 Pain Scale Pain Intensity 4 - Physical Exam General Appearance: no apparent distress, alert, anxiety Eye Exam: PERRL/EOMI, eyes nml inspection Ears, Nose, Throat Exam: hearing grossly normal, normal ENT inspection, normal pharynx Neck Exam: normal inspection, non-tender, supple, full range of motion Respiratory Exam: diminished breath sounds (Bilateral and diffuse), No chest tenderness, No respiratory distress, No accessory muscle use, No wheezing, No stridor Cardiovascular/Chest Exam: normal heart sounds, regular rate/rhythm Abdominal/Gastrointestinal Exam: soft, normal bowel sounds, No tenderness Rectal Exam: not done Extremity Exam: non-tender, normal range of motion, normal inspection Neurologic Exam: alert, oriented x 3, cooperative, resistance brazer II-XII nml as tested, nml cerebellar function, nml station & gait, sensation nml Skin Exam: normal color, warm, dry Lymphatic Exam: No adenopathy SpO2 Interpretation: normal O2 Delivery: Nasal Cannula (3 L of oxygen) - Course Nursing assessment & vital signs reviewed: Yes EKG Interpreted by Me: RATE (85), Sinus Rhythm, NORMAL AXIS, NORMAL INTERVALS, NORMAL QRS, Other (QTc is 473. No acute ischemia on today's twelve-lead EKG.) Ordered Tests: Active Orders 24 hr Category Date Time Status [facility] Director STAT Care 04/25/24 19:48 Active EKG-ER Only STAT Care 04/25/24 19:47 Active IV Insertion STAT Care 04/25/24 19:47 Active Pulse Oximetry (ED) STAT Care 04/25/24 19:47 Active CHEST 1 VIEW (PORTABLE) Stat Exams 04/25/24 19:47 Taken BLOOD CULTURE Stat Lab 04/25/24 20:08 Received CBC W DIFF Stat Lab 04/25/24 19:55 Completed CMP Stat Lab 04/25/24 19:55 Completed Lactic Acid Stat Lab 04/25/24 20:54 Completed MAGNESIUM Stat Lab 04/25/24 19:55 Completed NT PRO BNPII Stat Lab 04/25/24 20:00 Completed TROPONIN Q4H Lab 04/25/24 19:55 Completed TROPONIN Q4H Lab 04/25/24 22:00 Completed TROPONIN Q4H Lab 04/26/24 00:00 Ordered TROPONIN Q4H Lab 04/26/24 04:00 Ordered Respiratory Therapy Assessment DAILY RT 04/25/24 20:37 Active Respiratory Therapy Consult ONCE RT 04/25/24 20:24 Completed Medication Summary Discontinued Medications Generic Name Dose Route Start Last Admin Trade Name Whit PRN Reason Stop Dose Admin Acetaminophen 650 mg 04/25/24 21:23 04/25/24 21:28 Acetaminophen 325 Mg Tablet PO 04/25/24 21:24 650 mg STAT ONE Administration Acetaminophen Confirm 04/25/24 21:27 Acetaminophen 325 Mg Tablet Administered 04/25/24 21:28 Dose 650 mg .ROUTE .STK-MED ONE Albuterol/Ipratropium 3 ml 04/25/24 20:24 04/25/24 20:37 Ipratropium/Albuterol Sulfate 3 Ml Ampul.Neb IH 04/25/24 20:25 3 ml STAT ONE Administration Albuterol/Ipratropium Confirm 04/25/24 20:32 Ipratropium/Albuterol Sulfate 3 Ml Ampul.Neb Administered 04/25/24 20:33 Dose 3 ml IH .STK-MED ONE Methylprednisolone Sodium 0 mg 04/25/24 21:39 04/25/24 21:46 Succinate 125 mg/ Sterile IV 04/25/24 21:40 125 mg Water 2 ml STAT ONE Administration Ceftriaxone Sodium 1 gm in 100 mls @ 200 mls/hr 04/25/24 21:36 04/25/24 22:18 Rocephin 1 Gm / 100 Ml Nacl IV 04/25/24 22:05 Infused STAT ONE Infusion Ceftriaxone Sodium Confirm 04/25/24 21:43 Rocephin 1 Gm / 100 Ml Nacl Administered 04/25/24 21:44 Dose 1 gm in 100 mls @ ud IV .STK-MED ONE Methylprednisolone Sodium Succinate Confirm 04/25/24 21:43 Methylprednis Sod Succ 125 Mg/2 Ml Vial Administered 04/25/24 21:44 Dose 125 mg .ROUTE .STK-MED ONE Sterile Water Confirm 04/25/24 21:43 Water For Injection,Sterile 10 Ml Vial Administered 04/25/24 21:44 Dose 10 ml IJ .STK-MED ONE Lab/Rad Data: Laboratory Result Diagrams 04/25/24 19:55 04/25/24 19:55 Laboratory Results 04/25/24 04/25/24 04/25/24 Range/Units 22:00 20:54 20:10 WBC (3.98-10.04) x10^3/uL RBC (3.93-5.22) x10^6/uL Hgb (11.2-15.7) g/dL Hct (34.1-44.9) % MCV (79.4-94.8) fL MCH (25.6-32.2) pg MCHC (32.2-35.5) g/dL RDW (11.7-14.4) % Plt Count (182-369) x10^3/uL MPV (9.4-12.3) fL Gran % (34.0-71.1) % Immature Gran % (Auto) (0.001-0.429) % Nucleat RBC Rel Count (0.00-0.2) % Eos # (Auto) (0.04-0.36) x10^3/uL Immature Gran # (Auto) (0.001-0.031) x10^3u/L Absolute Lymphs (auto) (1.18-3.74) x10^3/uL Absolute Monos (auto) (0.24-0.86) x10^3/uL Absolute Nucleated RBC (0.00-0.012) x10^3u/L Lymphocytes % (19.3-51.7) % Monocytes % (4.7-12.5) % Eosinophils % (0.7-5.8) % Basophils % (0.1-1.2) % Absolute Granulocytes (1.56-6.13) x10^3/uL Basophils # (0.01-0.08) x10^3/uL Sodium (135-145) mmol/L Potassium (3.5-5.1) mmol/L Chloride (98-107) mmol/L Carbon Dioxide (22-30) mmol/L Anion Gap (5-15) MEQ/L BUN (7-17) mg/dL Creatinine (0.52-1.04) mg/dL Estimated GFR ML/MIN Glucose (74-106) mg/dL Lactic Acid 1.0 (0.4-2.0) Calcium (8.4-10.2) mg/dL Magnesium (1.6-2.3) mg/dL Total Bilirubin (0.2-1.3) mg/dL AST (14-36) U/L ALT (0-35) U/L Alkaline Phosphatase (38-126) U/L Troponin I 0.018 (0.000-0.033) ng/mL NT-Pro-B Natriuret Pep (<300) pg/mL Serum Total Protein (6.3-8.2) g/dL Albumin (3.5-5.0) g/dL Influenza Type A Ag NEGATIVE (NEGATIVE) Influenza Type B Ag NEGATIVE (NEGATIVE) RSV (PCR) NEGATIVE (NEGATIVE) SARS-CoV-2 (PCR) NEGATIVE (NEGATIVE) 04/25/24 04/25/24 04/25/24 Range/Units 20:00 19:55 19:55 WBC (3.98-10.04) x10^3/uL RBC (3.93-5.22) x10^6/uL Hgb (11.2-15.7) g/dL Hct (34.1-44.9) % MCV (79.4-94.8) fL MCH (25.6-32.2) pg MCHC (32.2-35.5) g/dL RDW (11.7-14.4) % Plt Count (182-369) x10^3/uL MPV (9.4-12.3) fL Gran % (34.0-71.1) % Immature Gran % (Auto) (0.001-0.429) % Nucleat RBC Rel Count (0.00-0.2) % Eos # (Auto) (0.04-0.36) x10^3/uL Immature Gran # (Auto) (0.001-0.031) x10^3u/L Absolute Lymphs (auto) (1.18-3.74) x10^3/uL Absolute Monos (auto) (0.24-0.86) x10^3/uL Absolute Nucleated RBC (0.00-0.012) x10^3u/L Lymphocytes % (19.3-51.7) % Monocytes % (4.7-12.5) % Eosinophils % (0.7-5.8) % Basophils % (0.1-1.2) % Absolute Granulocytes (1.56-6.13) x10^3/uL Basophils # (0.01-0.08) x10^3/uL Sodium 135 (135-145) mmol/L Potassium 4.0 (3.5-5.1) mmol/L Chloride 86 L (98-107) mmol/L Carbon Dioxide 43 H (22-30) mmol/L Anion Gap 10.0 (5-15) MEQ/L BUN 16 (7-17) mg/dL Creatinine 0.99 (0.52-1.04) mg/dL Estimated GFR 62.9 ML/MIN Glucose 109 H (74-106) mg/dL Lactic Acid (0.4-2.0) Calcium 9.0 (8.4-10.2) mg/dL Magnesium 1.7 (1.6-2.3) mg/dL Total Bilirubin 0.30 (0.2-1.3) mg/dL AST 28 (14-36) U/L ALT 23 (0-35) U/L Alkaline Phosphatase 103 (38-126) U/L Troponin I 0.018 (0.000-0.033) ng/mL NT-Pro-B Natriuret Pep 697 (<300) pg/mL Serum Total Protein 6.6 (6.3-8.2) g/dL Albumin 3.9 (3.5-5.0) g/dL Influenza Type A Ag (NEGATIVE) Influenza Type B Ag (NEGATIVE) RSV (PCR) (NEGATIVE) SARS-CoV-2 (PCR) (NEGATIVE) 04/25/24 Range/Units 19:55 WBC 9.5 (3.98-10.04) x10^3/uL RBC 4.37 (3.93-5.22) x10^6/uL Hgb 12.5 (11.2-15.7) g/dL Hct 39.6 (34.1-44.9) % MCV 90.6 (79.4-94.8) fL MCH 28.6 (25.6-32.2) pg MCHC 31.6 L (32.2-35.5) g/dL RDW 14.2 (11.7-14.4) % Plt Count 344 (182-369) x10^3/uL MPV 9.5 (9.4-12.3) fL Gran % 80.4 H (34.0-71.1) % Immature Gran % (Auto) 0.4 (0.001-0.429) % Nucleat RBC Rel Count 0.0 (0.00-0.2) % Eos # (Auto) 0.50 H (0.04-0.36) x10^3/uL Immature Gran # (Auto) 0.04 H (0.001-0.031) x10^3u/L Absolute Lymphs (auto) 0.74 L (1.18-3.74) x10^3/uL Absolute Monos (auto) 0.55 (0.24-0.86) x10^3/uL Absolute Nucleated RBC 0.00 (0.00-0.012) x10^3u/L Lymphocytes % 7.8 L (19.3-51.7) % Monocytes % 5.8 (4.7-12.5) % Eosinophils % 5.3 (0.7-5.8) % Basophils % 0.3 (0.1-1.2) % Absolute Granulocytes 7.60 H (1.56-6.13) x10^3/uL Basophils # 0.03 (0.01-0.08) x10^3/uL Sodium (135-145) mmol/L Potassium (3.5-5.1) mmol/L Chloride (98-107) mmol/L Carbon Dioxide (22-30) mmol/L Anion Gap (5-15) MEQ/L BUN (7-17) mg/dL Creatinine (0.52-1.04) mg/dL Estimated GFR ML/MIN Glucose (74-106) mg/dL Lactic Acid (0.4-2.0) Calcium (8.4-10.2) mg/dL Magnesium (1.6-2.3) mg/dL Total Bilirubin (0.2-1.3) mg/dL AST (14-36) U/L ALT (0-35) U/L Alkaline Phosphatase (38-126) U/L Troponin I (0.000-0.033) ng/mL NT-Pro-B Natriuret Pep (<300) pg/mL Serum Total Protein (6.3-8.2) g/dL Albumin (3.5-5.0) g/dL Influenza Type A Ag (NEGATIVE) Influenza Type B Ag (NEGATIVE) RSV (PCR) (NEGATIVE) SARS-CoV-2 (PCR) (NEGATIVE) - Progress Progress: improved, re-examined Air Movement: fair Progress Note: 04/25/24 20:15 My medical decision making and the assignment of at least moderate complexity to this patient's medical issue today is based on review of the patient's past medical history, review the patient's medication list, reviewed patient drug allergy list, history present illness and physical findings on examination. The workup in this patient includes placement of a intravenous line, CBC, CMP, lactic acid level, BNP, troponin level, twelve-lead EKG, chest x-ray, viral swabs and respiratory therapy evaluation. Differential diagnosis includes but is not limited to upper respiratory infection, pneumonia, viral illness, COPD exacerbation, CHF exacerbation, myocardial infarction, arrhythmias 04/25/24 21:37 I interpreted the patient's laboratory data results. Based on the laboratory data results, there are no acute, emergent medical issues. I interpreted the preliminary chest x-ray and compared to 2 prior portable chest x-rays (January 2019, January 2018). Today's chest x-ray does not show cardiomegaly. There is no obvious fluid when compared to the prior studies. There is a question of right base and left perihilar infiltrate versus atelectasis on today's chest x-ray. 04/25/24 22:35 I interpreted the patient's repeat, second, twelve-lead EKG that was performed on 04/25/2024 at 2212. The heart rate is 84 bpm. It is normal sinus rhythm. There is evidence of prolonged QT interval. There is supraventricular bigeminy. There is no acute ischemia on today's twelve-lead EKG. QTc is 507. Patient is happy she is smiling and laughing and wants to go home. She denies chest pain. We are awaiting the repeat troponin level. If this is normal she may be discharged home. 04/25/24 22:38 Repeat troponin level is unchanged and is normal. Blood Culture(s) Obtained: Yes Antibiotics given: Yes Counseled pt/family regarding: lab results, diagnosis, rad results Medical Desision Making - Independent Historian Additional History obtained from: Family - Diagnostic Testing Diagnostic test were ordered, analyzed, and reviewed by me: Yes Radiological Interpretation: Interpreted by me, Teleradiologist Report - Departure Departure Disposition: Home Clinical Impression: Infiltrate of lung present on chest x-ray Condition: Stable Critical Care Time: No Referrals: VALENCIA ARIAS [Primary Care Provider] - Follow up/PCP as directed Additional Instructions: Stop smoking. Continue medications and oxygen as prescribed. Take your antibiotics as prescribed. Call your primary care provider tomorrow, 04/26/2024, to make arranges for follow-up appointment for further evaluation management. Prescriptions: Cefdinir 300 mg PO BID #14 cap
[2024-04-25 19:48] VITALS: TEMP 98.3
[2024-04-25 20:13] LABS: BASOPHIL % 0.3 % (0.1-1.2); Basophil (Absolute #) 0.03 x10^3/uL (0.01-0.08); Eosinophil % 5.3 % (0.7-5.8); Hematocrit 39.6 % (34.1-44.9); Hemoglobin 12.5 g/dL (11.2-15.7); IMMATURE GRAN # 0.04 x10^3u/L (0.001-0.031); IMMATURE GRAN % 0.4 % (0.001-0.429); Lymphocyte (Absolute #) 0.74 x10^3/uL (1.18-3.74); Lymphocytes % 7.8 % (19.3-51.7); Mean Cell Volume 90.6 fL (79.4-94.8); Mean Corpuscular Hemoglobin 28.6 pg (25.6-32.2); Mean Corpuscular Hgb Concent. 31.6 g/dL (32.2-35.5); Mean Platelet Volume 9.5 fL (9.4-12.3); Monocyte (Absolute #) 0.55 x10^3/uL (0.24-0.86); Monocytes % 5.8 % (4.7-12.5); Neutrophil % 80.4 % (34.0-71.1); Platelet Count 344 x10^3/uL (182-369); Red Blood Count 4.37 x10^6/uL (3.93-5.22); Red Cell Distribution Width 14.2 % (11.7-14.4); White Blood Count 9.5 x10^3/uL (3.98-10.04)
[2024-04-25 20:28] LABS: ALBUMIN 3.9 g/dL (3.5-5.0); BILIRUBIN,TOTAL 0.3 mg/dL (0.2-1.3); Creatinine 1 0.99 mg/dL (0.52-1.04); EST GLOMERULAR FILTRATION RATE 62.9 ML/MIN; MAGNESIUM 1.7 mg/dL (1.6-2.3); Total Protein 6.6 g/dL (6.3-8.2)
[2024-04-25] MEDS ORDERED: DUONEB 0.5-3 MG/3 ml Neb IH ONE (20:32)
[2024-04-25] MEDS: DUONEB 0.5-3 MG/3 ml Neb IH ONE (20:37)
[2024-04-25 20:52] LABS: INFLUENZA A NEGATIVE (NEGATIVE); INFLUENZA B NEGATIVE (NEGATIVE); RESPIRATORY SYNCTIAL VIRUS NEGATIVE (NEGATIVE); SARS-CoV-2 Xpert Express NEGATIVE (NEGATIVE)
[2024-04-25] MEDS ORDERED: TYLENOL 325 MG ONE (21:27)
[2024-04-25] MEDS: TYLENOL 325 MG PO ONE (21:28)
[2024-04-25] MEDS ORDERED: ROCEPHIN 1 GM / 100 ML NaCl 1 GM/100 ML IVPB IV ONE (21:43)
[2024-04-25] MEDS ORDERED: solu-MEDROL ONE (21:43)
[2024-04-25] MEDS ORDERED: Sterile H2O 10 ml IJ ONE (21:43)
[2024-04-25] MEDS: solu-MEDROL 125 MG, Sterile H2O 10 ml 2 ML IV ONE (21:46)
[2024-04-25] MEDS: ROCEPHIN 1 GM / 100 ML NaCl 1 GM/100 ML IVPB IV ONE (21:46)
[2024-04-25 23:01] VITALS: BP 158/61; RESP 18
[2024-04-25 23:03] VITALS: PULSE 71; O2SAT 100
--- NOTE | 2024-04-26 09:10 | XRAY ---
Indication: Short of breath. Comparison: February 05, 2019 Portable chest better inflated again with chronic blunting right costophrenic angle. Remaining heart and lungs unremarkable. Bony thorax intact again with osteopenia and mild degenerative changes. No new/acute findings.
== END 2024-04-25 23:11 | disposition home or self-care (01) ==
LOC: ED 18:38
DX: R91.8 Other nonspecific abnormal finding of lung field (principal); R06.02 Shortness of breath; R05.9 Cough, unspecified; I12.9 Hypertensive chronic kidney disease with stage 1 through stage 4 chronic kidney disease, or unspecified chronic kidney disease; E78.5 Hyperlipidemia, unspecified; N18.9 Chronic kidney disease, unspecified; Z79.899 Other long term (current) drug therapy; Z72.0 Tobacco use; Z99.81 Dependence on supplemental oxygen
CPT/HCPCS: 0241U; 36415; 71045; 80053; 83605; 83735; 83880; 84484; 85025; 87040; 93005; 93041; 94640; 94760; 96374; 96375; 99285; 99284; J0696; J2919; A9270-GY

== ENCOUNTER 2024-05-10 21:15 | Observation (INO) | payer MEDICARE ==
[2024-05-10] MEDS ORDERED: Sterile H2O 10 ml IJ ONE (21:47)
[2024-05-10] MEDS ORDERED: solu-MEDROL ONE (21:48)
[2024-05-10] MEDS: solu-MEDROL 125 MG, Sterile H2O 10 ml 2 ML IV ONE (21:48)
--- NOTE | 2024-05-10 21:54 | ERPHSYRPT ---
- History of Present Illness Time Seen by Provider: 05/10/24 21:55 Source: patient Exam Limitations: no limitations Patient Subjective Stated Complaint: short of breath, anxious and constipated Triage Nursing Assessment: Pt brought back in wheelchair. Pt c/o shortness of breath, is extremely anxious and c/o constipation. Pt arrived on 2L n/c, O2 sats 95%. Lungs are diminished and tight thoughout ant and post/bilat. Left posterior upper lobe had scattered wheezes noted on inspiration. Pt continues to smoke about 1PPD per daughter. Heart tones reg. No edema noted. Pt has a large abd hernia. Pt's abd has active bs x4 quad, nontender. LBM was 2 weeks ago per pt. Physician History: 68-year-old female history of COPD presents to our emergency department for evaluation of shortness of breath. Patient is a current smoker. Patient wears oxygen at home 2 to 5 L depending on activity level. Patient's shortness of breath started yesterday progressively worse today. No associated chest pain. No nausea vomiting or diaphoresis. Patient added that she has been constipated for 2 weeks. Patient states she has a known ventral wall hernia. Patient concerned that the hernia is causing her constipation which is then causing her shortness of breath per patient. Patient otherwise feels well. [facility] at [facility]. They voiced no other complaints or concerns at this time. Portions of this note were created with voice recognition technology. There may be grammatical, spelling, punctuation or sound alike errors Timing/Duration: today Activities at Onset: activity Severity of Dyspnea-Max: moderate Severity of Dyspnea-Current: mild Possible Cause: occasional episodes Modifying Factors: Improves With: activity Associated Symptoms: cough Allergies/Adverse Reactions: No Known Drug Allergies Allergy (Verified 05/10/24 21:21) Home Medications: Escitalopram Oxalate [Lexapro] 20 mg PO DAILY 03/01/15 [History] Gabapentin 300 mg PO BID 03/01/15 [History] Budesonide/Formoterol Fumarate [Symbicort 160-4.5 Mcg Inhaler] 6 gm IH BID 04/05/16 [History] Potassium Chloride Tab* [Klor Con] 20 meq PO BID 10/03/17 [History] Carvedilol 12.5 mg [Coreg 12.5 mg] 12.5 mg PO BID 12/21/18 [History] Furosemide [Lasix] 40 mg PO BID 12/21/18 [History] Hydralazine HCl 10 mg PO TID 12/21/18 [History] Trazodone HCl 50 mg [Desyrel 50 mg] 150 mg PO HS 12/21/18 [History] Polyethylene Glycol 3350 17 gm [Miralax Powder 17GM PACKET] 17 gm PO DAILY 02/01/19 [History] Simvastatin 10 mg [Zocor 10MG] 10 mg PO QPM 02/01/19 [History] Hydroxyzine HCl 25 mg [Atarax 25 mg] 1 tab PO TID PRN PRN 05/10/24 [History] Hx Tetanus, Diphtheria Vaccination/Date Given: Yes Hx Influenza Vaccination/Date Given: No Hx Pneumococcal Vaccination/Date Given: Yes Travel Risk - International Travel Have you traveled outside of the country in past 3 weeks: No - Emerging Infectious Disease Are you exhibiting symptoms associated with any current EIDs: Yes Symptoms: Abdominal Pain, Shortness of Breath - Review of Systems Constitutional: No Symptoms, No Fever, No Chills Eyes: No Symptoms Ears, Nose, & Throat: No Symptoms Respiratory: No Symptoms, No Cough, No Dyspnea Cardiac: No Symptoms, No Chest Pain, No Edema, No Syncope Abdominal/Gastrointestinal: No Symptoms, No Abdominal Pain, No Nausea, No Vomiting, No Diarrhea Genitourinary Symptoms: No Symptoms, No Dysuria Musculoskeletal: No Symptoms, No Back Pain, No Neck Pain Skin: No Symptoms, No Rash Neurological: No Dizziness, No Focal Weakness, No Sensory Changes Psychological: No Symptoms Endocrine: No Symptoms Hematologic/Lymphatic: No Symptoms Immunological/Allergic: No Symptoms All Other Systems: Reviewed and Negative - Past Medical History Pertinent Past Medical History: Yes Neurological History: Seizures ENT History: Cataracts Cardiac History: High Cholesterol, Hypertension Respiratory History: COPD, Pneumonia Endocrine Medical History: No Pertinent History Musculoskeletal History: Osteoarthritis GI Medical History: Gallbladder Disease, Hernia, Other History: Renal Disease Psycho-Social History: Anxiety, Depression Female Reproductive Disorders: No Pertinent History Other Medical History: PERF BOWEL 06/2013. pt states she had a seizure because she ran out of [employer], pt states she does not remember it, [facility] Pt states that her kidneys leak protein. - Past Surgical History Past Surgical History: Yes Neuro Surgical History: No Pertinent History Cardiac: No Pertinent History Respiratory: No Pertinent History Gastrointestinal: Cholecystectomy, Colon Resection Genitourinary: No Pertinent History Musculoskeletal: No Pertinent History Female Surgical History: No Pertinent History Other Surgical History: colon resection in 2014 - Social History Smoking Status: Current every day smoker How long have you smoked: 50 years Exposure to second hand smoke: Yes Drug Use: none - Social Determinants of Health Will the patient participate in the screening: Declined to provide - Nursing Vital Signs Nursing Vital Signs: Initial Vital Signs Temperature 97.4 F 05/10/24 21:18 Pulse Rate 87 05/10/24 21:18 Respiratory Rate 20 05/10/24 21:18 Blood Pressure 173/78 05/10/24 21:18 O2 Sat by Pulse Oximetry 95 05/10/24 21:18 Pain Scale Pain Intensity 0 - Physical Exam General Appearance: no apparent distress, alert Eye Exam: PERRL/EOMI Neck Exam: normal inspection, supple Respiratory Exam: diminished breath sounds, rhonchi, wheezing Cardiovascular/Chest Exam: normal heart sounds, regular rate/rhythm Abdominal/Gastrointestinal Exam: soft, tenderness, distention (Abdomen slightly distended. Obvious ventral wall hernia. No rebound no peritoneal signs), No mass Extremity Exam: non-tender, normal range of motion, normal inspection, no calf tenderness, no pedal edema Neurologic Exam: alert, oriented x 3, cooperative, countersinker balance screw hole II-XII nml as tested, sensation nml, No motor deficits Skin Exam: normal color, warm, No dry Lymphatic Exam: No adenopathy SpO2 Interpretation: normal SpO2: 95 O2 Delivery: Room Air - Course Nursing assessment & vital signs reviewed: Yes EKG Interpreted by Me: RATE (76), Sinus Rhythm, NORMAL AXIS, NORMAL INTERVALS, NORMAL QRS - CT Exams Abdomen/Pelvis CT Interpretation: Tele-radiologist Report (Large ventral wall hernia, pleural effusion bilaterally, perinephric fat stranding bilaterally, left kidney cortical calcification) Ordered Tests: Active Orders 24 hr Category Date 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 05/10/24 21:45 Active EKG-ER Only STAT Care 05/10/24 21:44 Active IV Insertion STAT Care 05/10/24 21:44 Active Pulse Oximetry (ED) STAT Care 05/10/24 21:44 Active ABDOMEN AND PELVIS W/0 CONTRAS [CT] Stat Exams 05/11/24 00:02 Completed CHEST 1 VIEW (PORTABLE) Stat Exams 05/10/24 23:18 Completed BLOOD CULTURE Stat Lab 05/10/24 22:06 Received CBC W DIFF Stat Lab 05/10/24 21:55 Completed CMP Stat Lab 05/10/24 21:55 Completed D-DIMER QUANTITATIVE Stat Lab 05/10/24 22:06 Completed TROPONIN Q4H Lab 05/10/24 21:55 Completed TROPONIN Q4H Lab 05/11/24 01:45 Completed TROPONIN Q4H Lab 05/11/24 05:45 Ordered Respiratory Therapy Assessment DAILY RT 05/10/24 22:02 Active Transfer Order Routine Transfer 05/11/24 Ordered Medication Summary Discontinued Medications Generic Name Dose Route Start Last Admin Trade Name Freq PRN Reason Stop Dose Admin Albuterol/Ipratropium 3 ml 05/10/24 21:44 05/10/24 22:00 Ipratropium/Albuterol Sulfate 3 Ml Ampul.Neb IH 05/10/24 21:45 3 ml STAT ONE Administration Albuterol/Ipratropium Confirm 05/10/24 21:58 Ipratropium/Albuterol Sulfate 3 Ml Ampul.Neb Administered 05/10/24 21:59 Dose 3 ml IH .STK-MED ONE Methylprednisolone Sodium 0 mg 05/10/24 21:44 05/10/24 21:48 Succinate 125 mg/ Sterile IV 05/10/24 21:45 125 mg Water 2 ml STAT ONE Administration Hydralazine HCl 12.5 mg 05/11/24 00:20 05/11/24 00:44 Hydralazine Hcl 25 Mg Tablet PO 05/11/24 00:21 12.5 mg STAT ONE Administration Ceftriaxone Sodium 2 gm in 100 mls @ 200 mls/hr 05/10/24 23:58 05/11/24 00:12 Rocephin 2 Gm/100 Ml Nacl IV 05/11/24 00:27 200 mls/hr STAT ONE 200 mls/hr Administration Azithromycin 500 mg in 250 mls @ 250 mls/hr 05/10/24 23:58 05/11/24 00:55 Zithromax 500 Mg/ 250 Ml Nacl Premix IV 05/11/24 00:57 250 mls/hr STAT STA 250 mls/hr Administration Ceftriaxone Sodium Confirm 05/11/24 00:09 Rocephin 2 Gm/100 Ml Nacl Administered 05/11/24 00:10 Dose 2 gm in 100 mls @ ud IV .STK-MED ONE Azithromycin Confirm 05/11/24 00:37 Zithromax 500 Mg/ 250 Ml Nacl Premix Administered 05/11/24 00:38 Dose 500 mg in 250 mls @ ud IV .STK-MED ONE Methylprednisolone Sodium Succinate Confirm 05/10/24 21:48 Methylprednis Sod Succ 125 Mg/2 Ml Vial Administered 05/10/24 21:49 Dose 125 mg .ROUTE .STK-MED ONE Sterile Water Confirm 05/10/24 21:47 Water For Injection,Sterile 10 Ml Vial Administered 05/10/24 21:48 Dose 10 ml IJ .STK-MED ONE Lab/Rad Data: Laboratory Result Diagrams 05/10/24 21:55 05/10/24 21:55 Laboratory Results 05/11/24 05/10/24 05/10/24 Range/Units 01:45 22:06 21:55 WBC (3.98-10.04) x10^3/uL RBC (3.93-5.22) x10^6/uL Hgb (11.2-15.7) g/dL Hct (34.1-44.9) % MCV (79.4-94.8) fL MCH (25.6-32.2) pg MCHC (32.2-35.5) g/dL RDW (11.7-14.4) % Plt Count (182-369) x10^3/uL MPV (9.4-12.3) fL Gran % (34.0-71.1) % Immature Gran % (Auto) (0.001-0.429) % Nucleat RBC Rel Count (0.00-0.2) % Eos # (Auto) (0.04-0.36) x10^3/uL Immature Gran # (Auto) (0.001-0.031) x10^3u/L Absolute Lymphs (auto) (1.18-3.74) x10^3/uL Absolute Monos (auto) (0.24-0.86) x10^3/uL Absolute Nucleated RBC (0.00-0.012) x10^3u/L Lymphocytes % (19.3-51.7) % Monocytes % (4.7-12.5) % Eosinophils % (0.7-5.8) % Basophils % (0.1-1.2) % Absolute Granulocytes (1.56-6.13) x10^3/uL Basophils # (0.01-0.08) x10^3/uL D-Dimer 0.49 (0.0-0.50) mg/L Sodium (135-145) mmol/L Potassium (3.5-5.1) mmol/L Chloride (98-107) mmol/L Carbon Dioxide (22-30) mmol/L Anion Gap (5-15) MEQ/L BUN (7-17) mg/dL Creatinine (0.52-1.04) mg/dL Estimated GFR ML/MIN Glucose (74-106) mg/dL Calcium (8.4-10.2) mg/dL Total Bilirubin (0.2-1.3) mg/dL AST (14-36) U/L ALT (0-35) U/L Alkaline Phosphatase (38-126) U/L Troponin I < 0.012 (0.000-0.033) ng/mL Serum Total Protein (6.3-8.2) g/dL Albumin (3.5-5.0) g/dL Influenza Type A Ag NEGATIVE (NEGATIVE) Influenza Type B Ag NEGATIVE (NEGATIVE) RSV (PCR) NEGATIVE (NEGATIVE) SARS-CoV-2 (PCR) NEGATIVE (NEGATIVE) 05/10/24 05/10/24 05/10/24 Range/Units 21:55 21:55 21:55 WBC 9.8 (3.98-10.04) x10^3/uL RBC 3.63 L (3.93-5.22) x10^6/uL Hgb 10.4 L (11.2-15.7) g/dL Hct 33.7 L (34.1-44.9) % MCV 92.8 (79.4-94.8) fL MCH 28.7 (25.6-32.2) pg MCHC 30.9 L (32.2-35.5) g/dL RDW 15.4 H (11.7-14.4) % Plt Count 285 (182-369) x10^3/uL MPV 10.0 (9.4-12.3) fL Gran % 80.2 H (34.0-71.1) % Immature Gran % (Auto) 0.4 (0.001-0.429) % Nucleat RBC Rel Count 0.0 (0.00-0.2) % Eos # (Auto) 0.12 (0.04-0.36) x10^3/uL Immature Gran # (Auto) 0.04 H (0.001-0.031) x10^3u/L Absolute Lymphs (auto) 1.16 L (1.18-3.74) x10^3/uL Absolute Monos (auto) 0.61 (0.24-0.86) x10^3/uL Absolute Nucleated RBC 0.00 (0.00-0.012) x10^3u/L Lymphocytes % 11.8 L (19.3-51.7) % Monocytes % 6.2 (4.7-12.5) % Eosinophils % 1.2 (0.7-5.8) % Basophils % 0.2 (0.1-1.2) % Absolute Granulocytes 7.88 H (1.56-6.13) x10^3/uL Basophils # 0.02 (0.01-0.08) x10^3/uL D-Dimer (0.0-0.50) mg/L Sodium 140 (135-145) mmol/L Potassium 4.4 (3.5-5.1) mmol/L Chloride 95 L (98-107) mmol/L Carbon Dioxide 39 H (22-30) mmol/L Anion Gap 9.8 (5-15) MEQ/L BUN 10 (7-17) mg/dL Creatinine 0.65 (0.52-1.04) mg/dL Estimated GFR 97.0 ML/MIN Glucose 96 (74-106) mg/dL Calcium 8.7 (8.4-10.2) mg/dL Total Bilirubin 0.40 (0.2-1.3) mg/dL AST 20 (14-36) U/L ALT 28 (0-35) U/L Alkaline Phosphatase 73 (38-126) U/L Troponin I 0.014 (0.000-0.033) ng/mL Serum Total Protein 6.0 L (6.3-8.2) g/dL Albumin 3.6 (3.5-5.0) g/dL Influenza Type A Ag (NEGATIVE) Influenza Type B Ag (NEGATIVE) RSV (PCR) (NEGATIVE) SARS-CoV-2 (PCR) (NEGATIVE) - Progress Progress: improved Air Movement: good Progress Note: 68-year-old female history of COPD presents to our ED for evaluation of shortness of breath. On exam patient was coarse wheezing with diminished breath sounds bilaterally. Patient added that she has a abdominal hernia. Patient r equesting a CT scan as she reports that she has not had a bowel movement in 2 weeks. D-dimer negative. Troponin negative. Chest x-ray shows right lower lobe infiltrate. Blood cultures obtained. Antibiotics infused. Patient received Solu-Medrol and a breathing treatment. Symptoms improved but did not resolve. Patient currently on [address] abdomen pelvis shows some perinephric fat stranding. Ventral wall hernia. Otherwise no acute pathology patient will require hospitalization for further evaluation and treatment. Plan of care discussed with patient. She agrees to admission at [facility] for further evaluation and treatment. Portions of this note were created with voice recognition technology. There may be grammatical, spelling, punctuation or sound alike errors Complexity of problem addressed is moderate acute complicated. No critical care time. Complex of data reviewed and analyzed is extensive. Test ordered chest reviewed results analyzed and correlated clinically with history and physical exam. Management discussed with hospitalist who excepts admission to observation. Risk of complication and or risk of morbidity/mortality of patient management is high. Patient requires hospitalization for further evaluation and treatment. Vital stable. Time spent admit patient approximately 20 minutes. Plan of care established for shared decision making. No social determinants of health present to impede follow-up. Patient accepted by Dr. Moya at 2:43 AM Portions of this note were created with voice recognition technology. There may be grammatical, spelling, punctuation or sound alike errors 05/11/24 02:06 Blood Culture(s) Obtained: Yes Antibiotics given: Yes Counseled pt/family regarding: lab results, diagnosis, rad results - Departure Departure Disposition: Observation Clinical Impression: SOB (shortness of breath), Hypoxia, COPD exacerbation, Ventral wall hernia, Right lower lobe pulmonary infiltrate Condition: Stable Critical Care Time: No Referrals: VALENCIA LOPEZ [Primary Care Provider] - Follow up/PCP as directed Instructions: Chronic Obstructive Pulmonary Disease
[2024-05-10] MEDS ORDERED: DUONEB 0.5-3 MG/3 ml Neb IH ONE (21:58)
[2024-05-10] MEDS: DUONEB 0.5-3 MG/3 ml Neb IH ONE (22:00)
[2024-05-10 22:14] LABS: Absolute Neutrophil Ct (ANC) 7.88 x10^3/uL (1.56-6.13); BASOPHIL % 0.2 % (0.1-1.2); Basophil (Absolute #) 0.02 x10^3/uL (0.01-0.08); Eosinophil % 1.2 % (0.7-5.8); Eosinophil (Absolute #) 0.12 x10^3/uL (0.04-0.36); Hematocrit 33.7 % (34.1-44.9); Hemoglobin 10.4 g/dL (11.2-15.7); IMMATURE GRAN # 0.04 x10^3u/L (0.001-0.031); IMMATURE GRAN % 0.4 % (0.001-0.429); Lymphocyte (Absolute #) 1.16 x10^3/uL (1.18-3.74); Lymphocytes % 11.8 % (19.3-51.7); Mean Cell Volume 92.8 fL (79.4-94.8); Mean Corpuscular Hemoglobin 28.7 pg (25.6-32.2); Mean Corpuscular Hgb Concent. 30.9 g/dL (32.2-35.5); Monocyte (Absolute #) 0.61 x10^3/uL (0.24-0.86); Monocytes % 6.2 % (4.7-12.5); Neutrophil % 80.2 % (34.0-71.1); Platelet Count 285 x10^3/uL (182-369); Red Blood Count 3.63 x10^6/uL (3.93-5.22); Red Cell Distribution Width 15.4 % (11.7-14.4); White Blood Count 9.8 x10^3/uL (3.98-10.04)
[2024-05-10 22:26] LABS: ALBUMIN 3.6 g/dL (3.5-5.0); ANION GAP 9.8 MEQ/L (5-15); BILIRUBIN,TOTAL 0.4 mg/dL (0.2-1.3); Calcium 8.7 mg/dL (8.4-10.2); Creatinine 1 0.65 mg/dL (0.52-1.04); Potassium 4.4 mmol/L (3.5-5.1)
[2024-05-10 22:48] LABS: INFLUENZA A NEGATIVE (NEGATIVE); INFLUENZA B NEGATIVE (NEGATIVE); RESPIRATORY SYNCTIAL VIRUS NEGATIVE (NEGATIVE); SARS-CoV-2 Xpert Express NEGATIVE (NEGATIVE)
[2024-05-11] MEDS ORDERED: ROCEPHIN 2 GM/100 ML NACL 2 GM/100 ML IVPB IV ONE (00:09)
[2024-05-11] MEDS: ROCEPHIN 2 GM/100 ML NACL 2 GM/100 ML IVPB IV ONE (00:12)
[2024-05-11] MEDS ORDERED: Zithromax 500 MG/ 250 ML NaCl Premix 500 MG/250 ML IVPB IV ONE (00:37)
[2024-05-11] MEDS: Apresoline 25 MG TABLET PO ONE (00:44)
[2024-05-11] MEDS: Zithromax 500 MG/ 250 ML NaCl Premix 500 MG/250 ML IVPB IV STA (00:55)
--- NOTE | 2024-05-11 01:46 | XRAY ---
CLINICAL HISTORY: sob COMPARISON: None. TECHNIQUE: X-ray images of the chest was obtained in the frontal projection. FINDINGS: Pulmonary Parenchyma: Small subpleural opacity is noted in the right lower zone. Blunting of the right costophrenic angle. Thickening of the right fissure. Bilateral hilar prominence and prominent pulmonary markings. Heart and Mediastinum: Mild cardiomegaly.. No mediastinal masses. Bony Thorax: Bony thorax appears intact.. Bilateral shoulder joints show degenerative changes. Soft Tissues: Soft tissues overlying the chest wall are unremarkable. IMPRESSION: 1. Small subpleural opacity in the right lower zone. Could be infiltrated/atelectasis. Clinical correlation and follow-up are recommended. 2. Blunting of the right costophrenic angle. Possibly mild pleural effusion with atelectasis. 3. Bilateral hilar prominence and prominent pulmonary markings. Could be vascular congestion/interstitial pulmonary edema. 4. Mild cardiomegaly. 5. No acute cardiopulmonary abnormalities were identified. Electronically Signed by: Alec Childs MD. (05/11/2024 01:42:17 EST)
--- NOTE | 2024-05-11 01:50 | XRAY ---
CLINICAL HISTORY: pain COMPARISON: None. TECHNIQUE: CT of the abdomen and pelvis was performed, with the following protocol: axial images, and reconstructed coronal and sagittal images. No intravenous contrast was administered. One of the following dose reduction techniques was utilized for this exam: Automated exposure control, adjustment of the mA and/or kV according to patient size, and use of iterative reconstruction. FINDINGS: Sections of lower thorax show minimal bilateral pleural effusion. Round atelectasis in posterobasal segment of right lower lobe. Thin fibroatelectatic bands in both lungs. Abdomen: Liver: Normal in size, and density. No focal lesions, cysts, or masses were identified. Gallbladder and Biliary System: Post cholecystectomy status. Pancreas: Pancreatic parenchymal atrophy. Spleen: Normal in size, shape, and density. No splenic lesions or masses were identified. Kidneys and Adrenal Glands: Mild bilateral perinephric fat stranding noted. Focal 5.5 mm calcification at mid pole of left kidney, possible cortical calcification,Less likely calculus. Few renal cortical cysts on both sides. Both adrenal glands appears slightly bulky and nodular. Pelvis: Urinary Bladder: Normal in contour and wall thickness. Uterus and adnexa appear unremarkable. Peritoneal and Retroperitoneal Structures: No free fluid or abnormal fluid collections were identified within the abdomen or pelvis. The abdominal aorta and its major branches shows atherosclerotic changes with calcified plaques. Bowel: Few scattered uncomplicated diverticulae The visualized bowel loops are normal in caliber and appearance. No evidence of bowel obstruction or wall thickening. Appendix appears unremarkable. Bones and Soft Tissues: Degenerative changes in lumbar spine. Mild retrolisthesis of L1 over L2. Large ventral abdominal wall hernia with bowel loops as content IMPRESSION: 1. Sections of lower thorax show minimal bilateral pleural effusion. Round atelectasis in posterobasal segment of right lower lobe. 2. No definite acute abnormality in CT abdomen and pelvis 3. Mild bilateral perinephric fat stranding noted. 4. Focal 5.5 mm calcification at mid pole of left kidney, possible cortical calcification, less likely calculus. 5. Large ventral abdominal wall hernia with bowel loops as content 6. Uncomplicated diverticulosis. 7. Rest of the findings as detailed above Electronically Signed by: Alec Childs MD. (05/11/2024 01:46:09 EST)
[2024-05-11] MEDS ORDERED: PROVENTIL 2.5 MG/3 ML NEB IH ONE (04:48)
[2024-05-11] MEDS ORDERED: Zofran 4 MG/2 ML VIAL IV PRN (05:21)
[2024-05-11] MEDS ORDERED: HUMALOG SQ PRN (05:22)
[2024-05-11] MEDS ORDERED: Senokot-S Tablet PO PRN (05:24)
--- NOTE | 2024-05-11 05:29 | PCM.HP ---
History of Present Illness - Chief Complaint Chief Complaint: COPD exacerbation, pneumonia, hypoxia Date: 05/11/24 History of Present Illness: is a 68 year old female.With past medical history significant for COPD on home 3 to 5 L oxygen as needed, hypertension, hyperlipidemia, diabetes mellitus type 2, insomnia/anxiety who came to the ER complaining of shortness of breath for last couple of weeks with fever and being constipated. She is a current smoker she use 3 to 5 L oxygen at home only as per need she denied having any chest pain no other GI urinary symptoms reported except being constipated for couple of weeks. In the ER the initial blood pressure was 173/78 she was afebrile with pulse of 87 as well as lab work concerned, all remained essentially negative troponin unremarkable she was tested negative for influenza and COVID D-dimer was running low liver enzymes negative CT abdomen pelvis showed some perinephric fat stranding ventral wall hernia otherwise no acute pathology. X-ray showed some right lower lobe infiltrate atelectasis as w ell. Patient admitted for COPD exacerbation and constipation. - Review of Systems All Other Systems: Reviewed and Negative Medications & Allergies Home Medications: Home Medication List Escitalopram Oxalate [Lexapro] 20 mg PO DAILY 03/01/15 [History Confirmed 05/10/24] Gabapentin 300 mg PO BID 03/01/15 [History Confirmed 05/10/24] Budesonide/Formoterol Fumarate [Symbicort 160-4.5 Mcg Inhaler] 6 gm IH BID 04/05/16 [History Confirmed 05/10/24] Potassium Chloride Tab* [Klor Con] 20 meq PO BID 10/03/17 [History Confirmed 05/10/24] Carvedilol 12.5 mg [Coreg 12.5 mg] 12.5 mg PO BID 12/21/18 [History Confirmed 05/10/24] Furosemide [Lasix] 40 mg PO BID 12/21/18 [History Confirmed 05/10/24] Hydralazine HCl 10 mg PO TID 12/21/18 [History Confirmed 05/11/24] Trazodone HCl 50 mg [Desyrel 50 mg] 150 mg PO HS 12/21/18 [History Confirmed 05/10/24] Polyethylene Glycol 3350 17 gm [Miralax Powder 17GM PACKET] 17 gm PO DAILY 11/19/19 [History Confirmed 05/10/24] Simvastatin 10 mg [Zocor 10MG] 10 mg PO QPM 02/01/19 [History Confirmed 05/10/24] Hydroxyzine HCl 25 mg [Atarax 25 mg] 1 tab PO TID PRN PRN 05/10/24 [History Confirmed 05/10/24] Metformin HCl 500 mg [Glucophage 500 MG] 500 mg PO DAILY 05/11/24 [History Confirmed 05/11/24] Allergies/Adverse Reactions: Allergies Allergy/AdvReac Type Severity Reaction Status Date / Time No Known Drug Allergies Allergy Verified 05/10/24 21:21 - Past Medical History Past Medical History: Yes Neurological History: Seizures ENT History: Cataracts Cardiac History: High Cholesterol, Hypertension Respiratory History: COPD, Pneumonia Endocrine Medical History: No Pertinent History Musculoskelatal History: Osteoarthritis GI Medical History: Gallbladder Disease, Hernia, Other History: Renal Disease Pyscho-Social History: Anxiety, Depression Reproductive Disorders: No Pertinent History Comment: PERF BOWEL 06/2013. pt states she had a seizure because she ran out of xanax, pt states she does not remember it, [facility] Pt states that her kidneys leak protein. - Past Surgical History Past Surgical History: Yes Neuro Surgical History: No Pertinent History Cardiac History: No Pertinent History Respiratory Surgery: No Pertinent History GI Surgical History: Cholecystectomy, Colon Resection Genitourinary Surgical Hx: No Pertinent History Musculskeletal Surgical Hx: No Pertinent History Female Surgical History: No Pertinent History Other Surgical History: colon resection in 2013 Significant Family History: no pertinent family hx - Social History Smoking Status: Former smoker How long have you smoked: 50 years Exposure to second hand smoke: Yes Alcohol: None Drug Use: none - Social Determinants of Health Will the patient participate in the screening: Yes Do you worry about a steady place to live?: No Do you have any problems with any of the following?: No known problems In the past 12 months,have you had to go without utilities?: No Have you or anyone in your house had to go without enough: No Transportation Issues: No Has anyone in your support network made you feel unsafe?: No Does the patient want assistance with any of the above?: No - Physical Exam Vital Signs: Vital Signs - 24 hr Temp Pulse Resp BP BP Pulse Ox 05/11/24 03:07 97.6 F 71 24 192/91 94 L 05/11/24 02:46 95 05/11/24 02:00 83 15 181/117 05/11/24 01:30 82 17 159/62 97 05/11/24 01:00 80 18 198/108 99 05/11/24 00:50 82 19 99 05/11/24 00:46 23 99 05/11/24 00:02 71 18 168/109 97 05/11/24 00:00 77 18 218/107 97 05/10/24 23:30 77 18 180/92 98 05/10/24 23:14 79 17 193/123 05/10/24 23:10 68 30 H 193/123 97 05/10/24 23:01 67 18 97 05/10/24 22:32 77 21 184/94 96 05/10/24 22:30 74 18 201/105 98 05/10/24 22:08 66 21 185/94 97 05/10/24 22:06 71 17 169/123 100 05/10/24 22:00 82 18 95 05/10/24 21:44 95 05/10/24 21:31 26 H 95 05/10/24 21:21 83 24 173/78 100 05/10/24 21:18 97.4 F 87 20 173/78 95 Additional Findings: 05/11/24 05:28 HEENT Young aged, average built in no distress NECK Supple,no thyromegaly, CVS S1+S2 + 0, no murmers RESP Bilateral equal air entry without Crepts/Wheezes heard GIT Soft non tender,non distended Skin, No rah, no Bruises LEGS No Edema PSYCH Normal,m ood, judgement and insight NEURO AOX3, no focal deficit Results - Labs Lab/Micro Results: Lab Results-Last 24 Hours 05/10/24 05/10/24 05/10/24 Range/Units 21:55 21:55 21:55 WBC 9.8 (3.98-10.04) x10^3/uL RBC 3.63 L (3.93-5.22) x10^6/uL Hgb 10.4 L (11.2-15.7) g/dL Hct 33.7 L (34.1-44.9) % MCV 92.8 (79.4-94.8) fL MCH 28.7 (25.6-32.2) pg MCHC 30.9 L (32.2-35.5) g/dL RDW 15.4 H (11.7-14.4) % Plt Count 285 (182-369) x10^3/uL MPV 10.0 (9.4-12.3) fL Gran % 80.2 H (34.0-71.1) % Immature Gran % (Auto) 0.4 (0.001-0.429) % Nucleat RBC Rel Count 0.0 (0.00-0.2) % Eos # (Auto) 0.12 (0.04-0.36) x10^3/uL Immature Gran # (Auto) 0.04 H (0.001-0.031) x10^3u/L Absolute Lymphs (auto) 1.16 L (1.18-3.74) x10^3/uL Absolute Monos (auto) 0.61 (0.24-0.86) x10^3/uL Absolute Nucleated RBC 0.00 (0.00-0.012) x10^3u/L Lymphocytes % 11.8 L (19.3-51.7) % Monocytes % 6.2 (4.7-12.5) % Eosinophils % 1.2 (0.7-5.8) % Basophils % 0.2 (0.1-1.2) % Absolute Granulocytes 7.88 H (1.56-6.13) x10^3/uL Basophils # 0.02 (0.01-0.08) x10^3/uL D-Dimer (0.0-0.50) mg/L Sodium 140 (135-145) mmol/L Potassium 4.4 (3.5-5.1) mmol/L Chloride 95 L (98-107) mmol/L Carbon Dioxide 39 H (22-30) mmol/L Anion Gap 9.8 (5-15) MEQ/L BUN 10 (7-17) mg/dL Creatinine 0.65 (0.52-1.04) mg/dL Estimated GFR 97.0 ML/MIN Glucose 96 (74-106) mg/dL Calcium 8.7 (8.4-10.2) mg/dL Total Bilirubin 0.40 (0.2-1.3) mg/dL AST 20 (14-36) U/L ALT 28 (0-35) U/L Alkaline Phosphatase 73 (38-126) U/L Troponin I 0.014 (0.000-0.033) ng/mL Serum Total Protein 6.0 L (6.3-8.2) g/dL Albumin 3.6 (3.5-5.0) g/dL Influenza Type A Ag (NEGATIVE) Influenza Type B Ag (NEGATIVE) RSV (PCR) (NEGATIVE) SARS-CoV-2 (PCR) (NEGATIVE) 05/10/24 05/10/24 05/11/24 Range/Units 21:55 22:06 01:45 WBC (3.98-10.04) x10^3/uL RBC (3.93-5.22) x10^6/uL Hgb (11.2-15.7) g/dL Hct (34.1-44.9) % MCV (79.4-94.8) fL MCH (25.6-32.2) pg MCHC (32.2-35.5) g/dL RDW (11.7-14.4) % Plt Count (182-369) x10^3/uL MPV (9.4-12.3) fL Gran % (34.0-71.1) % Immature Gran % (Auto) (0.001-0.429) % Nucleat RBC Rel Count (0.00-0.2) % Eos # (Auto) (0.04-0.36) x10^3/uL Immature Gran # (Auto) (0.001-0.031) x10^3u/L Absolute Lymphs (auto) (1.18-3.74) x10^3/uL Absolute Monos (auto) (0.24-0.86) x10^3/uL Absolute Nucleated RBC (0.00-0.012) x10^3u/L Lymphocytes % (19.3-51.7) % Monocytes % (4.7-12.5) % Eosinophils % (0.7-5.8) % Basophils % (0.1-1.2) % Absolute Granulocytes (1.56-6.13) x10^3/uL Basophils # (0.01-0.08) x10^3/uL D-Dimer 0.49 (0.0-0.50) mg/L Sodium (135-145) mmol/L Potassium (3.5-5.1) mmol/L Chloride (98-107) mmol/L Carbon Dioxide (22-30) mmol/L Anion Gap (5-15) MEQ/L BUN (7-17) mg/dL Creatinine (0.52-1.04) mg/dL Estimated GFR ML/MIN Glucose (74-106) mg/dL Calcium (8.4-10.2) mg/dL Total Bilirubin (0.2-1.3) mg/dL AST (14-36) U/L ALT (0-35) U/L Alkaline Phosphatase (38-126) U/L Troponin I < 0.012 (0.000-0.033) ng/mL Serum Total Protein (6.3-8.2) g/dL Albumin (3.5-5.0) g/dL Influenza Type A Ag NEGATIVE (NEGATIVE) Influenza Type B Ag NEGATIVE (NEGATIVE) RSV (PCR) NEGATIVE (NEGATIVE) SARS-CoV-2 (PCR) NEGATIVE (NEGATIVE) - Radiology Impressions Radiology Exams & Impressions: Radiology Procedures Category Date Time Status ABDOMEN AND PELVIS W/0 CONTRAS [CT] Stat Exams 05/11/24 00:02 Completed CHEST 1 VIEW (PORTABLE) Stat Exams 05/10/24 23:18 Completed - Other Procedures and Tests Respiratory Therapy 05/11/24 04:50 Oxygen Nasal Cannula 3 lpm Respiratory Therapy Assessment DAILY Assessment/Plan (1) COPD exacerbation Current Visit: Yes Status: Acute Code(s): J44.1 - CHRONIC OBSTRUCTIVE PULMONARY DISEASE W (ACUTE) EXACERBATION (2) Right lower lobe pulmonary infiltrate Current Visit: Yes Status: Acute Code(s): R91.8 - OTHER NONSPECIFIC ABNORMAL FINDING OF LUNG FIELD (3) Acute on chronic respiratory failure with hypoxemia Current Visit: No Status: Acute Code(s): J96.21 - ACUTE AND CHRONIC RESPIRATORY FAILURE WITH HYPOXIA (4) Constipation Current Visit: Yes Status: Acute Code(s): K59.00 - CONSTIPATION, UNSPECIFIED Telemedicine Encounter - Telemedicine Encounter Telemedicine Encounter: The entirety of this encounter was performed via Telemedicine"This visit was performed using real-time audio and video connection between my location and thepatients locationwith the assistance of a surrogateat the patients location. Written or verbal consent was obtained from the patient/guardian to perform this visit usingAmeriprime technology. Any patient questions regarding the telemedicine interaction were answered. Acute on chronic hypoxemic respiratory failure Due to underlying COPD/pneumonia Tested -ve for influenza/Covid Troponin unremarkable and so does the D-dimer Will check BNP, will check echocardiogram Continue oxygen supplements to keep sats more than 90% patient is currently on 3 L oxygen At home she use 3 to 5 L only as per need Acute COPD exacerbation Continue breathing therapy. I will add Pulmicort Continue steroids Continue antibiotics Right lower lung lobe infiltrate Will check procalcitonin Continue antibiotics Advised incentive spirometry Hypertension, uncontrolled Patient is on Coreg and hydralazine I will add nifedipine 30 mg daily for better blood pressure management Hydralazine as pended for systolic more than 180 Chronic congestive heart failure Ejection fraction unknown Imaging consistent with pulmonary edema and pleural effusion Patient is on Lasix at home resumed here Will check BNP and echocardiogram Constipation Continue Senokot and MiraLAX Will give 1 stat dose of mag citrate Abdominal wall hernia With bowel loops but without obstruction Continue supportive therapy Diabetes mellitus type 2 We will check HbA1c Continue sliding scale Keep holding metformin for now Insomnia Continue trazodone DVT prophylaxis SCD/Lovenox CODE STATUS full Discharge planning pending clinical stability. I have reviewed patient lab vitals and imaging in detail question and concerns addressed
[2024-05-11] MEDS: PROVENTIL 2.5 MG/3 ML NEB IH PRN (05:40)
[2024-05-11] MEDS: solu-MEDROL IV SCH (05:54)
[2024-05-11] MEDS: CITROMA 296 ML PO ONE (05:54)
[2024-05-11] MEDS: DESYREL 50 MG PO ONE (06:26)
[2024-05-11] MEDS: PULMICORT 0.5 MG/2 ML RESPULES IH SCH (07:10)
[2024-05-11] MEDS: DUONEB 0.5-3 MG/3 ml Neb IH SCH (07:10)
[2024-05-11 07:32] LABS: PROCALCITONIN 0.03 ng/mL (0.030-0.080)
[2024-05-11 08:02] LABS: Hematocrit 35.2 % (34.1-44.9); Hemoglobin 10.9 g/dL (11.2-15.7); Mean Cell Volume 92.4 fL (79.4-94.8); Mean Corpuscular Hemoglobin 28.6 pg (25.6-32.2); Mean Platelet Volume 10.6 fL (9.4-12.3); Platelet Count 280 x10^3/uL (182-369); Red Blood Count 3.81 x10^6/uL (3.93-5.22); Red Cell Distribution Width 15.4 % (11.7-14.4); White Blood Count 9.9 x10^3/uL (3.98-10.04)
[2024-05-11 08:36] LABS: ALBUMIN 3.9 g/dL (3.5-5.0); ANION GAP 11.6 MEQ/L (5-15); BILIRUBIN,TOTAL 0.3 mg/dL (0.2-1.3); Calcium 8.9 mg/dL (8.4-10.2); Creatinine 1 0.6 mg/dL (0.52-1.04); EST GLOMERULAR FILTRATION RATE 98.9 ML/MIN; Potassium 4.4 mmol/L (3.5-5.1); Total Protein 6.5 g/dL (6.3-8.2)
[2024-05-11] MEDS: ENOXAPARIN SODIUM SQ SCH (09:40)
[2024-05-11] MEDS: COREG 12.5 MG PO SCH (09:41)
[2024-05-11] MEDS: Glucophage 500 MG PO SCH (09:41)
[2024-05-11] MEDS: NEURONTIN PO SCH (09:41)
[2024-05-11] MEDS: Lexapro PO SCH (09:41)
[2024-05-11] MEDS: Adalat CC 30 MG TABLET PO SCH (09:41)
[2024-05-11] MEDS: Lasix 40 MG PO SCH (09:41)
[2024-05-11] MEDS: Miralax Powder 17GM PACKET PO SCH (09:41)
[2024-05-11] MEDS ORDERED: Miralax Powder 17GM PACKET PO SCH (10:00)
[2024-05-11] MEDS: Sinemet 25/100 MG PO SCH (10:43)
[2024-05-11] MEDS: ATARAX 25 MG PO PRN (12:33)
[2024-05-11] MEDS: APRESOLINE 20 MG/ML INJ IV PRN (12:33)
[2024-05-11] MEDS ORDERED: Sterile H2O 10 ml IJ ONE (13:22)
[2024-05-11] MEDS: solu-MEDROL 40 MG, Sterile H2O 10 ml 1 ML IV SCH (13:38)
[2024-05-11] MEDS: NORCO 5/325 MG PO PRN (16:17)
[2024-05-11 16:39] LABS: Appearance Clear (Clear); Bacteria None Seen /HPF (None Seen); Bilirubin Negative (Negative); Blood Negative (Negative); Epithelial Cells None Seen /HPF (None Seen); Glucose, Urine Negative (Negative); Hyaline Casts NONE SEEN /LPF (0-2); Ketones Negative (Negative); Leukocyte Esterase Negative (Negative); Nitrite Negative (Negative); Ph 6.5 (4.6-8.0); Protein,Urine Dip Negative (Negative); RBC 0-2 /HPF (0-5); Specific Gravity <=1.005 (1.005-1.030); Urobilinogen 0.2 mg/dL (0.2); WBC 0-2 /HPF (0-5)
[2024-05-11] MEDS: Zocor 10MG PO SCH (21:31)
[2024-05-11] MEDS: ROCEPHIN 1 GM / 100 ML NaCl 1 GM/100 ML IVPB IV SCH (21:31)
[2024-05-11] MEDS: DESYREL 50 MG PO SCH (21:32)
[2024-05-11] MEDS: Zithromax 500 MG/ 250 ML NaCl Premix 500 MG/250 ML IVPB IV SCH (22:29)
[2024-05-12] MEDS: TYLENOL 325 MG PO PRN (00:27)
[2024-05-12 06:00] LABS: Hematocrit 31.3 % (34.1-44.9); Hemoglobin 9.5 g/dL (11.2-15.7); Mean Cell Volume 91.5 fL (79.4-94.8); Mean Corpuscular Hemoglobin 27.8 pg (25.6-32.2); Mean Corpuscular Hgb Concent. 30.4 g/dL (32.2-35.5); Mean Platelet Volume 10.8 fL (9.4-12.3); Platelet Count 263 x10^3/uL (182-369); Red Blood Count 3.42 x10^6/uL (3.93-5.22); Red Cell Distribution Width 15.6 % (11.7-14.4); White Blood Count 9.9 x10^3/uL (3.98-10.04)
[2024-05-12 07:03] LABS: ANION GAP 9.6 MEQ/L (5-15); Calcium 8.4 mg/dL (8.4-10.2); Creatinine 1 0.74 mg/dL (0.52-1.04); EST GLOMERULAR FILTRATION RATE 89.2 ML/MIN; Potassium 3.7 mmol/L (3.5-5.1)
--- NOTE | 2024-05-12 07:55 | PCM.DS ---
Discharge Summary Date of Admission: 05/11/24 03:02 Date of Discharge: 05/12/24 Admitting Physician: LINDA ROBLES MD Consults: Consults on Case 05/11/24 11:00 Consult Surgery ROUTINE Primary Care Provider: VALENCIA LOPEZ Allergies Allergies No Known Drug Allergies Allergy (Verified 05/10/24 21:21) Hospital Summary - Hospital Course Hospital Course: 05/12/24 is a 68 year old female.With past medical history significant for COPD on home 3 to 5 L oxygen as needed, hypertension, hyperlipidemia, diabetes mellitus type 2, and insomnia/anxiety. She came to the ER on 05/11/24 complaining of shortness of breath for last couple of weeks with fever and being constipated. She is a current smoker she uses 3 to 5 L oxygen at home only as per need she denied having any chest pain no other GI urinary symptoms reported except being constipated for couple of weeks. This has resolved since admission. In the ER the initial blood pressure was 173/78 she was afebrile with pulse of 87 as well as lab work concerned, all remained essentially negative troponin unremarkable. She tested negative for influenza and COVID.D-dimer negative. CT abdomen pelvis showed some perinephric fat stranding ventral wall hernia otherwise no acute pathology. UA negative X-ray showed some right lower lobe infiltrate atelectasis as well. Patient admitted for COPD exacerbation, pneumonia, and constipation. Today she is on baseline O2 of 3LNC at 98%. BC x2 negative. Surgery consulted yesterday for hernia and explained she is not a surgical candidate at this time. Pt ready to d/c home today. She reports feeling much better. Labs overall improved. Will continue OP antibiotics and steroids. She denies any further concerns at this time. - Vitals & Intake/Output Vital Signs: Vital Signs Temperature 97.7 F 05/12/24 07:23 Pulse Rate 75 05/12/24 07:23 Respiratory Rate 16 05/12/24 07:23 Blood Pressure 159/70 05/12/24 07:23 O2 Sat by Pulse Oximetry 98 05/12/24 07:23 Intake & Output: Intake & Output 05/09/24 05/10/24 05/11/24 05/12/24 11:59 11:59 11:59 11:59 Intake Total 480 1416 Output Total 200 600 Balance 280 816 Weight 76.8 kg - Lab Result Diagrams: 05/12/24 04:44 05/12/24 04:44 Lab Results-Last 24 Hrs: Lab Results-Last 24 Hours 05/11/24 05/11/24 05/11/24 Range/Units 06:38 06:38 06:38 WBC 9.9 (3.98-10.04) x10^3/uL RBC 3.81 L (3.93-5.22) x10^6/uL Hgb 10.9 L (11.2-15.7) g/dL Hct 35.2 (34.1-44.9) % MCV 92.4 (79.4-94.8) fL MCH 28.6 (25.6-32.2) pg MCHC 31.0 L (32.2-35.5) g/dL RDW 15.4 H (11.7-14.4) % Plt Count 280 (182-369) x10^3/uL MPV 10.6 (9.4-12.3) fL Sodium 138 (135-145) mmol/L Potassium 4.4 (3.5-5.1) mmol/L Chloride 95 L (98-107) mmol/L Carbon Dioxide 36 H (22-30) mmol/L Anion Gap 11.6 (5-15) MEQ/L BUN 11 (7-17) mg/dL Creatinine 0.60 (0.52-1.04) mg/dL Estimated GFR 98.9 ML/MIN Glucose 180 H (74-106) mg/dL POC Glucometer (74 to 106) mg/dL Hemoglobin A1c (4.5-6.0) % Calcium 8.9 (8.4-10.2) mg/dL Magnesium 1.9 (1.6-2.3) mg/dL Total Bilirubin 0.30 (0.2-1.3) mg/dL AST 23 (14-36) U/L ALT 30 (0-35) U/L Alkaline Phosphatase 77 (38-126) U/L Serum Total Protein 6.5 (6.3-8.2) g/dL Albumin 3.9 (3.5-5.0) g/dL Urine Color (Yellow) Urine Appearance (Clear) Urine pH (4.6-8.0) Ur Specific [place] (1.005-1.030) Urine Protein (Negative) Urine Glucose (UA) (Negative) mg/dL Urine Ketones (Negative) Urine Blood (Negative) Urine Nitrite (Negative) Urine Bilirubin (Negative) Urine Urobilinogen (0.2) mg/dL Ur Leukocyte Esterase (Negative) U Hyaline Cast (Auto) (0-2) /LPF Urine Microscopic RBC (0-5) /HPF Urine Microscopic WBC (0-5) /HPF Ur Epithelial Cells (None Seen) /HPF Urine Bacteria (None Seen) /HPF Urine Culture Reflexed (NO) 05/11/24 05/11/24 05/11/24 Range/Units 06:38 16:25 16:32 WBC (3.98-10.04) x10^3/uL RBC (3.93-5.22) x10^6/uL Hgb (11.2-15.7) g/dL Hct (34.1-44.9) % MCV (79.4-94.8) fL MCH (25.6-32.2) pg MCHC (32.2-35.5) g/dL RDW (11.7-14.4) % Plt Count (182-369) x10^3/uL MPV (9.4-12.3) fL Sodium (135-145) mmol/L Potassium (3.5-5.1) mmol/L Chloride (98-107) mmol/L Carbon Dioxide (22-30) mmol/L Anion Gap (5-15) MEQ/L BUN (7-17) mg/dL Creatinine (0.52-1.04) mg/dL Estimated GFR ML/MIN Glucose (74-106) mg/dL POC Glucometer 116 H (74 to 106) mg/dL Hemoglobin A1c 5.91 (4.5-6.0) % Calcium (8.4-10.2) mg/dL Magnesium (1.6-2.3) mg/dL Total Bilirubin (0.2-1.3) mg/dL AST (14-36) U/L ALT (0-35) U/L Alkaline Phosphatase (38-126) U/L Serum Total Protein (6.3-8.2) g/dL Albumin (3.5-5.0) g/dL Urine Color Yellow (Yellow) Urine Appearance Clear (Clear) Urine pH 6.5 (4.6-8.0) Ur Specific [place] <=1.005 (1.005-1.030) Urine Protein Negative (Negative) Urine Glucose (UA) Negative (Negative) mg/dL Urine Ketones Negative (Negative) Urine Blood Negative (Negative) Urine Nitrite Negative (Negative) Urine Bilirubin Negative (Negative) Urine Urobilinogen 0.2 (0.2) mg/dL Ur Leukocyte Esterase Negative (Negative) U Hyaline Cast (Auto) NONE SEEN (0-2) /LPF Urine Microscopic RBC 0-2 (0-5) /HPF Urine Microscopic WBC 0-2 (0-5) /HPF Ur Epithelial Cells None Seen (None Seen) /HPF Urine Bacteria None Seen (None Seen) /HPF Urine Culture Reflexed NO (NO) 05/11/24 05/12/24 05/12/24 Range/Units 22:14 04:44 04:44 WBC 9.9 (3.98-10.04) x10^3/uL RBC 3.42 L (3.93-5.22) x10^6/uL Hgb 9.5 L (11.2-15.7) g/dL Hct 31.3 L (34.1-44.9) % MCV 91.5 (79.4-94.8) fL MCH 27.8 (25.6-32.2) pg MCHC 30.4 L (32.2-35.5) g/dL RDW 15.6 H (11.7-14.4) % Plt Count 263 (182-369) x10^3/uL MPV 10.8 (9.4-12.3) fL Sodium 139 (135-145) mmol/L Potassium 3.7 (3.5-5.1) mmol/L Chloride 94 L (98-107) mmol/L Carbon Dioxide 39 H (22-30) mmol/L Anion Gap 9.6 (5-15) MEQ/L BUN 21 H (7-17) mg/dL Creatinine 0.74 (0.52-1.04) mg/dL Estimated GFR 89.2 ML/MIN Glucose 199 H (74-106) mg/dL POC Glucometer 156 H (74 to 106) mg/dL Hemoglobin A1c (4.5-6.0) % Calcium 8.4 (8.4-10.2) mg/dL Magnesium (1.6-2.3) mg/dL Total Bilirubin (0.2-1.3) mg/dL AST (14-36) U/L ALT (0-35) U/L Alkaline Phosphatase (38-126) U/L Serum Total Protein (6.3-8.2) g/dL Albumin (3.5-5.0) g/dL Urine Color (Yellow) Urine Appearance (Clear) Urine pH (4.6-8.0) Ur Specific [place] (1.005-1.030) Urine Protein (Negative) Urine Glucose (UA) (Negative) mg/dL Urine Ketones (Negative) Urine Blood (Negative) Urine Nitrite (Negative) Urine Bilirubin (Negative) Urine Urobilinogen (0.2) mg/dL Ur Leukocyte Esterase (Negative) U Hyaline Cast (Auto) (0-2) /LPF Urine Microscopic RBC (0-5) /HPF Urine Microscopic WBC (0-5) /HPF Ur Epithelial Cells (None Seen) /HPF Urine Bacteria (None Seen) /HPF Urine Culture Reflexed (NO) 05/12/24 Range/Units 07:33 WBC (3.98-10.04) x10^3/uL RBC (3.93-5.22) x10^6/uL Hgb (11.2-15.7) g/dL Hct (34.1-44.9) % MCV (79.4-94.8) fL MCH (25.6-32.2) pg MCHC (32.2-35.5) g/dL RDW (11.7-14.4) % Plt Count (182-369) x10^3/uL MPV (9.4-12.3) fL Sodium (135-145) mmol/L Potassium (3.5-5.1) mmol/L Chloride (98-107) mmol/L Carbon Dioxide (22-30) mmol/L Anion Gap (5-15) MEQ/L BUN (7-17) mg/dL Creatinine (0.52-1.04) mg/dL Estimated GFR ML/MIN Glucose (74-106) mg/dL POC Glucometer 172 H (74 to 106) mg/dL Hemoglobin A1c (4.5-6.0) % Calcium (8.4-10.2) mg/dL Magnesium (1.6-2.3) mg/dL Total Bilirubin (0.2-1.3) mg/dL AST (14-36) U/L ALT (0-35) U/L Alkaline Phosphatase (38-126) U/L Serum Total Protein (6.3-8.2) g/dL Albumin (3.5-5.0) g/dL Urine Color (Yellow) Urine Appearance (Clear) Urine pH (4.6-8.0) Ur Specific [place] (1.005-1.030) Urine Protein (Negative) Urine Glucose (UA) (Negative) mg/dL Urine Ketones (Negative) Urine Blood (Negative) Urine Nitrite (Negative) Urine Bilirubin (Negative) Urine Urobilinogen (0.2) mg/dL Ur Leukocyte Esterase (Negative) U Hyaline Cast (Auto) (0-2) /LPF Urine Microscopic RBC (0-5) /HPF Urine Microscopic WBC (0-5) /HPF Ur Epithelial Cells (None Seen) /HPF Urine Bacteria (None Seen) /HPF Urine Culture Reflexed (NO) Micro Results-Entire Visit: Microbiology 05/10/24 21:59 Blood Culture - Preliminary Blood 05/10/24 22:06 Blood Culture - Preliminary Blood Accuchecks Date 05/12/24 Date 05/11/24 Date 05/11/24 Time 07:37 Time 16:30 - Radiology Exams Ordered Rad Exams-Entire Visit: Radiology Procedures Category Date Time Status ABDOMEN AND PELVIS W/0 CONTRAS [CT] Stat Exams 05/11/24 00:02 Completed CHEST 1 VIEW (PORTABLE) Stat Exams 05/10/24 23:18 Completed ECHO W/2D AND DOPPLER [US] Routine Exams 05/11/24 05:49 Taken - Procedures and Test Procedures and Tests throughout Hospitalization: Therapy Orders & Screens 05/10/24 22:02 Respiratory Therapy Assessment DAILY Comment: 05/11/24 04:50 Oxygen Nasal Cannula 3 lpm Comment: Diagnosis: COPD exacerbation, pneumonia, hypoxia Respiratory Therapy Assessment DAILY Comment: Diagnosis: COPD exacerbation, pneumonia, hypoxia 05/11/24 07:30 ST Screen per Nursing Assess ONCE Comment: Protocol Order Physician Instructions: Greater than [address] Admission Screening Reason For Exam: Triggered on Admission Diagnosis: COPD exacerbation, pneumonia, hypoxia CVA/Dysphagia/Aphasia: No Cognitive Deficits: No Dehydration/Nutrition Deficit: No Reflux: No Oral-Motor Difficulties: No Pneumonia: Yes Halfway Resident: No Total Points: 5 05/11/24 12:41 EKG ROUTINE Comment: CHANGE IN TELE STRIP Diagnosis: COPD exacerbation, pneumonia, hypoxia EKG Reason: Other Discharge Exam General Appearance: no apparent distress, alert, obese Neurologic Exam: alert, oriented x 3, cooperative, normal mood/affect, nml cerebellar function, sensation nml, No motor deficits Eye Exam: PERRL, EOMI, eyes nml inspection Ears, Nose, Throat Exam: normal ENT inspection, pharynx normal, moist mucous membranes Neck Exam: normal inspection, non-tender, supple, full range of motion Respiratory Exam: normal breath sounds, lungs clear, No respiratory distress Cardiovascular Exam: regular rate/rhythm, normal heart sounds Gastrointestinal/Abdomen Exam: soft, hernia, No tenderness, No mass Pelvic Exam: deferred, other (large hital hernia) Rectal Exam: deferred Back Exam: normal inspection, normal range of motion, No CVA tenderness, No vertebral tenderness Extremity Exam: normal inspection, normal range of motion Skin Exam: normal color, warm, dry Final Diagnosis/Problem List - Final Discharge Diagnosis/Problem (1) COPD exacerbation Current Visit: Yes Status: Acute Assessment & Plan: -Continue breathing therapy. I will add Pulmicort -Continue steroids -Continue antibiotics Code(s): J44.1 - CHRONIC OBSTRUCTIVE PULMONARY DISEASE W (ACUTE) EXACERBATION (2) Right lower lobe pulmonary infiltrate Current Visit: Yes Status: Acute Assessment & Plan: - Will check procalcitonin- negative- likley COPD, CHF - Continue antibiotics for COPD - Advised incentive spirometry Code(s): R91.8 - OTHER NONSPECIFIC ABNORMAL FINDING OF LUNG FIELD (3) Acute on chronic respiratory failure with hypoxemia Current Visit: No Status: Acute Assessment & Plan: -Due to underlying COPD/pneumonia -Tested -ve for influenza/Covid -Troponin and D-dimer, unremarkable -Will check BNP- 2850 -will check echocardiogram- echo results pending will need to f/u OP with PCP - no edema -Continue oxygen supplements to keep sats more than 90% patient is currently on 3 L oxygen - At home she use 3 to 5 L only as per need - on baseline O2 3lNC 98% Code(s): J96.21 - ACUTE AND CHRONIC RESPIRATORY FAILURE WITH HYPOXIA (4) Restless leg Current Visit: Yes Status: Acute Assessment & Plan: - sinemet - need to discuss OP with PCP (5) Anxiety Current Visit: No Status: Chronic Assessment & Plan: - hydroxyzine PRN Code(s): F41.9 - ANXIETY DISORDER, UNSPECIFIED (6) Hypertension Current Visit: No Status: Chronic Assessment & Plan: -Patient is on Coreg and hydralazine -I will add nifedipine 30 mg daily for better blood pressure management- continue OP -Hydralazine as nended for systolic more than 180 Code(s): I10 - ESSENTIAL (PRIMARY) HYPERTENSION (7) Obesity (BMI 30.0-34.9) Current Visit: Yes Status: Acute Assessment & Plan: - advised diet and exercise control Code(s): E66.811 - OBESITY, CLASS 1 (8) Constipation Current Visit: Yes Status: Resolved Assessment & Plan: - Continue Senokot and MiraLAX -- 1 stat dose of mag citrate - resolved Code(s): K59.00 - CONSTIPATION, UNSPECIFIED - Discharge Discharge Date: 05/12/24 Disposition: Home, Self-Care Condition: Stable Prescriptions: New Prednisone 20 mg [Deltasone 20 mg] 20 mg PO BID 5 Days #10 tablet cefuroxime axetiL [Cefuroxime] 500 mg PO BID 7 Days #14 tablet Nifedipine Xl 30 mg [Adalat CC 30 MG TABLET] 30 mg PO DAILY 30 Days #30 tablet Continue Gabapentin 300 mg PO BID Escitalopram Oxalate [Lexapro] 20 mg PO DAILY Budesonide/Formoterol Fumarate [Symbicort 160-4.5 Mcg Inhaler] 6 gm IH BID Potassium Chloride Tab* [Klor Con] 20 meq PO BID Furosemide [Lasix] 40 mg PO BID Carvedilol 12.5 mg [Coreg 12.5 mg] 12.5 mg PO BID Hydralazine HCl 10 mg PO TID Trazodone HCl 50 mg [Desyrel 50 mg] 150 mg PO HS Polyethylene Glycol 3350 17 gm [Miralax Powder 17GM PACKET] 17 gm PO DAILY Simvastatin 10 mg [Zocor 10MG] 10 mg PO QPM Hydroxyzine HCl 25 mg [Atarax 25 mg] 1 tab PO TID PRN PRN PRN Reason: Anxiety Metformin HCl 500 mg [Glucophage 500 MG] 500 mg PO DAILY Follow up with: VALENCIA LOPEZ [Primary Care Provider] - 05/19/24 2:15 pm
[2024-05-12] MEDS: solu-MEDROL 40 MG, Sterile H2O 10 ml 1 ML IV SCH (09:38)
--- NOTE | 2024-05-12 10:49 | CONS ---
HISTORY: This is a 68-year-old female who presented to [facility] and was admitted. She has multiple acute diagnoses including an exacerbation of her hypertension, as well as pneumonia, which she is being treated for by the medical physicians. I have been consulted for an abdominal hernia. The patient states that she has had this hernia for many years. It has been extremely large for many years. She does not want to fix this hernia and does not want to have surgery. She says that she has had surgery previously and had to be on the ventilator with a long hospital course after surgery. She also is on 3 to 5L of oxygen daily at home for COPD. Currently, her blood pressure has been very high and today her highest blood pressure was 218/107. She is not nauseous. She is eating okay. Her abdominal pain has decreased. She is able to get up. She wants to leave the hospital. She is passing gas and she also had a large bowel movement today. Her past medical history and past surgical history are consistent with cholecystectomy, colectomy, chronic large ventral hernia, COPD, hypertension, hyperlipidemia, diabetes, anxiety, history of a seizure. PHYSICAL EXAMINATION: GENERAL: No acute distress. CARDIOVASCULAR: Regular, rate and rhythm. PULMONARY: Nonlabored respirations on oxygen. ABDOMEN: Soft, not tender. Large ventral incisional hernia that starts at the center of her midline incision and extends superiorly and to the right. This is an extremely large defect with loss of domain and contains bowel. It is extremely soft. There are chronic skin changes with slightly thinned skin here due to the chronicity. There are no acute skin changes. There is no cellulitis and again, she is not tender at all here. The rest of her abdomen is nontender. She is obese. LABORATORY: Labs have been reviewed. Her creatinine is 0.6. Her white blood cell count is 9.9. Her hemoglobin is slightly low at 10.9. CT scan, she has some perinephric stranding, diverticulosis, and the large hernia with loss of domain containing bowel. ASSESSMENT AND PLAN: This is a patient with multiple medical comorbidities. She is an extremely poor surgical candidate for ventral hernia repair. Should she elect to proceed with a ventral hernia repair down the road, her blood pressure, diabetes and COPD would have to be optimized and I would expect she would need a full abdominal reconstruction and likely would remain intubated after the procedure. She understands this and she does not want to consider surgery at this time. I did let her and her nurse know that she does have a mild anemia. Our group will be happy to see her in consultation as an outpatient for evaluation for EGD and colonoscopy if this is needed for her hemoglobin workup once her blood pressure is stable on an outpatient basis. We are also happy to reexamine her hernia, but at this time, we recommend no surgical intervention. Thank you for the consult.
[2024-05-12 16:18] VITALS: BP 139/63; PULSE 76; RESP 20; TEMP 97.3; O2SAT 95
== END 2024-05-12 16:05 | disposition home or self-care (01) ==
LOC: ED 21:15 → MED SURG 05-11 03:02
PROVIDERS: ADMIT Internal Medicine; ATTEND Internal Medicine
DX: J44.1 Chronic obstructive pulmonary disease with (acute) exacerbation (principal); R91.8 Other nonspecific abnormal finding of lung field; J96.21 Acute and chronic respiratory failure with hypoxia; G25.81 Restless legs syndrome; F41.9 Anxiety disorder, unspecified; I10 Essential (primary) hypertension; E66.811 Obesity, class 1; K59.00 Constipation, unspecified; F17.200 Nicotine dependence, unspecified, uncomplicated; E78.5 Hyperlipidemia, unspecified; E11.9 Type 2 diabetes mellitus without complications; K46.9 Unspecified abdominal hernia without obstruction or gangrene; G47.00 Insomnia, unspecified; Z99.81 Dependence on supplemental oxygen; Z79.899 Other long term (current) drug therapy
CPT/HCPCS: 0241U; 36415; 71045; 74176; 80048; 80053; 81001; 82947; 83036; 83735; 83880; 84145; 84484; 85025; 85027; 85379; 87040; 93005; 93041; 93306; 94640; 94760; 96374; 99285; Q3014; 93268; J0360; J0456; J0696; J1650; J2919; J7609; A9270-GY; G0378